=== PATIENT | female | born 1955 | race Caucasian/White ===

== ENCOUNTER 2017-07-29 08:45 | Outpatient (CLI) | payer MEDICAID ==
[~2017-07-29] VITALS: Ht 162.6 cm; Wt 124.4 kg
[2017-07-29] VITALS (18 sets, daily range): BP systolic 128–171; BP diastolic 53–73
[~2017-07-29 08:45] MED LIST: FENOFIBRATE MIC67 MG PO; GLYBURIDE 5MG TA5 MG PO; JANUVIA100 MG PO; LEVOTHYROXIN0.088 MG PO; LISINOPRIL 20MG20 MG PO; METFORMIN 500M500 MG PO; SIMVASTATIN20 MG PO
[2017-07-29 09:28] LABS: HEMOGLOBIN 6.8 g/dL (12.2-16.2)
[2017-07-29 10:13] LABS: ABO BLOOD TYPE A; RH BLOOD TYPE NEGATIVE
[2017-07-29 10:35] LABS: ANTIHUMAN GLOB CROSSMATCH COMPAT
[2017-07-29] MEDS ORDERED: ACTONEL30 MG PO (15:29)
[2017-07-29] MEDS ORDERED: ACTOS30 MG PO (15:30)
[2017-07-29] MEDS ORDERED: ASPIRIN 81MG TA81 MG PO (15:31)
[2017-07-29] MEDS ORDERED: LIPITOR40 MG PO (15:32)
[2017-07-29] MEDS ORDERED: HYDROCHLOROTHIA25 M1 PO (15:33)
[2017-07-29] MEDS ORDERED: METFORMIN500 MG PO (15:49)
[2017-07-29] MEDS ORDERED: DAILY MULTIPLE1 TA8 PO (15:51)
[2017-07-29] MEDS ORDERED: NORVASC 10MG. T10 MG PO (15:52)
[2017-07-29] MEDS ORDERED: WARFARIN SODIUM4 MG PO (15:53)
[2017-07-29 15:54] LABS: HEMOGLOBIN 9.2 g/dL (12.2-16.2)
[2017-07-29] MEDS ORDERED: DOCUSATE SODIU100 MG PO (15:54)
[2017-07-29] MEDS ORDERED: FLORANEX PO (15:59)
[2017-07-29] MEDS ORDERED: NOVAPLUS SC (16:00)
[2017-07-29] MEDS ORDERED: GABAPENTIN300 MG PO (16:01)
[2017-07-29] MEDS ORDERED: TYLENOL ES500 MG PO (16:05)
== END 2017-07-29 16:45 | disposition home or self-care (01) ==
LOC: COP 08:45
PROVIDERS: Internal Medicine Adolescent Medicine
DX: D64.9 Anemia, unspecified (principal)
CPT/HCPCS: P9016

== ENCOUNTER 2017-08-21 14:36 | Emergency (ER) | payer MEDICAID ==
[~2017-08-21] VITALS: Ht 162.6 cm; Wt 116.1 kg
[~2017-08-21 14:36] MED LIST changes: +ACTONEL30 MG PO; +ACTOS30 MG PO; +ASPIRIN 81MG TA81 MG PO; +DAILY MULTIPLE1 TA8 PO; +DOCUSATE SODIU100 MG PO; +FLORANEX PO; +GABAPENTIN300 MG PO; +HYDROCHLOROTHIA25 M1 PO; +LIPITOR40 MG PO; +METFORMIN500 MG PO; +NORVASC 10MG. T10 MG PO; +NOVAPLUS SC; +TYLENOL ES500 MG PO; +WARFARIN SODIUM4 MG PO
--- OUTSIDE RECORDS SUMMARY | 2017-08-21 14:42 | External Medical Summary Rpt | Continuity of Care Document ---
Author Author Organization Address Unknown Phone Unavailable Care Team Providers Care Nursing Assoc Name Role Phone , Unavailable Unavailable EMS Current Medications Section EMS Allergies and Adverse Reactions EMS Past Medical History Medications Administered Section EMS Procedures Performed EMS Vital Signs EMS Patient Care Report Narrative [CHIEF COMPLAINT / RESPONSE] EC-1 was dispatched to [address] [place] [address] for a patient that is unresponsive. Unit responded emergently, with lights and sirens to the scene. Upon arrival at scene EC-2 found a 62 year old female laying supine on bed at residence. The general impression of the patient was unresponsive. The Chief Complaint for the patient is unresponsive. Family on scene stated that patient was complaining of dizziness before passing out on bed. Patient was placed on EMS stretcher and secured with seat belts and stretcher was secured into ambulance. Patient was positioned on stretcher in supine position. [HISTORY OF PRESENT ILLNESS] History was unable to be obtained from patient. Symptoms started about 10 minutes ago. This is rare problem for the patient. The last time this occurred was unknown. This is a rare problem that is severe now. Family on scene requests transport to Emergency Department for evaluation. [TREATMENTS ATTEMPTED PRIOR TO EMS ARRIVAL] No treatments were preformed prior to EMS arrival. [ASSESSMENT - PRIMARY] The Swatch Maker has performed a complete head to toe ALS assessment on the patient. MENTAL STATUS: Patient is unconscious and not alert. Patient is not oriented to person, place, event and time. GCS of 15. This is not normal for the patient. SKIN: [place], warm and dry HEENT/NEURO: Neuro assessment unable to preform; No JVD; positive loss of consciousness; Pupils constricted, round and unreactive to light; Trachea mid- line; All else within normal limits. CHEST/RESPIRATORY: Airway patent; Equal chest rise; Lung sounds clear bilaterally; ABDOMEN/GI: Unable to assess BACK: No abnormalities seen visually PELVIC/: Pelvis stable; Unremarkable EXTREMITIES: Good pulse in all extremities. [VITALS] : 189/120, 81 bpm, 14 rr, 95% ra, 118 bgl; 115/87, 65 bpm, 14 rr, 100% O2; 178/94, 66 bpm, 14 rr, 100% O2; 177/94, 68 bpm, 14 rr, 100% O2; 180/91, 66 bpm, 14 rr, 100% O2; 159/78, 60 bpm, 14 rr, 100% O2; 12 lead was preformed which showed the patient to be in a normal sinus rhythm with atrial fib. [RX / TREATMENT] : IO was established for possible medication and/or fluid administration; 500ml bolus of normal saline was given which had no change in patient condition; Second IV was established for medication administration; 2mg of Narcan was administered which had no change in patient condition. During transport patients O2 saturation dropped to 84%. O2 was administered via NC which improved patient O2 vital sign. [ASSESSMENT - SECONDARY] An ongoing assessment was performed every 5 minutes. No change in patient condition. [TRANSPORT] Patient was transported without incident and without delay to [facility] ED. Patient moved from stretcher to emergency department bed via draw sheet. IO and IV line still patent, no swelling or discoloration at insertion site. Patient care and report given to emergency department nurse Ella Vaughn RN. Ella Vaughn RN taking over patient care did not have any questions and received a patient report that included the patient's medications, treatments, medical history and billing information. [DOCUMENTATION/HANDOFF]: Nurse signed consent and HIPAA on paper form. Nurse signed for patient transfer of care on paper. Notice of Privacy Practices pamphlet was left with patient. [NECESSITY STATEMENT] : Patient was transported by EMS in an emergency situation due to unresponsive. [OTHER] : All times in this report are approximate. End report. Promise NR [id number]
--- OUTSIDE RECORDS SUMMARY | 2017-08-21 14:42 | External Medical Summary Rpt | Continuity of Care Document ---
Author Author Organization Address Unknown Phone Unavailable Care Team Providers Care State Fire Marshal Name Role Phone , Unavailable Unavailable EMS Current Medications Section EMS Allergies and Adverse Reactions EMS Past Medical History Medications Administered Section EMS Procedures Performed EMS Vital Signs EMS Patient Care Report Narrative [CHIEF COMPLAINT / RESPONSE] EC-1 was dispatched to [address] [place] [address] for a patient that is unresponsive. Unit [...] to EMS arrival. [ASSESSMENT - PRIMARY] The C[employer]pillar Mechanic has performed a complete head to toe ALS assessment on the patient. MENTAL STATUS: Patient is unconscious and not alert. Patient is not oriented to person, place, event and time. GCS of 15. This is not normal for the patient. SKIN: [place], warm and dry HEENT/NEURO: Neuro assessment unable [...] transported without incident and without delay to [facility] ED. Patient moved from stretcher to [...] report are approximate. End report. Promise NR [id number]
--- OUTSIDE RECORDS SUMMARY | 2017-08-21 14:42 | External Medical Summary Rpt | Continuity of Care Document ---
Author Author Organization Address Unknown Phone Unavailable Care Team Providers Care Supervisor Kennel Name Role Phone , Unavailable Unavailable EMS Current Medications Section EMS Allergies and Adverse Reactions EMS Past Medical History Medications Administered Section EMS Procedures Performed EMS Vital Signs EMS Patient Care Report Narrative [CHIEF COMPLAINT / RESPONSE] EC-1 was dispatched to [address] [place] [address] for a patient that is unresponsive. Unit [...] to EMS arrival. [ASSESSMENT - PRIMARY] The Stencil Maker has performed a complete head to toe ALS assessment on the patient. MENTAL STATUS: Patient is unconscious and not alert. Patient is not oriented to person, place, event and time. GCS of 15. This is not normal for the patient. SKIN: [place], warm and dry HEENT/NEURO: Neuro assessment unable [...] transported without incident and without delay to [facility] ED. Patient moved from stretcher to emergency [...] report are approximate. End report. Promise NR [id number]
--- OUTSIDE RECORDS SUMMARY | 2017-08-21 14:42 | External Medical Summary Rpt | Continuity of Care Document ---
Author Author Organization Address Unknown Phone Unavailable Care Team Providers Care Transition Manager Name Role Phone , Unavailable Unavailable EMS Current Medications Section EMS Allergies and Adverse Reactions EMS Past Medical History Medications Administered Section EMS Procedures Performed EMS Vital Signs EMS Patient Care Report Narrative [CHIEF COMPLAINT / RESPONSE] EC-1 was dispatched to [address] [place] [address] for a patient that is unresponsive. Unit [...] to EMS arrival. [ASSESSMENT - PRIMARY] The Supervisor Force Adjustment has performed a complete head to toe ALS assessment on the patient. MENTAL STATUS: Patient is unconscious and not alert. Patient is not oriented to person, place, event and time. GCS of 15. This is not normal for the patient. SKIN: [place], warm and dry HEENT/NEURO: Neuro assessment unable [...] transported without incident and without delay to [facility] ED. Patient moved from stretcher to emergency [...] report are approximate. End report. Promise NR [id number]
--- OUTSIDE RECORDS SUMMARY | 2017-08-21 14:43 | External Medical Summary Rpt | Continuity of Care Document ---
Author Author Organization Address Unknown Phone Unavailable Care Team Providers Care Mechanical Equipment Test Engineer Name Role Phone , Unavailable Unavailable EMS Current Medications Section EMS Allergies and Adverse Reactions EMS Past Medical History Medications Administered Section EMS Procedures Performed EMS Vital Signs EMS Patient Care Report Narrative Dispatched to for patient transport to [facility] in [facility]. Patient was admitted to hospital following CVA. Patient is being transported by ambulance to facility due to weakness in lower extremities from CVA. Patient was found in bed semi diaz's and transferred to and from [facility] via drawsheet X4. Patient is A/O X2 and her GCS remained 13 throughout transport. Patients vitals were taken and remained stable. Patient transport was completed with no complications. When arriving at destination patient care and report were transferred to facility staff.
--- OUTSIDE RECORDS SUMMARY | 2017-08-21 14:43 | External Medical Summary Rpt | Continuity of Care Document ---
Author Author Organization Address Unknown Phone Unavailable Care Team Providers Care Visiting Housekeeper Name Role Phone , Unavailable Unavailable EMS Current Medications Section EMS Allergies and Adverse Reactions EMS Past Medical History Medications Administered Section EMS Procedures Performed EMS Vital Signs EMS Patient Care Report Narrative Dispatched to for patient transport to [facility] in [facility]. Patient was admitted to hospital following CVA. Patient is being transported by ambulance to facility due to weakness in lower extremities from CVA. Patient was found in bed semi diaz's and transferred to and from [facility] via drawsheet X4. Patient is A/O X2 and her GCS remained 13 throughout transport. Patients vitals were taken and remained stable. Patient transport was completed with no complications. When arriving at destination patient care and report were transferred to facility staff.
--- OUTSIDE RECORDS SUMMARY | 2017-08-21 14:49 | External Medical Summary Rpt | CCD ---
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 coli] as the cause of diseases classified elsewhere D64.9 Anemia, 08-02-2017 unspecified D69.6 Thrombocyto 08-02-2017 penia, unspecified D72.829 Elevated 08-02-2017 white blood cell count, unspecified E03.9 Hypothyroid 08-02-2017 ism, unspecified E11.40 Type 2 08-02-2017 diabetes mellitus with diabetic neuropathy, unspecified E11.9 Type 2 08-02-2017 diabetes mellitus without complicatio ns E66.01 Morbid 08-02-2017 (severe) obesity due to excess calories E78.5 Hyperlipide 08-02-2017 mei, unspecified E83.39 Other 08-02-2017 disorders of phosphorus metabolism E83.42 Hypomagnese 08-02-2017 mei E83.51 Hypocalcemi 08-02-2017 a E87.0 Hyperosmola 08-02-2017 lity and hypernatrem ia E87.1 Hypo-osmola 08-02-2017 lity and hyponatremi a E87.6 Hypokalemia 08-02-2017 E87.70 Fluid 08-02-2017 overload, unspecified E87.8 Other 08-02-2017 disorders of electrolyte and fluid balance, not elsewhere classified G93.40 Encephalopa 08-02-2017 thy, unspecified G93.6 Cerebral 08-02-2017 edema I10 Essential 08-02-2017 (primary) hypertensio n I48.91 Unspecified 08-02-2017 atrial fibrillatio n I63.9 Cerebral 08-02-2017 infarction, unspecified I65.01 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 I77.1 Stricture 08-02-2017 of artery I82.443 Acute 08-02-2017 embolism and thrombosis of tibial vein, bilateral I82.493 Acute 08-02-2017 embolism and thrombosis of other specified deep vein of lower extremity, bilateral I82.4Z1 Acute 08-02-2017 embolism and thrombosis of unspecified deep veins of right distal lower extremity J96.00 Acute 08-02-2017 respiratory failure, unspecified whether with hypoxia or hypercapnia N39.0 Urinary 08-02-2017 tract infection, site not specified R13.10 Dysphagia, 08-02-2017 unspecified R19.7 Diarrhea, 08-02-2017 unspecified R40.2112 Coma scale, 08-02-2017 eyes open, never, at arrival to emergency department R40.2212 Coma scale, 08-02-2017 best verbal response, none, at arrival to emergency department R40.2312 Coma scale, 08-02-2017 best motor response, none, at arrival to emergency department R45.1 Restlessnes 08-02-2017 s and agitation R47.01 Aphasia 08-02-2017 R47.1 Dysarthria 08-02-2017 and anarthria R63.3 Feeding 08-02-2017 difficultie s Z68.42 Body mass 08-02-2017 index (BMI) 45.0-49.9, adult Z78.1 Physical 08-02-2017 restraint status 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 I69.391 Dysphagia 07-27-2017 following cerebral infarction I82.409 Acute 07-27-2017 embolism and thrombosis of unspecified deep veins of unspecified lower extremity R94.31 Abnormal 07-27-2017 electrocard iogram [ECG] [EKG] Medications Na ND Rx Da Fi Fi Am Da Di Ph RX Ph St me C No te ll ll ou ys ag ar # ys at rm s nt no ma ic us Or Da si cy ia de te s n re d SI 68 08 10 2 [address] Ac MV 38 -1 -2 .0 PE 17 ON ti 20 9- 5- 00 RS 52 E ve TA 06 20 20 DI TI 71 11 11 FA XI N 0 WV E [address] UG TA BL ET ME 50 08 10 2 60 30 SO 38 TA Ac TO 74 -1 -2 .0 PE 17 MA ti MD 20 RS 80 RE ve OL 10 20 20 N OL 91 11 11 FA JA 0 WV NE TA LY T RT RA DR TE UG 10 0 MG TA B LE 00 08 10 2 30 30 SO 38 TA Ac VO 37 -1 -2 .0 PE 17 MA ti TH 81 RS 82 RE ve YR 80 20 20 N OX 70 11 11 FA JA IN 1 WV NE E LY T 88 DR MC UG G TA BL ET LO 60 08 10 2 [address] Ac SA 50 -1 -0 .0 PE 17 ON ti RT 52 RS 51 E ve AN 91 20 20 DI -H 70 [address] 9 WV E Z LY D 10 0- DR 25 UG MG TA B TR 00 08 10 2 30 30 SO 38 TA Ac IC 07 -1 -0 .0 PE 17 MA ti OR 46 RS 81 RE ve 12 20 20 N 48 29 11 11 FA JA 0 WV NE MG LY T TA DR BL UG ET 64 08 10 2 60 30 SO 38 TA Ac 72 -1 -0 .0 PE 17 MA ti 00 RS 83 RE ve 12 20 20 N 51 11 11 FA JA 0 WV NE LY T DR UG AC 64 08 10 2 30 30 SO 38 TA Ac TO 76 -1 -0 .0 PE 17 MA ti S 40 RS 84 RE ve 30 30 20 20 N 11 11 11 FA JA MG 4 WV NE LY T TA BL DR ET UG 00 08 10 2 30 30 SO 38 TA Ac 17 -1 -0 .0 PE 17 MA ti 24 RS 85 RE ve 28 20 20 N 66 11 11 FA JA 0 WV NE LY T DR UG ME 68 08 10 2 30 30 SO 38 TA Ac TF 38 -1 -0 .0 PE 17 MA ti OR 20 RS 86 RE ve WV 02 20 20 N N 81 11 11 FA JA HC 0 WV NE L LY T [address] MG UG TA BL ET LE 00 08 09 2 30 30 SO 38 TA Ac VO 37 -1 -2 .0 PE 17 MA ti TH 81 RS 82 RE ve YR 80 20 20 N OX 70 11 11 FA JA IN 1 WV NE E LY T 88 DR MC UG G TA BL ET SI 68 08 09 2 [address] Ac MV 38 -1 -2 .0 PE 17 ON ti 20 9- 3- 00 RS 52 E ve TA 06 20 20 DI TI 71 11 11 FA XI N 0 WV E [address] UG TA BL ET ME 50 08 09 2 60 30 SO 38 TA Ac TO 74 -1 -2 .0 PE 17 MA ti MD 20 9- 3 00 RS 80 RE ve OL 10 20 20 N OL 91 11 11 FA JA 0 WV NE TA LY T RT RA DR TE UG 10 0 MG TA B PE 00 09 09 0 30 7 SO 38 AL Ac NI 78 -1 -1 .0 PE 40 LE ti CI 11 4- 4- 00 RS 89 N ve LL 65 20 20 BR IN 51 11 11 FA AN 0 WV DO VK LY N I 50 DR 0 UG MG TA BL ET 00 08 09 2 30 30 SO 38 TA Ac 17 -1 -0 .0 PE 17 MA ti 24 9 RS 85 RE ve 28 20 20 N 66 11 11 FA JA 0 WV NE LY T DR UG 64 07 09 2 [address] Ac 72 -0 -0 .0 PE 81 ON ti 00 8 6 RS 77 E ve 12 20 20 DI 51 11 11 FA XI 1 W[place] E LY D DR UG AC 64 08 09 1 [address] Ac TO 76 -0 -0 .0 PE 04 ON ti S 40 5- 6- 00 RS 72 E ve 30 30 20 20 DI 11 11 11 FA XI MG 4 WV E LY D TA BL DR ET UG TR 00 08 09 1 [address] Ac IC 07 -0 -0 .0 PE 04 ON ti OR 46 5- 6- 00 RS 73 E ve 12 20 20 DI 48 29 11 11 FA XI 0 WV E MG LY D TA DR BL UG ET LO 13 08 09 2 [address] Ac SA 66 -1 -0 .0 PE 17 ON ti RT 80 9- 6- 00 RS 51 E ve AN 11 20 20 DI -H 89 [address] 0 WV E Z LY D 10 0- DR 25 UG MG TA B ME 68 08 09 2 30 30 SO 38 TA Ac TF 38 -1 -0 .0 PE 17 MA ti OR 20 9- 6- 00 RS 86 RE ve WV 02 20 20 N N 81 11 11 FA JA HC 0 WV NE L LY T [address] MG UG TA BL ET LE 00 07 08 1 [address] Ac VO 37 -2 -2 .0 PE 96 ON ti TH 81 6- 4- 00 RS 11 E ve YR 80 20 20 DI OX 70 11 11 FA XI IN 1 WV E E LY D 88 DR MC UG G TA BL ET ME 50 07 08 1 [address] Ac TO 74 -2 -2 .0 PE 96 ON ti MD 20 6- 4 00 RS 12 E ve OL 10 20 20 DI OL 91 11 11 FA XI 0 WV E TA LY D RT RA DR TE UG 10 0 MG TA B SI 68 08 08 2 [address] Ac MV 38 -1 -1 .0 PE 17 ON ti 20 9 9 RS 52 E ve TA 06 20 20 DI TI 71 11 11 FA XI N 0 WV E [address] UG TA BL ET 00 07 08 1 [address] Ac 17 -0 -1 .0 PE 81 ON ti 24 8- 1 00 RS 76 E ve 28 20 20 DI 66 11 11 FA XI 0 W[place] E LY D DR UG LO 13 07 08 1 [address] Ac SA 66 -0 -0 .0 PE 81 ON ti RT 80 8- 5- 00 RS 74 E ve AN 11 20 20 DI -H 89 [address] 0 WV E Z LY D 10 0- DR 25 UG MG TA B 64 07 08 2 [address] Ac 72 -0 -0 .0 PE 81 ON ti 00 8- RS 77 E ve 12 20 20 DI 51 11 11 FA XI 1 W[place] E LY D DR UG AC 64 08 08 1 [address] Ac TO 76 -0 -0 .0 PE 04 ON ti S 40 5- 5- 00 RS 72 E ve 30 30 20 20 DI 11 11 11 FA XI MG 4 WV E LY D TA BL DR ET UG TR 00 08 08 1 [address] Ac IC 07 -0 -0 .0 PE 04 ON ti OR 46 5- 5- 00 RS 73 E ve 12 20 20 DI 48 29 11 11 FA XI 0 WV E MG LY D TA DR BL UG ET LE 00 07 07 1 [address] Ac VO 37 -2 -2 .0 PE 96 ON ti TH 81 6 00 RS 11 E ve YR 80 20 20 DI OX 70 11 11 FA XI IN 1 WV E E LY D 88 DR MC UG G TA BL ET ME 63 07 07 1 [address] Ac TO 30 -2 -2 .0 PE 96 ON ti MD 40 6- 6 00 RS 12 E ve OL 58 20 20 DI OL 11 11 11 FA XI 0 WV E TA LY D RT RA DR TE UG 10 0 MG TA B SI 68 07 07 0 [address] Ac MV 38 -1 -2 .0 PE 85 ON ti 20 3- 0- 00 RS 08 E ve TA 06 20 20 DI TI 71 11 11 FA XI N 0 WV E [address] UG TA BL ET TR 00 07 07 0 [address] Ac IC 07 -0 -0 .0 PE 81 ON ti OR 46 RS 72 E ve 12 20 20 DI 48 29 11 11 FA XI 0 WV E MG LY D TA DR BL UG ET ME 68 07 07 0 [address] Ac TF 38 -0 -0 .0 PE 81 ON ti OR 20 RS 73 E ve WV 02 20 20 DI N 81 11 11 FA XI HC 0 WV E L LY D [address] MG UG TA BL ET LO 60 07 07 1 [address] Ac SA 50 -0 -0 .0 PE 81 ON ti RT 52 8 RS 74 E ve AN 91 20 20 DI -H 70 [address] 3 WV E Z LY D 10 0- DR 25 UG MG TA B 64 07 07 2 [address] Ac 72 -0 -0 .0 PE 81 ON ti 00 RS 77 E ve 12 20 20 DI 51 11 11 FA XI 1 [place] E LY D DR UG AC 64 07 07 0 [address] Ac TO 76 -0 -0 .0 PE 81 ON ti S 40 RS 78 E ve 30 30 20 20 DI 11 11 11 FA XI MG 4 WV E LY D TA BL DR ET UG 00 07 07 1 [address] Ac 17 -0 -0 .0 PE 81 ON ti 24 RS 76 E ve 28 20 20 DI 66 11 11 FA XI 0 [place] E LY D DR UG 00 02 06 2 [address] Ac 78 -0 -2 .0 PK 16 ON ti 15 3- 2- 00 IN 35 E ve 18 20 20 S 5 DI 30 11 11 XI 1 UG E D CO MP AN Y IN C 00 05 06 2 [address] Ac 78 -1 -2 .0 PK 16 ON ti 11 9- 2- 00 IN 88 E ve 22 20 20 S 9 DI 81 11 11 XI 0 UG E D CO MP AN Y IN C SI 65 05 06 2 [address] Ac MV 86 -1 -2 .0 PK 16 ON ti 20 9- 2- 00 IN 89 E ve TA 05 20 20 S 0 DI TI [address] REGALADO N 9 UG E 20 D CO MG MP AN TA Y BL IN ET C 63 05 05 2 [address] Ac 30 -1 -2 .0 PK 16 ON ti 40 8- 7- 00 IN 97 E ve 48 20 20 S 7 DI [address] REGALADO 1 UG E D CO MP AN Y IN C ME 68 05 05 2 [address] Ac TF 38 -1 -2 .0 PK 16 ON ti OR 20 8- 7- 00 IN 97 E ve WV 02 20 20 S 8 DI N [address] REGALADO HC 0 UG E L D 50 CO 0 MP MG AN Y TA IN BL C ET GL 00 02 05 2 60 30 HO 10 TA Ac YB 09 -0 -2 .0 PK 15 MA ti UR 38 3- 3- 00 IN 98 RE ve ID 34 20 20 S 0 N E [address] [facility] 5 5 UG NE MG T CO TA MP BL AN ET Y IN C TR 00 02 05 2 [address] Ac IC 07 -0 -1 .0 PK 15 ON ti OR 46 3- 9- 00 IN 98 E ve 12 20 20 S 1 DI 48 29 11 11 XI 0 UG E MG D CO TA MP BL AN ET Y IN C 00 02 05 2 [address] Ac 78 -0 -1 .0 PK 16 ON ti 15 3- 9- 00 IN 35 E ve 18 20 20 S 5 DI 30 11 11 XI 1 UG E D CO MP AN Y IN C LO 00 05 05 2 [address] Ac SA 09 -1 -1 .0 PK 16 ON ti RT 37 8- 9- 00 IN 88 E ve AN 36 20 20 S 8 DI -H [address] 8 UG E Z D 10 CO 0- MP 25 AN Y MG IN C TA B 00 05 05 2 [address] Ac 78 -1 -1 .0 PK 16 ON ti 11 9- 9- 00 IN 88 E ve 22 20 20 S 9 DI 81 11 11 XI 0 UG E D CO MP AN Y IN C SI 65 05 05 2 [address] Ac MV 86 -1 -1 .0 PK 16 ON ti 20 9- 9- 00 IN 89 E ve TA 05 20 20 S 0 DI TI [address] FABRICIO N 9 UG E 20 D CO MG MP AN TA Y BL IN ET C 63 02 04 2 30 30 HO 10 TA Ac 30 -0 -2 .0 PK 15 MA ti 40 3- 8- 00 IN 18 RE ve 48 20 20 S 5 N [address] [facility] 1 UG NE T CO MP AN Y IN C 00 02 04 2 60 30 HO 10 TA Ac 78 -0 -1 .0 PK 14 MA ti 11 3- 9- 00 IN 79 RE ve 22 20 20 S 3 N [address] [place] 0 UG NE T CO MP AN Y IN C ME 68 02 04 2 30 30 HO 10 TA Ac TF 38 -0 -1 .0 PK 15 MA ti OR 20 3- 9- 00 IN 18 RE ve WV 02 20 20 S 4 N N [address] [facility] HC 0 UG NE L T 50 CO 0 MP MG AN Y TA IN BL C ET GL 00 02 04 2 60 30 HO 10 TA Ac YB 09 -0 -1 .0 PK 15 MA ti UR 38 3- 9- 00 IN 98 RE ve ID 34 20 20 S 0 N E [address] [facility] 5 5 UG NE MG T CO TA MP BL AN ET Y IN C 00 02 04 2 [address] Ac 78 -0 -1 .0 PK 16 ON ti 15 3- 2- 00 IN 35 E ve 18 20 20 S 5 DI [address] REG[facility] 1 UG E D CO MP AN Y IN C LO 00 02 04 2 30 30 HO 10 TA Ac SA 09 -0 -1 .0 PK 14 MA ti RT 37 3- 2- 00 IN 79 RE ve AN 36 20 20 S 4 N -H [address] 8 UG NE Z T 10 CO 0- MP 25 AN Y MG IN C TA B SI 65 02 04 2 30 30 HO 10 TA Ac MV 86 -0 -1 .0 PK 14 MA ti 20 3- 2- 00 IN 92 RE ve TA 05 20 20 S 7 N TI [address] [place] N 9 UG NE 20 T CO MG MP AN TA Y BL IN ET C TR 00 02 03 2 [address] Ac IC 07 -0 -2 .0 PK 15 ON ti OR 46 3- 2- 00 IN 98 E ve 12 20 20 S 1 DI [address] REG[facility]ADO 0 UG E MG D CO TA MP BL AN ET Y IN C GL 00 02 03 2 60 30 HO 10 TA Ac YB 09 -0 -2 .0 PK 15 MA ti UR 38 3- 2- 00 IN 98 RE ve ID 34 20 20 S 0 N E [address] [facility] 5 5 UG NE MG T CO TA MP BL AN ET Y IN C ME 68 02 03 2 30 30 HO 10 TA Ac TF 38 -0 -2 .0 PK 15 MA ti OR 20 3- 1- 00 IN 18 RE ve WV 02 20 20 S 4 N N [address] [facility] HC 0 UG NE L T 50 CO 0 MP MG AN Y TA IN BL C ET 63 02 03 2 30 30 HO 10 TA Ac 30 -0 -2 .0 PK 15 MA ti 40 3- 1- 00 IN 18 RE ve 48 20 20 S 5 N [address] [facility] 1 UG NE T CO MP AN Y IN C LO 00 02 03 2 30 30 HO 10 TA Ac SA 09 -0 -1 .0 PK 14 MA ti RT 37 3- 0- 00 IN 79 RE ve AN 36 20 20 S 4 N -H [address] 8 UG NE Z T 10 CO 0- MP 25 AN Y MG IN C TA B SI 65 02 03 2 30 30 HO 10 TA Ac MV 86 -0 -1 .0 PK 14 MA ti 20 3- 0- 00 IN 92 RE ve TA 05 20 20 S 7 N TI [address] [place] N 9 UG NE 20 T CO MG MP AN TA Y BL IN ET C 00 10 03 2 30 30 HO 10 TA Ac 78 -2 -0 .0 PK 13 MA ti 15 2- 8- 00 IN 91 RE ve 18 20 20 S 6 N [address] [place] 1 UG NE T CO MP AN Y IN C 00 02 03 2 60 30 HO 10 TA Ac 78 -0 -0 .0 PK 14 MA ti 11 3- 8- 00 IN 79 RE ve 22 20 20 S 3 N [address] [place] 0 UG NE T CO MP AN Y IN C AC 64 02 03 2 60 30 HO 10 TA Ac TO 76 -0 -0 .0 PK 14 MA ti S 40 3- 8- 00 IN 79 RE ve 15 15 20 20 S 5 N [address] [facility] MG 4 UG NE T TA CO BL MP ET AN Y IN C TR 00 10 02 3 [address] Ac IC 07 -2 -1 .0 PK 12 ON ti OR 46 2- 8- 00 IN 22 E ve 12 20 20 S 2 DI [address] REG[facility] 0 UG E MG D CO TA MP BL AN ET Y IN C GL 00 10 02 2 60 30 HO 10 TA Ac YB 09 -2 -1 .0 PK 13 MA ti UR 38 2- 8- 00 IN 69 RE ve ID 34 20 20 S 1 N E [address] [facility] 5 5 UG NE MG T CO TA MP BL AN ET Y IN C ME 68 02 02 2 30 30 HO 10 TA Ac TF 38 -0 -1 .0 PK 15 MA ti OR 20 3- 8- 00 IN 18 RE ve WV 02 20 20 S 4 N N [address] [facility] HC 0 UG NE L T 50 CO 0 MP MG AN Y TA IN BL C ET 63 02 02 2 30 30 HO 10 TA Ac 30 -0 -1 .0 PK 15 MA ti 40 3- 8- 00 IN 18 RE ve 48 20 20 S 5 N [address] [facility] 1 UG NE T CO MP AN Y IN C SI 65 02 02 2 30 30 HO 10 TA Ac MV 86 -0 -0 .0 PK 14 MA ti 20 3- 9- 00 IN 92 RE ve TA 05 20 20 S 7 N TI [address] [place] N 9 UG NE 20 T CO MG MP AN TA Y BL IN ET C 00 02 02 2 60 30 HO 10 TA Ac 78 -0 -0 .0 PK 14 MA ti 11 3- 3- 00 IN 79 RE ve 22 20 20 S 3 N [address] [place] 0 UG NE T CO MP AN Y IN C LO 00 02 02 2 30 30 HO 10 TA Ac SA 09 -0 -0 .0 PK 14 MA ti RT 37 3- 3- 00 IN 79 RE ve AN 36 20 20 S 4 N -H [address] 8 UG NE Z T 10 CO 0- MP 25 AN Y MG IN C TA B AC 64 02 02 2 60 30 HO 10 TA Ac TO 76 -0 -0 .0 PK 14 MA ti S 40 3- 3- 00 IN 79 RE ve 15 15 20 20 S 5 N [address] [facility] MG 4 UG NE T TA CO BL MP ET AN Y IN C 00 10 01 2 30 30 HO 10 TA Ac 78 -2 -2 .0 PK 13 MA ti 15 2- 8- 00 IN 91 RE ve 18 20 20 S 6 N [address] [place] 1 UG NE T CO MP AN Y IN C 63 11 01 2 30 30 HO 10 TA Ac 30 -1 -1 .0 PK 12 MA ti 40 9- 9- 00 IN 85 RE ve 48 20 20 S 4 N [address] [facility] 1 UG NE T CO MP AN Y IN C GL 00 10 01 2 60 30 HO 10 TA Ac YB 09 -2 -1 .0 PK 13 MA ti UR 38 2- 9- 00 IN 69 RE ve ID 34 20 20 S 1 N E [address] [facility] 5 5 UG NE MG T CO TA MP BL AN ET Y IN C ME 68 01 01 30 30 HO 10 TA Ac TF 38 -1 -1 .0 PK 14 MA ti OR 20 9- 9- 00 IN 46 RE ve WV 02 20 20 S 3 N N [address] [facility] HC 0 UG NE L T 50 CO 0 MP MG AN Y TA IN BL C ET TR 00 10 01 3 [address] Ac IC 07 -2 -1 .0 PK 12 ON ti OR 46 2- 0- 00 IN 22 E ve 12 20 20 S 2 DI 48 29 10 11 XI 0 UG E MG D CO TA MP BL AN ET Y IN C SI 65 10 01 2 30 30 HO 10 TA Ac MV 86 -2 -1 .0 PK 12 MA ti 20 2- 0- 00 IN 22 RE ve TA 05 20 20 S 1 N TI [address] [place] N 9 UG NE 20 T CO MG MP AN TA Y BL IN ET C LO 00 10 12 2 30 30 HO 10 TA Ac SA 09 -2 -2 .0 PK 11 MA ti RT 37 7- 9- 00 IN 94 RE ve AN 36 20 20 S 6 N -H [address] 8 UG NE Z T 10 CO 0- MP 25 AN Y MG IN C TA B 00 10 12 2 60 30 HO 10 TA Ac 78 -2 -2 .0 PK 11 MA ti 11 2- 9- 00 IN 94 RE ve 22 20 20 S 8 N [address] [facility] 0 UG NE T CO MP AN Y IN C AC 64 11 12 2 60 30 HO 10 TA Ac TO 76 -0 -2 .0 PK 12 MA ti S 40 1- 9- 00 IN 07 RE ve 15 15 20 20 S 8 N [address] [facility] MG 4 UG NE T TA CO BL MP ET AN Y IN C 00 10 12 2 30 30 HO 10 TA Ac 78 -2 -2 .0 PK 13 MA ti 15 2- 9- 00 IN 91 RE ve 18 20 20 S 6 N [address] [place] 1 UG NE T CO MP AN Y IN C ME 68 10 12 2 30 30 HO 10 TA Ac TF 38 -2 -2 .0 PK 11 MA ti OR 20 2- 0- 00 IN 82 RE ve WV 02 20 20 S 8 N N [address] [facility] HC 0 UG NE L T 50 CO 0 MP MG AN Y TA IN BL C ET 63 11 12 2 30 30 HO 10 TA Ac 30 -1 -2 .0 PK 12 MA ti 40 9- 0- 00 IN 85 RE ve 48 20 20 S 4 N [address] [place] 1 UG NE T CO MP AN Y IN C GL 00 10 12 2 60 30 HO 10 TA Ac YB 09 -2 -2 .0 PK 13 MA ti UR 38 2- 0- 00 IN 69 RE ve ID 34 20 20 S 1 N E [address] [facility] 5 5 UG NE MG T CO TA MP BL AN ET Y IN C TR 00 10 12 3 [address] Ac IC 07 -2 -0 .0 PK 12 ON ti OR 46 2- 6- 00 IN 22 E ve 12 20 20 S 2 DI [address] XI 0 UG E MG D CO TA MP BL AN ET Y IN C SI 65 10 12 2 30 30 HO 10 TA Ac MV 86 -2 -0 .0 PK 12 MA ti 20 2- 6- 00 IN 22 RE ve TA 05 20 20 S 1 N TI [address] [place] N 9 UG NE 20 T CO MG MP AN TA Y BL IN ET C AC 64 11 11 2 60 30 HO 10 TA Ac TO 76 -0 -2 .0 PK 12 MA ti S 40 1- 9- 00 IN 07 RE ve 15 15 20 20 S 8 N [address] [facility] MG 4 UG NE T TA CO BL MP ET AN Y IN C 00 07 11 2 30 30 HO 10 TA Ac 78 -2 -2 .0 PK 10 MA ti 15 3- 6- 00 IN 95 RE ve 18 20 20 S 8 N [address] [place] 1 UG NE T CO MP AN Y IN C LO 00 10 11 2 30 30 HO 10 TA Ac SA 09 -2 -2 .0 PK 11 MA ti RT 37 7- 6- 00 IN 94 RE ve AN 36 20 20 S 6 N -H [address] 8 UG NE Z T 10 CO 0- MP 25 AN Y MG IN C TA B 00 10 11 2 60 30 HO 10 TA Ac 78 -2 -2 .0 PK 11 MA ti 11 2- 6- 00 IN 94 RE ve 22 20 20 S 8 N [address] [facility] 0 UG NE T CO MP AN Y IN C ME 68 10 11 2 30 30 HO 10 TA Ac TF 38 -2 -1 .0 PK 11 MA ti OR 20 2- 9- 00 IN 82 RE ve WV 02 20 20 S 8 N N [address] [facility] HC 0 UG NE L T 50 CO 0 MP MG AN Y TA IN BL C ET 63 11 11 2 30 30 HO 10 TA Ac 30 -1 -1 .0 PK 12 MA ti 40 9- 9- 00 IN 85 RE ve 48 20 20 S 4 N [address] [place] 1 UG NE T CO MP AN Y IN C 00 07 11 2 [address] Ac 78 -2 -0 .0 PK 09 ON ti 11 3- 4- 00 IN 52 E ve 19 20 20 S 1 DI 11 10 10 XI 0 UG E D CO MP AN Y IN C TR 00 10 11 3 [address] Ac IC 07 -2 -0 .0 PK 12 ON ti OR 46 2- 4- 00 IN 22 E ve 12 20 20 S 2 DI 48 29 10 10 XI 0 UG E MG D CO TA MP BL AN ET Y IN C SI 65 10 11 2 30 30 HO 10 TA Ac MV 86 -2 -0 .0 PK 12 MA ti 20 2- 4- 00 IN 22 RE ve TA 05 20 20 S 1 N TI [address] [place] N 9 UG NE 20 T CO MG MP AN TA Y BL IN ET C AC 64 11 11 2 60 30 HO 10 TA Ac TO 76 -0 -0 .0 PK 12 MA ti S 40 1- 1- 00 IN 07 RE ve 15 15 20 20 S 8 N [address] [facility] MG 4 UG NE T TA CO BL MP ET AN Y IN C 00 07 10 2 30 30 HO 10 TA Ac 78 -2 -2 .0 PK 10 MA ti 15 3- 7- 00 IN 95 RE ve 18 20 20 S 8 N 30 10 10 JA 1 UG NE T CO MP AN Y IN C HY 00 10 10 2 30 30 HO 10 TA Ac ZA 00 -2 -2 .0 PK 11 MA ti AR 60 7- 7- 00 IN 94 RE ve 74 20 20 S 6 N [address] JA 0- 1 UG NE 25 T CO TA MP BL AN ET Y IN C 00 10 10 2 60 30 HO 10 TA Ac 78 -2 -2 .0 PK 11 MA ti 11 2- 7- 00 IN 94 RE ve 22 20 20 S 8 N 81 10 10 JA 0 UG NE T CO MP AN Y IN C ME 68 10 10 2 30 30 HO 10 TA Ac TF 38 -2 -2 .0 PK 11 MA ti OR 20 2- 2- 00 IN 82 RE ve WV 02 20 20 S 8 N N [address] [facility] HC 0 UG NE L T 50 CO 0 MP MG AN Y TA IN BL C ET 00 07 10 2 [address] Ac 17 -2 -1 .0 PK 09 ON ti 24 3- 8- 00 IN 85 E ve 28 20 20 S 5 DI 06 10 10 XI 0 UG E D CO MP AN Y IN C TR 00 07 10 2 [address] Ac IC 07 -2 -0 .0 PK 09 ON ti OR 46 3- 4- 00 IN 52 E ve 12 20 20 S 2 DI [address] XI 0 UG E MG D CO TA MP BL AN ET Y IN C SI 65 07 10 2 30 30 HO 10 TA Ac MV 86 -2 -0 .0 PK 09 MA ti 20 3- 4- 00 IN 34 RE ve TA 05 20 20 S 0 N TI [address] [facility] N 9 UG NE 20 T CO MG MP AN TA Y BL IN ET C 00 07 09 2 60 30 HO 10 TA Ac 78 -2 -2 .0 PK 09 MA ti 11 3- 9- 00 IN 33 RE ve 22 20 20 S 7 N 81 10 10 JA 0 UG NE T CO MP AN Y IN C AC 64 07 09 2 30 30 HO 10 TA Ac TO 76 -2 -2 .0 PK 09 MA ti S 40 3- 7- 00 IN 33 RE ve 30 30 20 20 S 8 N [address] ALEX MG 4 UG NE T TA CO BL MP ET AN Y IN C HY 00 07 09 2 30 30 HO 10 TA Ac ZA 00 -2 -2 .0 PK 09 MA ti AR 60 3- 7- 00 IN 33 RE ve 74 20 20 S 9 N [address] ALEX 0- 1 UG NE 25 T CO TA MP BL AN ET Y IN C 00 07 09 2 30 30 HO 10 TA Ac 78 -2 -2 .0 PK 10 MA ti 15 3- 7- 00 IN 95 RE ve 18 20 20 S 8 N [address] [place] 1 UG NE T CO MP AN Y IN C ME 68 07 09 [address] Ac TF 38 -2 -2 .0 PK 09 ON ti OR 20 3- 2- 00 IN 18 E ve WV 02 20 20 S 2 DI N [address] FABRICIO HC 0 UG E L D 50 CO 0 MP MG AN Y TA IN BL C ET 00 07 09 2 [address] Ac 78 -2 -1 .0 PK 09 ON ti 11 3- 7- 00 IN 52 E ve 19 20 20 S 1 DI [address] XI 0 UG E D CO MP AN Y IN C 00 07 09 2 [address] Ac 17 -2 -1 .0 PK 09 ON ti 24 3- 7- 00 IN 85 E ve 28 20 20 S 5 DI [address] XI 0 UG E D CO MP AN Y IN C TR 00 07 09 2 [address] Ac IC 07 -2 -0 .0 PK 09 ON ti OR 46 3- 3- 00 IN 52 E ve 12 20 20 S 2 DI [address] XI 0 UG E MG D CO TA MP BL AN ET Y IN C SI 65 07 09 2 30 30 HO 10 TA Ac MV 86 -2 -0 .0 PK 09 MA ti 20 3- 3- 00 IN 34 RE ve TA 05 20 20 S 0 N TI [address] [place] N 9 UG NE 20 T CO MG MP AN TA Y BL IN ET C 00 07 08 2 60 30 HO 10 TA Ac 78 -2 -3 .0 PK 09 MA ti 11 3- 0- 00 IN 33 RE ve 22 20 20 S 7 N [address] JA 0 UG NE T CO MP AN Y IN C 00 01 08 2 30 30 HO 10 TA Ac 78 -2 -2 .0 PK 08 MA ti 15 5- 7- 00 IN 53 RE ve 18 20 20 S 3 N [address] [facility] 1 UG NE T CO MP AN Y IN C AC 64 07 08 2 30 30 HO 10 TA Ac TO 76 -2 -2 .0 PK 09 MA ti S 40 3- 7- 00 IN 33 RE ve 30 30 20 20 S 8 N [address] [facility] MG 4 UG NE T TA CO BL MP ET AN Y IN C HY 00 07 08 2 30 30 HO 10 TA Ac ZA 00 -2 -2 .0 PK 09 MA ti AR 60 3- 7- 00 IN 33 RE ve 74 20 20 S 9 N [address] [facility] 0- 1 UG NE 25 T CO TA MP BL AN ET Y IN C ME 68 07 08 2 [address] Ac TF 38 -2 -2 .0 PK 09 ON ti OR 20 3- 3- 00 IN 18 E ve WV 02 20 20 S 2 DI N [address] REGALADO HC 0 UG E L D 50 CO 0 MP MG AN Y TA IN BL C ET 00 07 08 2 [address] Ac 17 -2 -1 .0 PK 09 ON ti 24 3- 8- 00 IN 85 E ve 28 20 20 S 5 DI 06 10 10 XI 0 UG E D CO MP AN Y IN C 00 07 08 2 [address] Ac 78 -2 -0 .0 PK 09 ON ti 11 3- 4- 00 IN 52 E ve 19 20 20 S 1 DI 11 10 10 XI 0 UG E D CO MP AN Y IN C TR 00 07 08 2 [address] Ac IC 07 -2 -0 .0 PK 09 ON ti OR 46 3- 4- 00 IN 52 E ve 12 20 20 S 2 DI 48 29 10 10 XI 0 UG E MG D CO TA MP BL AN ET Y IN C 00 01 07 2 30 30 HO 10 TA Ac 78 -2 -2 .0 PK 08 MA ti 15 5- 9- 00 IN 53 RE ve 18 20 20 S 3 N [address] [place] 1 UG NE T CO MP AN Y IN C 00 07 07 2 60 30 HO 10 TA Ac 78 -2 -2 .0 PK 09 MA ti 11 3- 9- 00 IN 33 RE ve 22 20 20 S 7 N [address] JA 0 UG NE T CO MP AN Y IN C AC 64 07 07 2 30 30 HO 10 TA Ac TO 76 -2 -2 .0 PK 09 MA ti S 40 3- 9- 00 IN 33 RE ve 30 30 20 20 S 8 N [address] ALEX MG 4 UG NE T TA CO BL MP ET AN Y IN C HY 00 07 07 2 30 30 HO 10 TA Ac ZA 00 -2 -2 .0 PK 09 MA ti AR 60 3- 9- 00 IN 33 RE ve 74 20 20 S 9 N [address] ALEX 0- 1 UG NE 25 T CO TA MP BL AN ET Y IN C SI 65 07 07 2 30 30 HO 10 TA Ac MV 86 -2 -2 .0 PK 09 MA ti 20 3- 9- 00 IN 34 RE ve TA 05 20 20 S 0 N TI [address] [place] N 9 UG NE 20 T CO MG MP AN TA Y BL IN ET C ME 68 07 07 2 [address] Ac TF 38 -2 -2 .0 PK 09 ON ti OR 20 3- 3- 00 IN 18 E ve WV 02 20 20 S 2 DI N [address] REGALADO HC 0 UG E L D 50 CO 0 MP MG AN Y TA IN BL C ET 00 01 07 2 15 30 HO 10 TA Ac 17 -2 -1 .0 PK 07 MA ti 24 5- 9- 00 IN 36 RE ve 28 20 20 S 5 N [address] [place] 0 UG NE T CO MP AN Y IN C SI 65 04 07 2 30 30 HO 10 TA Ac MV 86 -2 -0 .0 PK 06 MA ti 20 3- 2- 00 IN 87 RE ve TA 05 20 20 S 5 N TI [address] [place] N 9 UG NE 20 T CO MG MP AN TA Y BL IN ET C TR 00 05 07 1 30 30 HO 10 TA Ac IC 07 -2 -0 .0 PK 07 MA ti OR 46 8- 2- 00 IN 77 RE ve 12 20 20 S 3 N [address] [place] 0 UG NE MG T CO TA MP BL AN ET Y IN C HY 00 04 06 2 30 30 HO 10 TA Ac ZA 00 -2 -2 .0 PK 06 MA ti AR 60 3- 9- 00 IN 87 RE ve 74 20 20 S 3 N [address] [facility] 0- 1 UG NE 25 T CO TA MP BL AN ET Y IN C 00 04 06 2 60 30 HO 10 TA Ac 78 -2 -2 .0 PK 06 MA ti 11 3- 9- 00 IN 87 RE ve 22 20 20 S 4 N [address] [place] 0 UG NE T CO MP AN Y IN C AC 64 05 06 1 30 30 HO 10 TA Ac TO 76 -2 -2 .0 PK 07 MA ti S 40 8- 9- 00 IN 77 RE ve 30 30 20 20 S 2 N [address] [facility]OH[place]ON MG 4 UG NE T TA CO BL MP ET AN Y IN C 00 01 06 2 30 30 HO 10 TA Ac 78 -2 -2 .0 PK 08 MA ti 15 5- 9- 00 IN 53 RE ve 18 20 20 S 3 N [address] [place] 1 UG NE T CO MP AN Y IN C 00 01 06 2 90 30 HO 10 TA Ac 78 -2 -1 .0 PK 05 MA ti 11 5- 8- 00 IN 67 RE ve 19 20 20 S 1 N [address] [place] 0 UG NE T CO MP AN Y IN C 00 01 06 2 15 30 HO 10 TA Ac 17 -2 -1 .0 PK 07 MA ti 24 5- 8- 00 IN 36 RE ve 28 20 20 S 5 N [address] [place] 0 UG NE T CO MP AN Y IN C ME 68 05 06 1 30 30 HO 10 TA Ac TF 38 -1 -1 .0 PK 07 MA ti OR 20 4- 8- 00 IN 39 RE ve WV 02 20 20 S 0 N N [address] [facility] HC 0 UG NE L T 50 CO 0 MP MG AN Y TA IN BL C ET SI 65 04 06 2 30 30 HO 10 TA Ac MV 86 -2 -0 .0 PK 06 MA ti 20 3- 3- 00 IN 87 RE ve TA 05 20 20 S 5 N TI [address] ALEX N 9 UG NE 20 T CO MG MP AN TA Y BL IN ET C 00 03 05 2 30 30 HO 10 TA Ac 78 -2 -2 .0 PK 05 MA ti 15 9- 8- 00 IN 93 RE ve 18 20 20 S 6 N [address] JOHNSON 1 UG NE T CO MP AN Y IN C LO 00 04 05 2 30 30 HO 10 TA Ac SA 09 -2 -2 .0 PK 06 MA ti RT 37 3- 8- 00 IN 87 RE ve AN 36 20 20 S 3 N -H [address] 6 UG NE Z T 10 CO 0- MP 25 AN Y MG IN C TA B 00 04 05 2 60 30 HO 10 TA Ac 78 -2 -2 .0 PK 06 MA ti 11 3- 8- 00 IN 87 RE ve 22 20 20 S 4 N [address] JA 0 UG NE T CO MP AN Y IN C AC 64 05 05 1 30 30 HO 10 TA Ac TO 76 -2 -2 .0 PK 07 MA ti S 40 8- 8- 00 IN 77 RE ve 30 30 20 20 S 2 N [address] JA MG 4 UG NE T TA CO BL MP ET AN Y IN C TR 00 05 05 1 30 30 HO 10 TA Ac IC 07 -2 -2 .0 PK 07 MA ti OR 46 8- 8- 00 IN 77 RE ve 12 20 20 S 3 N [address] JA 0 UG NE MG T CO TA MP BL AN ET Y IN C 00 01 05 2 15 30 HO 10 TA Ac 17 -2 -1 .0 PK 07 MA ti 24 5- 4- 00 IN 36 RE ve 28 20 20 S 5 N [address] JA 0 UG NE T CO MP AN Y IN C ME 68 05 05 1 30 30 HO 10 TA Ac TF 38 -1 -1 .0 PK 07 MA ti OR 20 4- 4- 00 IN 39 RE ve WV 02 20 20 S 0 N N [address] ALEX HC 0 UG NE L T 50 CO 0 MP MG AN Y TA IN BL C ET 00 01 05 2 90 30 HO 10 TA Ac 78 -2 -0 .0 PK 05 MA ti 11 5- 4- 00 IN 67 RE ve 19 20 20 S 1 N [address] JA 0 UG NE T CO MP AN Y IN C AC 64 02 04 2 30 30 HO 10 TA Ac TO 76 -2 -3 .0 PK 04 MA ti S 40 6- 0- 00 IN 90 RE ve 30 30 20 20 S 5 N [address] JA MG 4 UG NE T TA CO BL MP ET AN Y IN C TR 00 02 04 2 30 30 HO 10 TA Ac IC 07 -2 -2 .0 PK 04 MA ti OR 46 6- 9- 00 IN 90 RE ve 12 20 20 S 4 N [address] JA 0 UG NE MG T CO TA MP BL AN ET Y IN C 00 03 04 2 30 30 HO 10 TA Ac 78 -2 -2 .0 PK 05 MA ti 15 9- 9- 00 IN 93 RE ve 18 20 20 S 6 N [address] JOHNSON 1 UG NE T CO MP AN Y IN C LO 00 04 04 2 30 30 HO 10 TA Ac SA 09 -2 -2 .0 PK 06 MA ti RT 37 3- 9- 00 IN 87 RE ve AN 36 20 20 S 3 N -H [address] 6 UG NE Z T 10 CO 0- MP 25 AN Y MG IN C TA B 00 04 04 2 60 30 HO 10 TA Ac 78 -2 -2 .0 PK 06 MA ti 11 3- 9- 00 IN 87 RE ve 22 20 20 S 4 N [address] JOHNSON 0 UG NE T CO MP AN Y IN C SI 65 04 04 2 30 30 HO 10 TA Ac MV 86 -2 -2 .0 PK 06 MA ti 20 3- 9- 00 IN 87 RE ve TA 05 20 20 S 5 N TI [address] JOHNSON N 9 UG NE 20 T CO MG MP AN TA Y BL IN ET C 00 10 04 4 15 30 HO 10 TA Ac 17 -2 -1 .0 PK 02 MA ti 24 0- 4- 00 IN 63 RE ve 28 20 20 S 5 N [address] JOHNSON 0 UG NE T CO MP AN Y IN C ME 68 02 04 2 30 30 HO 10 TA Ac TF 38 -1 -1 .0 PK 04 MA ti OR 20 2- 4- 00 IN 49 RE ve WV 02 20 20 S 6 N N [address] JOHNSON HC 0 UG NE L T 50 CO 0 MP MG AN Y TA IN BL C ET SI 65 01 04 2 30 30 HO 10 TA Ac MV 86 -2 -0 .0 PK 04 MA ti 20 9- 2- 00 IN 02 RE ve TA 05 20 20 S 0 N TI [address] JOHNSON N 9 UG NE 20 T CO MG MP AN TA Y BL IN ET C 00 01 03 2 60 30 HO 10 TA Ac 78 -2 -3 .0 PK 03 MA ti 11 5- 1- 00 IN 86 RE ve 22 20 20 S 0 N [address] JOHNSON 0 UG NE T CO MP AN Y IN C HY 00 01 03 [address] Ac ZA 00 -2 -2 .0 PK 03 ON ti AR 60 5- 9- 00 IN 86 E ve 74 20 20 S 1 DI [address] REGALADO 0- 1 UG E 25 D CO TA MP BL AN ET Y IN C 00 03 03 [address] Ac 78 -2 -2 .0 PK 05 ON ti 15 9- 9- 00 IN 93 E ve 18 20 20 S 6 DI [address] XI 1 UG E D CO MP AN Y IN C TR 00 02 03 2 30 30 HO 10 TA Ac IC 07 -2 -2 .0 PK 04 MA ti OR 46 6- 9- 00 IN 90 RE ve 12 20 20 S 4 N [address] JOHNSON 0 UG NE MG T CO TA MP BL AN ET Y IN C AC 64 02 03 2 30 30 HO 10 TA Ac TO 76 -2 -2 .0 PK 04 MA ti S 40 6- 9- 00 IN 90 RE ve 30 30 20 20 S 5 N [address] JOHNSON MG 4 UG NE T TA CO BL MP ET AN Y IN C 00 01 03 2 90 30 HO 10 TA Ac 78 -2 -1 .0 PK 05 MA ti 11 5- 9- 00 IN 67 RE ve 19 20 20 S 1 N [address] JOHNSON 0 UG NE T CO MP AN Y IN C 00 10 03 4 [address] Ac 17 -2 -1 .0 PK 02 ON ti 24 0- 5- 00 IN 63 E ve 28 20 20 S 5 DI [address] REGALADO 0 UG E D CO MP AN Y IN C ME 68 02 03 2 30 30 HO 10 TA Ac TF 38 -1 -1 .0 PK 04 MA ti OR 20 2- 5- 00 IN 49 RE ve WV 02 20 20 S 6 N N [address] JOHNSON HC 0 UG NE L T 50 CO 0 MP MG AN Y TA IN BL C ET 00 01 03 2 60 30 HO 10 TA Ac 78 -2 -0 .0 PK 03 MA ti 11 5- 1- 00 IN 86 RE ve 22 20 20 S 0 N [address] JOHNSON 0 UG NE T CO MP AN Y IN C SI 65 01 03 2 30 30 HO 10 TA Ac MV 86 -2 -0 .0 PK 04 MA ti 20 9- 1- 00 IN 02 RE ve TA 05 20 20 S 0 N TI [address] JOHNSON N 9 UG NE 20 T CO MG MP AN TA Y BL IN ET C Results Labs Lab Lab Date Result Refere Interp Status Commen Order Detail nces retati t Range on Whole blood hemoglobin and hematocrit pa (07-29-2017 15:40) Blood = 9.2 12.2-16 complet hemoglo 017 g/dL .2 ed bin 15:40 measure ment (mass/v olum Blood = 29.6 37.0-47 complet hematoc 017 % .0 ed rit 15:40 (volume fractio n) Leukocyte reduction of packed red blood (07-29-2017 12:45) Leukocy BLOOD complet te 017 UNIT ed reducti 12:45 RELEASE on of BLOOD packed UNIT red RELEASE blood L Blood product special preparation [Type] (07-29-2017 12:45) Blood BLOOD complet product 017 UNIT ed 12:45 RELEASE special prepara tion [Type] Leukocyte reduction of packed red blood (07-29-2017 10:50) Leukocy BLOOD complet te 017 UNIT ed reducti 10:50 RELEASE on of BLOOD packed UNIT red RELEASE blood L Blood product special preparation [Type] (07-29-2017 10:50) Blood BLOOD complet product 017 UNIT ed 10:50 RELEASE special prepara tion [Type] Whole blood hemoglobin and hematocrit pa (07-29-2017 09:15) Blood = 6.8 12.2-16 complet hemoglo 017 g/dL .2 ed bin 09:15 measure ment (mass/v olum Blood = 22.1 37.0-47 complet hematoc 017 % .0 ed rit 09:15 (volume fractio n) Crossmatch (07-29-2017 09:15) Immedia COMPAT complet te spin 017 COMPAT ed 09:15 L crossma tch Interpr COMPAT complet etation 017 COMPAT ed of 09:15 L major crossma tch resul Blood type and screen (07-29-2017 09:15) Blood A A L complet ABO 017 ed group 09:15 typing Rh NEGATIV complet blood 017 E ed group 09:15 NEGATIV typing E L Materna NEGATIV NEGATIV complet l 017 E E ed antibod 09:15 NEGATIV y E L screen Blood type & Crossmatch panel in Blood (07-29-2017 09:15) Major COMPAT complet crossma 017 ed tch 09:15 [interp retatio n] Major COMPAT complet crossma 017 ed tch 09:15 [interp retatio n] by Immedia te spin Blood type & Indirect antibody screen panel in Blood (07-29-2017 09:15) Blood NEGATIV NEGATIV complet group 017 E E ed antibod 09:15 y screen [Presen ce] in Serum or Plasma Rh NEGATIV complet [Type] 017 E ed in 09:15 Blood ABO A complet group 017 ed [Type] 09:15 in Blood Magnesium SerPl-mCnc (07-25-2017 04:19) Magnesi 1.6 1.9-2.4 complet um 017 mg/dL ed SerPl-m 04:19 Cnc Magnesium SerPl-mCnc (07-23-2017 06:33) Magnesi 1.7 1.9-2.4 complet um 017 mg/dL ed SerPl-m 06:33 Cnc Magnesium SerPl-mCnc (07-22-2017 06:31) Magnesi 1.5 1.9-2.4 complet um 017 mg/dL ed SerPl-m 06:31 [facility] PPP Process Laboratory Specialist-aCnc (07-21-2017 10:16) UF PPP 0.14 complet 017 IU/mL ed Process Laboratory Specialist-aC 10:16 nc Magnesium SerPl-mCnc (07-21-2017 03:32) Magnesi 1.6 1.9-2.4 complet um 017 mg/dL ed SerPl-m 03:32 [facility] UF PPP Process Laboratory Specialist-aCnc (07-21-2017 03:32) UF PPP 0.24 complet 017 IU/mL ed Process Laboratory Specialist-aC 03:32 nc Bacteria Ur Cult (07-20-2017 15:18) Bacteri [id number] complet a XXX 017 06 No ed Anaerob 15:18 growth e+Aerob (qualif e Cult ier value) SCT NG1 NO GROWTH DAY 1. L CC XXX NOTAP complet VC-aCnc 017 NOT ed 15:18 APPLICA BLE L SPECIME URNG complet N 017 SUERO ed CONTAIN 15:18 TOP ER COLLECT INFO: ION TUBE FOR URINE L UFH PPP Process Laboratory Specialist-aCnc (07-20-2017 03:53) UFH PPP 0.25 complet 017 IU/mL ed Process Laboratory Specialist-aC 03:53 nc UFH PPP Process Laboratory Specialist-aCnc (07-19-2017 06:13) UFH PPP 0.26 complet 017 IU/mL ed Process Laboratory Specialist-aC 06:13 nc UFH PPP Process Laboratory Specialist-aCnc (07-18-2017 02:01) UFH PPP 0.33 complet 017 IU/mL ed Process Laboratory Specialist-aC 02:01 nc UFH PPP Process Laboratory Specialist-aCnc (07-18-2017 02:01) UFH PPP DUP complet 017 DUPLICA ed Process Laboratory Specialist-aC 02:01 TE nc ORDER,C REDITED L IU/mL UFH PPP Process Laboratory Specialist-aCnc (07-17-2017 08:43) UFH PPP 0.38 complet 017 IU/mL ed Process Laboratory Specialist-aC 08:43 nc UFH PPP Process Laboratory Specialist-aCnc (07-17-2017 00:59) UFH PPP 0.32 complet 017 IU/mL ed Process Laboratory Specialist-aC 00:59 nc UFH PPP Process Laboratory Specialist-aCnc (07-16-2017 18:04) UFH PPP 0.19 complet 017 IU/mL ed Process Laboratory Specialist-aC 18:04 nc UFH PPP Process Laboratory Specialist-aCnc (07-16-2017 12:21) UFH PPP 0.30 complet 017 IU/mL ed Process Laboratory Specialist-aC 12:21 nc UFH PPP Process Laboratory Specialist-aCnc (07-16-2017 05:22) UFH PPP 0.21 complet 017 IU/mL ed Process Laboratory Specialist-aC 05:22 nc Magnesium SerPl-mCnc (07-15-2017 04:36) Magnesi 2.0 1.9-2.4 complet um 017 mg/dL ed SerPl-m 04:36 Cnc UFH PPP Process Laboratory Specialist-aCnc (07-15-2017 04:36) UFH PPP 10-26-2 0.34 complet 017 IU/mL ed Process Laboratory Specialist-aC 04:36 nc UFH PPP Process Laboratory Specialist-aCnc (07-14-2017 22:33) UFH PPP 0.29 complet 017 IU/mL ed Process Laboratory Specialist-aC 22:33 nc UFH PPP Process Laboratory Specialist-aCnc (07-14-2017 16:07) UFH PPP LE11 complet 017 <0.11 L ed Process Laboratory Specialist-aC 16:07 IU/mL nc NT-proBNP SerPl-mCnc (07-14-2017 09:39) NT-proB 8548 0-899 complet HORSE EXERCISER 017 pg/mL ed SerPl-m 09:39 Cnc Magnesium SerPl-mCnc (07-14-2017 09:39) Magnesi 2.1 1.9-2.4 complet um 017 mg/dL ed SerPl-m 09:39 Cnc Sodium SerPl-sCnc (07-14-2017 05:03) Sodium 147 136-145 complet SerPl-s 017 mmol/L ed Cnc 05:03 Sodium SerPl-sCnc (07-13-2017 17:01) Sodium 150 136-145 complet SerPl-s 017 mmol/L ed Cnc 17:01 Sodium SerPl-sCnc (07-13-2017 07:20) Sodium 149 136-145 complet SerPl-s 017 mmol/L ed Cnc 07:20 Sodium SerPl-sCnc (07-12-2017 15:26) Sodium 150 136-145 complet SerPl-s 017 mmol/L ed Cnc 15:26 Bacteria XXX Resp Cult (07-12-2017 15:22) Bacteri INSP complet a XXX 017 SMEAR ed Anaerob 15:22 CONTAIN e+Aerob S >=10 e Cult SQUAMOU S EPITHEL IAL CELLS PER LOW POWER FIELD, SUGGEST BRITT OF POOR QUALITY . CULTURE NOT PERFORM ED. PLEASE RECOLLE CT IF CLINICA LLY INDICAT ED. A CREDIT HAS BEEN ISSUED. L CC XXX NOTAP complet VC-aCnc 017 NOT ed 15:22 APPLICA BLE L SPECIME RCVD complet N 017 ORDER ed CONTAIN 15:22 PROCESS ER ED. L INFO: Bacteria Ur Cult (07-12-2017 15:08) Bacteri [id number] complet a XXX 017 07 ed Anaerob 15:08 Escheri e+Aerob millie e Cult coli (organi sm) SCT ECOL ESCHERI MILLIE COLI L CC XXX NOTAP complet VC-aCnc 017 NOT ed 15:08 APPLICA BLE L SPECIME URNG complet N 017 SUERO ed CONTAIN 15:08 TOP ER COLLECT INFO: ION TUBE FOR URINE L Bacteria XXX Anaerobe+Aerobe Cult (07-12-2017 15:08) Bacteri [id number] complet a XXX 017 06 No ed Anaerob 15:08 growth e+Aerob (qualif e Cult ier value) SCT NGB6 NO GROWTH DAY 5. L SPECIME [id number] complet N 017 03 ed CONTAIN 15:08 blood ER volume INFO: estimat ion (proced ure) SCT BVA BLOOD CULTURE VOLUME ACCEPTA BLE L SPECIME BCSET complet N 017 AEROBIC ed CONTAIN 15:08 AND ER ANAEROB INFO: IC BLOOD CULTURE BOTTLES L Bacteria Ur Cult (07-12-2017 15:08) Bacteri [id number] complet a XXX 017 8 Gram ed Anaerob 15:08 negativ e+Aerob e e Cult bacillu s (organi sm) SCT GNROD GRAM NEGATIV E EVY L CC XXX NOTAP complet VC-aCnc 017 NOT ed 15:08 APPLICA BLE L SPECIME URNG complet N 017 SUERO ed CONTAIN 15:08 TOP ER COLLECT INFO: ION TUBE FOR URINE L Bacteria XXX Anaerobe+Aerobe Cult (07-12-2017 15:08) Bacteri [id number] complet a XXX 017 06 No ed Anaerob 15:08 growth e+Aerob (qualif e Cult ier value) SCT NGB07 NO GROWTH IN <7 HOURS. L SPECIME [id number] complet N 017 03 ed CONTAIN 15:08 blood ER volume INFO: estimat ion (proced ure) SCT BVA BLOOD CULTURE VOLUME ACCEPTA BLE L SPECIME BCSET complet N 017 AEROBIC ed CONTAIN 15:08 AND ER ANAEROB INFO: IC BLOOD CULTURE BOTTLES L Phosphate SerPl-mCnc (07-12-2017 04:32) Phospha 3.2 2.5-4.5 complet te 017 mg/dL ed SerPl-m 04:32 Cnc Magnesium SerPl-mCnc (07-12-2017 04:32) Magnesi 2.2 1.9-2.4 complet um 017 mg/dL ed SerPl-m 04:32 Cnc Ca-I SerPl ISE-sCnc (07-12-2017 04:32) Ca-I 5.0 4.6-5.1 complet SerPl 017 mg/dL ed ISE-sCn 04:32 c Sodium SerPl-sCnc (07-11-2017 11:04) Sodium 151 136-145 complet SerPl-s 017 mmol/L ed Cnc 11:04 Sodium SerPl-sCnc (07-11-2017 04:51) Sodium 150 136-145 complet SerPl-s 017 mmol/L ed Cnc 04:51 Phosphate SerPl-mCnc (07-11-2017 02:50) Phospha 1.5 2.5-4.5 complet te 017 mg/dL ed SerPl-m 02:50 Cnc Magnesium SerPl-mCnc (07-11-2017 02:50) Magnesi 2.2 1.9-2.4 complet um 017 mg/dL ed SerPl-m 02:50 Cnc Ca-I SerPl ISE-sCnc (07-11-2017 02:50) Ca-I 5.0 4.6-5.1 complet SerPl 017 mg/dL ed ISE-sCn 02:50 c Sodium SerPl-sCnc (07-10-2017 22:48) Sodium 153 136-145 complet SerPl-s 017 mmol/L ed Cnc 22:48 Sodium SerPl-sCnc (07-10-2017 17:17) Sodium 155 136-145 complet SerPl-s 017 mmol/L ed Cnc 17:17 Sodium SerPl-sCnc (07-10-2017 11:15) Sodium 155 136-145 complet SerPl-s 017 mmol/L ed Cnc 11:15 Sodium SerPl-sCnc (07-10-2017 02:48) Sodium 155 136-145 complet SerPl-s 017 mmol/L ed Cnc 02:48 Ca-I SerPl ISE-sCnc (07-10-2017 02:48) Ca-I 4.8 4.6-5.1 complet SerPl 017 mg/dL ed ISE-sCn 02:48 c Phosphate SerPl-mCnc (07-10-2017 02:48) Phospha 2.0 2.5-4.5 complet te 017 mg/dL ed SerPl-m 02:48 Cnc Magnesium SerPl-mCnc (07-10-2017 02:48) Magnesi 2.3 1.9-2.4 complet um 017 mg/dL ed SerPl-m 02:48 Cnc Sodium SerPl-sCnc (07-09-2017 21:00) Sodium 152 136-145 complet SerPl-s 017 mmol/L ed Cnc 21:00 Phosphate SerPl-mCnc (07-09-2017 15:37) Phospha 1.3 2.5-4.5 complet te 017 mg/dL ed SerPl-m 15:37 Cnc Magnesium SerPl-mCnc (07-09-2017 15:37) Magnesi 1.9 1.9-2.4 complet um 017 mg/dL ed SerPl-m 15:37 Cnc Potassium SerPl-sCnc (07-09-2017 15:37) Potassi 4.0 3.7-4.8 complet um 017 mmol/L ed SerPl-s 15:37 Cnc Sodium SerPl-sCnc (07-09-2017 14:44) Sodium 151 136-145 complet SerPl-s 017 mmol/L ed Cnc 14:44 Sodium SerPl-sCnc (07-09-2017 03:30) Sodium 145 136-145 complet SerPl-s 017 mmol/L ed Cnc 03:30 Ca-I SerPl ISE-sCnc (07-09-2017 02:10) Ca-I 4.8 4.6-5.1 complet SerPl 017 mg/dL ed ISE-sCn 02:10 c Phosphate SerPl-mCnc (07-09-2017 02:10) Phospha 1.1 2.5-4.5 complet te 017 mg/dL ed SerPl-m 02:10 Cnc Magnesium SerPl-mCnc (07-09-2017 02:10) Magnesi 1.9 1.9-2.4 complet um 017 mg/dL ed SerPl-m 02:10 Cnc Sodium SerPl-sCnc (07-08-2017 20:59) Sodium 144 136-145 complet SerPl-s 017 mmol/L ed Cnc 20:59 Sodium SerPl-sCnc (07-08-2017 16:06) Sodium 142 136-145 complet SerPl-s 017 mmol/L ed Cnc 16:06 Sodium SerPl-sCnc (07-08-2017 08:51) Sodium 143 136-145 complet SerPl-s 017 mmol/L ed Cnc 08:51 Hgb A1c MFr Bld (07-08-2017 04:00) Hgb A1c 5.7 % 4.7-6.0 complet MFr 017 ed Bld 04:00 TSH SerPl DL<=0.005 mIU/L-aCnc (07-08-2017 04:00) TSH 0.51 0.4-4.2 complet SerPl 017 uIU/mL ed DL<=0.0 04:00 05 mIU/L-a Cnc Phosphate SerPl-mCnc (07-08-2017 02:00) Phospha 2.3 2.5-4.5 complet te 017 mg/dL ed SerPl-m 02:00 Cnc Magnesium SerPl-mCnc (07-08-2017 02:00) Magnesi 2.2 1.9-2.4 complet um 017 mg/dL ed SerPl-m 02:00 Cnc MRSA DNA XXX Ql PCR (07-07-2017 22:44) MRSA [id number] NEGATIV complet PCR 017 05 E for ed RESULT 22:44 analyte MRSA not DNA by detecte PCR, d SCT MRSA NOMRSA coloniz NEGATIV ation E for unlikel MRSA y. DNA by PCR, MRSA coloniz ation unlikel y. L MOLECUL Nares complet AR SPEC 017 (NARES) ed 22:44 DESCRIP TION MRSA BY [id number] complet PCR 017 05 ed 22:44 analyte not detecte d SCT NOMRSA NEGATIV E for MRSA DNA by PCR, MRSA coloniz ation unlikel y. L MDRO Wnd (07-07-2017 22:44) Bacteri [id number] complet a XXX 017 00 not ed Anaerob 22:44 isolate e+Aerob d e Cult (qualif ier value) SCT NMDR NO MULTI DRUG RESISTA NT ORGANIS MS ISOLATE D L CC XXX NOTAP complet VC-aCnc 017 NOT ed 22:44 APPLICA BLE L SPECIME RCVD complet N 017 ORDER ed CONTAIN 22:44 PROCESS ER ED. L INFO: Phosphate SerPl-mCnc (07-07-2017 05:59) Phospha 3.0 2.5-4.5 complet te 017 mg/dL ed SerPl-m 05:59 Cnc Magnesium SerPl-mCnc (07-07-2017 05:59) Magnesi 1.8 1.9-2.4 complet um 017 mg/dL ed SerPl-m 05:59 Cnc Ca-I SerPl ISE-sCnc (07-07-2017 05:59) Ca-I 4.4 4.6-5.1 complet SerPl 017 mg/dL ed ISE-sCn 05:59 c Salicylates SerPl-sCnc (07-06-2017 23:53) Salicyl < 0.3 0-25.0 complet ates 017 mg/dL ed SerPl-s 23:53 Cnc Acetamin SerPl-mCnc (07-06-2017 23:53) Acetami < 15.0 10-30 complet n 017 ug/mL ed SerPl-m 23:53 Cnc Lactate Bld-sCnc (07-06-2017 23:53) Lactate 1.3 complet 017 mmol/L ed Bld-sCn 23:53 c TSH SerPl DL<=0.005 mIU/L-aCnc (07-06-2017 23:53) TSH 2.14 0.4-4.2 complet SerPl 017 uIU/mL ed DL<=0.0 23:53 05 mIU/L-a Cnc NT-proBNP SerPl-[facility] (07-06-2017 23:53) NT-proB 1925 0-899 complet HORSE EXERCISER 017 pg/mL ed SerPl-m 23:53 Cnc
--- OUTSIDE RECORDS SUMMARY | 2017-08-21 14:49 | External Medical Summary Rpt | CCD ---
Author Author , BHAVANI BECKHAM Address Unknown Phone [email or web address] Care Team Providers Care Transmission Repairer Name Role Phone [facility] Unavailable Unavailable INC, [facility] [employer] [facility] [facility], Unavailable Unavailable [facility] Purpose Continuity of Care Document [...] 71 11 11 FA XI N 0 OR E [address] UG TA BL ET ME 50 08 10 2 60 30 SO 38 TA Ac TO 74 -1 -2 .0 PE 17 MA ti NM 20 RS 80 RE ve OL 10 20 20 N OL 91 11 11 FA JA 0 OR NE TA LY T RT RA DR TE UG 10 0 MG TA B LE 00 08 10 2 30 30 SO 38 TA Ac VO 37 -1 -2 .0 PE 17 MA ti TH 81 RS 82 RE ve YR 80 20 20 N OX 70 11 11 FA JA IN 1 OR NE E LY T 88 DR MC UG G TA BL ET LO 60 08 10 2 [address] Ac SA 50 -1 -0 .0 PE 17 ON ti RT 52 RS 51 E ve AN 91 20 20 DI -H 70 [address] 9 OR E Z LY D 10 0- DR 25 UG MG TA B TR 00 08 10 2 30 30 SO 38 TA Ac IC 07 -1 -0 .0 PE 17 MA ti OR 46 RS 81 RE ve 12 20 20 N 48 29 11 11 FA JA 0 OR NE MG LY T TA DR BL UG ET 64 08 10 2 60 30 SO 38 TA Ac 72 -1 -0 .0 PE 17 MA ti 00 RS 83 RE ve 12 20 20 N 51 11 11 FA JA 0 OR NE LY T DR UG AC 64 08 10 2 30 30 SO 38 TA Ac TO 76 -1 -0 .0 PE 17 MA ti S 40 RS 84 RE ve 30 30 20 20 N 11 11 11 FA JA MG 4 OR NE LY T TA BL DR ET UG 00 08 10 2 30 30 SO 38 TA Ac 17 -1 -0 .0 PE 17 MA ti 24 RS 85 RE ve 28 20 20 N 66 11 11 FA JA 0 OR NE LY T DR UG ME 68 08 10 2 30 30 SO 38 TA Ac TF 38 -1 -0 .0 PE 17 MA ti OR 20 RS 86 RE ve OR 02 20 20 N N 81 11 11 FA JA HC 0 OR NE L LY T [address] MG UG TA BL ET LE 00 08 09 2 30 30 SO 38 TA Ac VO 37 -1 -2 .0 PE 17 MA ti TH 81 RS 82 RE ve YR 80 20 20 N OX 70 11 11 FA JA IN 1 OR NE E LY T 88 DR MC UG G TA BL ET SI 68 08 09 2 [address] Ac MV 38 -1 -2 .0 PE 17 ON ti 20 9- 3- 00 RS 52 E ve TA 06 20 20 DI TI 71 11 11 FA XI N 0 OR E [address] UG TA BL ET ME 50 08 09 2 60 30 SO 38 TA Ac TO 74 -1 -2 .0 PE 17 MA ti NM 20 9- 3 00 RS 80 RE ve OL 10 20 20 N OL 91 11 11 FA JA 0 OR NE TA LY T RT RA DR TE UG 10 0 MG TA B PE 00 09 09 0 30 7 SO 38 AL Ac NI 78 -1 -1 .0 PE 40 LE ti CI 11 4- 4- 00 RS 89 N ve LL 65 20 20 BR IN 51 11 11 FA AN 0 OR DO VK LY N I 50 DR 0 UG MG TA BL ET 00 08 09 2 30 30 SO 38 TA Ac 17 -1 -0 .0 PE 17 MA ti 24 9 RS 85 RE ve 28 20 20 N 66 11 11 FA JA 0 OR NE LY T DR UG 64 07 09 2 [address] Ac 72 -0 -0 .0 PE 81 ON ti 00 8 6 RS 77 E ve 12 20 20 DI 51 11 11 FA XI 1 OR E LY D DR UG AC 64 08 09 1 [address] Ac TO 76 -0 -0 .0 PE 04 ON ti S 40 5- 6- 00 RS 72 E ve 30 30 20 20 DI 11 11 11 FA XI MG 4 OR E LY D TA BL DR ET UG TR 00 08 09 1 [address] Ac IC 07 -0 -0 .0 PE 04 ON ti OR 46 5- 6- 00 RS 73 E ve 12 20 20 DI 48 29 11 11 FA XI 0 OR E MG LY D TA DR BL UG ET LO 13 08 09 2 [address] Ac SA 66 -1 -0 .0 PE 17 ON ti RT 80 9- 6- 00 RS 51 E ve AN 11 20 20 DI -H 89 [address] 0 OR E Z LY D 10 0- DR 25 UG MG TA B ME 68 08 09 2 30 30 SO 38 TA Ac TF 38 -1 -0 .0 PE 17 MA ti OR 20 9- 6- 00 RS 86 RE ve OR 02 20 20 N N 81 11 11 FA JA HC 0 OR NE L LY T [address] MG UG TA BL ET LE 00 07 08 1 [address] Ac VO 37 -2 -2 .0 PE 96 ON ti TH 81 6- 4- 00 RS 11 E ve YR 80 20 20 DI OX 70 11 11 FA XI IN 1 OR E E LY D 88 DR MC UG G TA BL ET ME 50 07 08 1 [address] Ac TO 74 -2 -2 .0 PE 96 ON ti NM 20 6- 4 00 RS 12 E ve OL 10 20 20 DI OL 91 11 11 FA XI 0 OR E TA LY D RT RA DR TE UG 10 0 MG TA B SI 68 08 08 2 [address] Ac MV 38 -1 -1 .0 PE 17 ON ti 20 9 9 RS 52 E ve TA 06 20 20 DI TI 71 11 11 FA XI N 0 OR E [address] UG TA BL ET 00 07 08 1 [address] Ac 17 -0 -1 .0 PE 81 ON ti 24 8- 1 00 RS 76 E ve 28 20 20 DI 66 11 11 FA XI 0 OR E LY D DR UG LO 13 07 08 1 [address] Ac SA 66 -0 -0 .0 PE 81 ON ti RT 80 8- 5- 00 RS 74 E ve AN 11 20 20 DI -H 89 [address] 0 OR E Z LY D 10 0- DR 25 UG MG TA B 64 07 08 2 [address] Ac 72 -0 -0 .0 PE 81 ON ti 00 8- RS 77 E ve 12 20 20 DI 51 11 11 FA XI 1 OR E LY D DR UG AC 64 08 08 1 [address] Ac TO 76 -0 -0 .0 PE 04 ON ti S 40 5- 5- 00 RS 72 E ve 30 30 20 20 DI 11 11 11 FA XI MG 4 OR E LY D TA BL DR ET UG TR 00 08 08 1 [address] Ac IC 07 -0 -0 .0 PE 04 ON ti OR 46 5- 5- 00 RS 73 E ve 12 20 20 DI 48 29 11 11 FA XI 0 OR E MG LY D TA DR BL UG ET LE 00 07 07 1 [address] Ac VO 37 -2 -2 .0 PE 96 ON ti TH 81 6 00 RS 11 E ve YR 80 20 20 DI OX 70 11 11 FA XI IN 1 OR E E LY D 88 DR MC UG G TA BL ET ME 63 07 07 1 [address] Ac TO 30 -2 -2 .0 PE 96 ON ti NM 40 6- 6 00 RS 12 E ve OL 58 20 20 DI OL 11 11 11 FA XI 0 OR E TA LY D RT RA DR TE UG 10 0 MG TA B SI 68 07 07 0 [address] Ac MV 38 -1 -2 .0 PE 85 ON ti 20 3- 0- 00 RS 08 E ve TA 06 20 20 DI TI 71 11 11 FA XI N 0 OR E [address] UG TA BL ET TR 00 07 07 0 [address] Ac IC 07 -0 -0 .0 PE 81 ON ti OR 46 RS 72 E ve 12 20 20 DI 48 29 11 11 FA XI 0 OR E MG LY D TA DR BL UG ET ME 68 07 07 0 [address] Ac TF 38 -0 -0 .0 PE 81 ON ti OR 20 RS 73 E ve OR 02 20 20 DI N 81 11 11 FA XI HC 0 OR E L LY D [address] MG UG TA BL ET LO 60 07 07 1 [address] Ac SA 50 -0 -0 .0 PE 81 ON ti RT 52 8 RS 74 E ve AN 91 20 20 DI -H 70 [address] 3 OR E Z LY D 10 0- DR 25 UG MG TA B 64 07 07 2 [address] Ac 72 -0 -0 .0 PE 81 ON ti 00 RS 77 E ve 12 20 20 DI 51 11 11 FA XI 1 OR E LY D DR UG AC 64 07 07 0 [address] Ac TO 76 -0 -0 .0 PE 81 ON ti S 40 RS 78 E ve 30 30 20 20 DI 11 11 11 FA XI MG 4 OR E LY D TA BL DR ET UG 00 07 07 1 [address] Ac 17 -0 -0 .0 PE 81 ON ti 24 RS 76 E ve 28 20 20 DI 66 11 11 FA XI 0 OR E LY D DR UG 00 02 [...] 8- 7- 00 IN 97 E ve OR 02 20 20 S 8 DI N [...] 3- 9- 00 IN 18 RE ve OR 02 20 20 S 4 N N [...] 3- 1- 00 IN 18 RE ve OR 02 20 20 S 4 N N [...] 3- 8- 00 IN 18 RE ve OR 02 20 20 S 4 N N [...] 9- 9- 00 IN 46 RE ve OR 02 20 20 S 3 N N [...] 2- 0- 00 IN 82 RE ve OR 02 20 20 S 8 N N [...] 2- 9- 00 IN 82 RE ve OR 02 20 20 S 8 N N [...] 2- 2- 00 IN 82 RE ve OR 02 20 20 S 8 N N [...] 3- 2- 00 IN 18 E ve OR 02 20 20 S 2 DI N [...] 3- 3- 00 IN 18 E ve OR 02 20 20 S 2 DI N [...] 3- 3- 00 IN 18 E ve OR 02 20 20 S 2 DI N [...] 4- 8- 00 IN 39 RE ve OR 02 20 20 S 0 N N [...] 4- 4- 00 IN 39 RE ve OR 02 20 20 S 0 N N [...] 2- 4- 00 IN 49 RE ve OR 02 20 20 S 6 N N [...] 2- 5- 00 IN 49 RE ve OR 02 20 20 S 6 N N [...] complet um 017 mg/dL ed SerPl-m 06:31 [facility] PPP National Sales-aCnc (07-21-2017 10:16) UF PPP 0.14 complet 017 IU/mL ed National Sales-aC 10:16 nc Magnesium SerPl-mCnc (07-21-2017 03:32) Magnesi 1.6 1.9-2.4 complet um 017 mg/dL ed SerPl-m 03:32 [facility] UF PPP National Sales-aCnc (07-21-2017 03:32) UF PPP 0.24 complet 017 IU/mL ed National Sales-aC 03:32 nc Bacteria Ur Cult (07-20-2017 15:18) Bacteri [id number] complet a XXX 017 06 No ed Anaerob 15:18 growth e+Aerob (qualif e Cult ier value) SCT NG1 NO GROWTH DAY 1. L CC XXX NOTAP complet VC-aCnc 017 NOT ed 15:18 APPLICA BLE L SPECIME URNG complet N 017 SUERO ed CONTAIN 15:18 TOP ER COLLECT INFO: ION TUBE FOR URINE L UFH PPP National Sales-aCnc (07-20-2017 03:53) UFH PPP 0.25 complet 017 IU/mL ed National Sales-aC 03:53 nc UFH PPP National Sales-aCnc (07-19-2017 06:13) UFH PPP 0.26 complet 017 IU/mL ed National Sales-aC 06:13 nc UFH PPP National Sales-aCnc (07-18-2017 02:01) UFH PPP 0.33 complet 017 IU/mL ed National Sales-aC 02:01 nc UFH PPP National Sales-aCnc (07-18-2017 02:01) UFH PPP DUP complet 017 DUPLICA ed National Sales-aC 02:01 TE nc ORDER,C REDITED L IU/mL UFH PPP National Sales-aCnc (07-17-2017 08:43) UFH PPP 0.38 complet 017 IU/mL ed National Sales-aC 08:43 nc UFH PPP National Sales-aCnc (07-17-2017 00:59) UFH PPP 0.32 complet 017 IU/mL ed National Sales-aC 00:59 nc UFH PPP National Sales-aCnc (07-16-2017 18:04) UFH PPP 0.19 complet 017 IU/mL ed National Sales-aC 18:04 nc UFH PPP National Sales-aCnc (07-16-2017 12:21) UFH PPP 0.30 complet 017 IU/mL ed National Sales-aC 12:21 nc UFH PPP National Sales-aCnc (07-16-2017 05:22) UFH PPP 0.21 complet 017 IU/mL ed National Sales-aC 05:22 nc Magnesium SerPl-mCnc (07-15-2017 04:36) Magnesi 2.0 1.9-2.4 complet um 017 mg/dL ed SerPl-m 04:36 Cnc UFH PPP National Sales-aCnc (07-15-2017 04:36) UFH PPP 10-26-2 0.34 complet 017 IU/mL ed National Sales-aC 04:36 nc UFH PPP National Sales-aCnc (07-14-2017 22:33) UFH PPP 0.29 complet 017 IU/mL ed National Sales-aC 22:33 nc UFH PPP National Sales-aCnc (07-14-2017 16:07) UFH PPP LE11 complet 017 <0.11 L ed National Sales-aC 16:07 IU/mL nc NT-proBNP SerPl-mCnc (07-14-2017 09:39) NT-proB 8548 0-899 complet DRUG PURCHASER 017 pg/mL ed SerPl-m 09:39 Cnc Magnesium [...] INFO: Bacteria Ur Cult (07-12-2017 15:08) Bacteri [id number] complet a XXX 017 07 ed Anaerob 15:08 Escheri e+Aerob millie e Cult coli (organi sm) SCT ECOL ESCHERI MILLIE COLI L CC XXX NOTAP complet VC-aCnc 017 NOT ed 15:08 APPLICA BLE L SPECIME URNG complet N 017 SUERO ed CONTAIN 15:08 TOP ER COLLECT INFO: ION TUBE FOR URINE L Bacteria XXX Anaerobe+Aerobe Cult (07-12-2017 15:08) Bacteri [id number] complet a XXX 017 06 No ed Anaerob 15:08 growth e+Aerob (qualif e Cult ier value) SCT NGB6 NO GROWTH DAY 5. L SPECIME [id number] complet N 017 03 ed CONTAIN 15:08 blood ER volume INFO: estimat ion (proced ure) SCT BVA BLOOD CULTURE VOLUME ACCEPTA BLE L SPECIME BCSET complet N 017 AEROBIC ed CONTAIN 15:08 AND ER ANAEROB INFO: IC BLOOD CULTURE BOTTLES L Bacteria Ur Cult (07-12-2017 15:08) Bacteri [id number] complet a XXX 017 8 Gram ed Anaerob 15:08 negativ e+Aerob e e Cult bacillu s (organi sm) SCT GNROD GRAM NEGATIV E EVY L CC XXX NOTAP complet VC-aCnc 017 NOT ed 15:08 APPLICA BLE L SPECIME URNG complet N 017 SUERO ed CONTAIN 15:08 TOP ER COLLECT INFO: ION TUBE FOR URINE L Bacteria XXX Anaerobe+Aerobe Cult (07-12-2017 15:08) Bacteri [id number] complet a XXX 017 06 No ed Anaerob 15:08 growth e+Aerob (qualif e Cult ier value) SCT NGB07 NO GROWTH IN <7 HOURS. L SPECIME [id number] complet N 017 03 ed CONTAIN 15:08 [...] DNA XXX Ql PCR (07-07-2017 22:44) MRSA [id number] NEGATIV complet PCR 017 05 E for ed RESULT 22:44 analyte MRSA not DNA by detecte PCR, d SCT MRSA NOMRSA coloniz NEGATIV ation E for unlikel MRSA y. DNA by PCR, MRSA coloniz ation unlikel y. L MOLECUL Nares complet AR SPEC 017 (NARES) ed 22:44 DESCRIP TION MRSA BY [id number] complet PCR 017 05 ed 22:44 analyte not detecte d SCT NOMRSA NEGATIV E for MRSA DNA by PCR, MRSA coloniz ation unlikel y. L MDRO Wnd (07-07-2017 22:44) Bacteri [id number] complet a XXX 017 00 not ed [...] ed DL<=0.0 23:53 05 mIU/L-a Cnc NT-proBNP SerPl-[facility] (07-06-2017 23:53) NT-proB 1925 0-899 complet DRUG PURCHASER 017 pg/mL ed SerPl-m 23:53 Cnc
--- NOTE | 2017-08-21 15:00 | Emergency Room Report ---
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 PT STATES ONLY PAIN SHE HAS IS IN LEFT FOOT. 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 N Clinical Suspician of Infection? N Mental Status: 1 - Regular (Normal Baseline) Sepsis Risk:Low Sepsis Risk Have you (or family members/close friends) recently traveled outside the [place]? N If Yes, where/when: Have you had exposure to infectious disease within the past month? TB? Other? Specify: Comment The patient arrives by ambulance from a long term. She reportedly fell out of bed. prison notes state "rule out LEFT hip fracture". The patient tells me she does not hurt anywhere. She apparently told nursing staff here that she has pain in her LEFT foot. The patient denies any head or neck injury. No abdominal pain. ALLERGIES Coded Allergies: No Known Allergies (08/21/17) Home Medications Reported Medications METFORMIN HCL (Metformin 500MG) 1,000 MG PO QAM PIOGLITAZONE HCL (Actos 30MG) 30 MG PO DAILY ASPIRIN (Aspirin) 81 MG PO DAILY Atorvastatin Calcium (Atorvastatin) 40 MG PO QHS HYDROCHLOROTHIAZIDE (Hydrochlorothiazide) 25 MG PO DAILY Metformin HCL (Metformin) 500 MG PO QPM MULTIVITAMIN (Daily Multiple Vitamin) 1 TAB PO DAILY AMLODIPINE BESYLATE (Norvasc) 10 MG PO DAILY Warfarin Sodium (Warfarin 4MG) 4 MG PO DAILY Docusate Sodium 100 MG PO BID L. ACIDOPHILUS/L.BULGARICUS (Floranex Tablet) 1 TAB PO BID Enoxaparin Sodium (Lovenox) 0.87 ML SC BID Gabapentin (Gabapentin 300MG) 300 MG PO TID Acetaminophen (Tylenol XS 500MG) 1,000 MG PO Q6HP PRN PAIN/FEVER Levothyroxine Sodium (Levothyroxine 0.088MG) 0.088 MG PO DAILY History Medical History General Hypertension? Yes Hyperlipidemia? Yes Anemia? Yes CVA? Yes Diabetes? Yes Insulin Dependent: Yes Insulin Pump: No Home FSBS? Yes Immunization Hx Ped.Immunizations UTD Yes DT/Tetanus 5-10 Years Ago Surgical Hx Previous Surgery?N Social History Smoking Hx Smoker: Never Smoker Tobacco: No Type N/A Are you/the child exposed to second-hand smoke: No Review of Systems All Other Systems Reviewed and Negative Respiratory denies shortness of breath Cardiovascular denies chest pain Gastrointestinal denies abdominal pain, denies vomiting Musculoskeletal denies back pain, denies joint pain, denies neck pain Psychiatric/Neurological denies headache Physical Exam Vital Signs Vital Signs Date Time Temp Pulse Resp B/P Pulse O2 O2 Flow FiO2 Ox Delivery Rate 08/21 1618 97.0 88 18 132/55 95 08/21 1439 97.0 88 18 132/55 95 General Appearance no apparent distress Eye Exam - bilateral eye normal exam, bilateral eye PERRL, bilateral eye EOMI Ear, Nose, Throat hearing grossly normal, normal ENT inspection Neck normal inspection, non-tender, supple, full range of motion Respiratory Status Yes: trachea midline, chest symmetrical, non tender chest. No: respiratory distress. Lung Sounds bilateral: normal breath sounds, lungs clear. Cardiovascular normal exam, regular rate/rhythm, no peripheral edema, no gallop, no JVD, no murmur, no rub, normal peripheral pulses Peripheral Pulses Pulses normal Yes Gastrointestinal normal bowel sounds, non tender, soft, no organomegaly, ecchymosis of the abdominal wall, old appearing, appears to be from subcutaneous injections. Extremities non-tender, normal range of motion, normal inspection, hips nontender. Full range of motion without any apparent pain. No shortening or malrotation. I palpated all 4 extremities, no tenderness elicited Neurologic alert Mental status normal mood/affect Skin intact, normal color, warm/dry Medical Decision Making LABS/Meds/Orders Pt receiving controlled substance in ED? No Results/Orders Orders Procedure Date/time Status HIP LT 2-3V W/PELVIS IF PERFOR 08/21 1438 Active FOOT-LT-3 VIEWS 08/21 1438 Active CHEST-PORTABLE 08/21 1438 Active XRAY/CT/US XRAY/CT/US XRAY foot, hip Comment Hip X-ray interpreted by Duke Liu M.D.: old appearing ossicle at LEFT greater trochanter, no fracture or dislocation seen Chest x-ray interpreted by Duke Liu M.D. No infiltrate, pneumothorax, pleural effusion, or wide mediastinum. Cardiomegaly. Departure Departure Disposition DC Home or Self Care(routine) Clinical Impression Primary Impression: Fall from bed Qualifiers: Encounter type: initial encounter Qualified Code: W06.XXXA - Fall from bed, initial encounter Condition STABLE Additional Instructions Return to the emergency department if any concerns of pain or any change in condition. ED Critical Care [place] [id number]
--- OUTSIDE RECORDS SUMMARY | 2017-08-21 15:00 | External Medical Summary Rpt | CCD ---
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 Role Phone [facility], Unavailable Unavailable [facility], Unavailable Unavailable [facility] Un[facility] Unavailable INC, [facility] Un[facility], [facility], Unavailable Unavailable [facility], Unavailable Unavailable [facility] Unavailable Unavailable INC, [facility] Unavailable Unavailable [facility] Un[facility], [facility] Unavailable Unavailable [facility]INGS, [facility], Unavailable Unavailable JA[facility] [place] [facility], 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 [facility] 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 Unavailable [facility], 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 [facility], Unavailable Unavailable [facility], Unavailable Unavailable [facility] LINDA MAN[facility], Unavailable Unavailable LINDA MANE Purpose Continuity of Care Document - 12-12-2007 through 2016 Problems Code Diagnosis DOS Provider Status R918 OTHER 07-07-2017 [facility] AB[facility]AL [facility] FINDING OF LUNG FIELD E039 HYPOTHYROID 05-28-2017 [facility] UNSPECIFIED 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 THY E119 TYPE 2 05-28-2017 [facility] MELLITUS WITHOUT COMPLICATIO NS E785 HYPERLIPIDE 05-28-2017 [facility] UNSPECIFIED I10 ESSENTIAL 05-28-2017 [facility] HYPERTENSIO N M170 BILATERAL 03-18-2017 [facility]IMARY [facility]YS[facility]ANS OSTEOARTHRI GROUP TIS OF KNEE N87509 OTH SPEC 03-18-2017 [facility] ENTHESOPATH PHYSICIANS IES UNS LOW GROUP LIMB EXCLUD FOOT M1711 UNILATERAL 02-25-2017 [facility] TIS RIGHT KNEE M1712 UNILATERAL 02-25-2017 [facility] TIS LEFT KNEE [id number] PAIN IN 02-25-2017 [facility] [id number] PAIN IN 02-25-2017 [facility] LEFT [facility]NEE [facility] N390 URINARY 02-25-2017 [facility] INFECTION SITE NOT SPECIFIED [id number] PAIN IN 12-29-2016 [facility] E118 TYPE 2 12-28-2016 [facility] MELLITUS W/UNS COMPLICATIO NS [id number] UNSPECIFIED 12-28-2016 [facility] INITIAL ENCOUNTER E1165 TYPE 2 11-24-2016 [facility] DI[facility] MELLITUS HOLDINGS WITH HYPERGLYCEM IA U03248 PRIMARY 11-24-2016 [facility] OSTEOARTHRI MEDICAL TIS LEFT IMAGING ASS ANKLE AND FOOT E26259 PAIN IN 11-24-2016 [facility] LEFT ANKLE [facility] M722 PLANTAR 11-24-2016 [facility] FIBROMATOSI S M7731 CALCANEAL 11-24-2016 [facility] RIGHT MEDICAL FOOT IMAGING ASS M7732 CALCANEAL 11-24-2016 [facility] LEFT MEDICAL FOOT IMAGING ASS S57184 PAIN IN 11-24-2016 [facility] RIGHT FOOT [facility]ICAL [facility] [id number] PAIN IN 11-24-2016 [facility] LEFT FOOT [facility]ICAL [facility] Z760 ENCOUNTER 11-24-2016 [facility] FOR ISSUE CLINIC OF REPEAT PRESCRIPTIO N B888 OTHER 09-01-2016 [facility] SPECIFIED [facility] INFESTATION S E538 DEFICIENCY 02-28-2016 [facility] OF OTHER [facility] SPECIFIED B HOLDINGS GROUP VITAMINS I739 PERIPHERAL 02-28-2016 [facility] DISEASE UNSPECIFIED A499 BACTERIAL 06-27-2015 [facility] UNSPECIFIED [facility]ATION I129 HYPERTENSIV 06-27-2015 [facility] E CKD SERV W/STAGE 1-4 FOUNDATION CKD OR UNS CKD N183 CHRONIC 06-27-2015 [facility] DISEASE [facility] STAGE 3 MODERATE N3021 OTHER 06-27-2015 [facility] WITH HEMATURIA R809 PROTEINURIA 06-27-2015 [facility] UNSPECIFIED [facility]ATION 2689 UNSPECIFIED 06-18-2015 [facility] 7910 PROTEINURIA 06-18-2015 [facility] 39629 OTHER 06-17-2015 [place] SPECIFIED MEDICAL DISORDER OF IMAGING ASS KIDNEY AND URETER 18806 MICROSCOPIC 06-17-2015 [facility] HEMAT[facility]IA [facility] 41187 URINARY 06-17-2015 [facility] FREQUENCY [facility] 62123 HEMATURIA 06-06-2015 [facility] 2449 UNSPECIFIED 05-22-2015 [facility] HYPOTHYROID HOLDINGS ISM 41497 DIAB W/O 05-22-2015 [facility] COMP TYPE [facility] II/UNS NOT HOLDINGS STATED UNCNTRL 85558 DIAB 05-22-2015 [facility] W/NEURO [facility] MANIFESTS HOLDINGS TYPE II/UNS NOT UNCNTRL 2724 OTHER AND 05-22-2015 [facility] UNSPECIFIED [facility] HOLDINGS HYPERLIPIDE SH[place] 4019 UNSPECIFIED 05-22-2015 [facility] ESSENTIAL [facility] HYPERTENSIO HOLDINGS N 17073 DIAB 02-19-2015 [facility] W/UNSPEC [facility] COMP TYPE HOLDINGS II/UNSPEC TYPE UNCNTRL 75204 OSTEOARTHRO 02-19-2015 [facility] S UNSPEC [facility] WHETHER HOLDINGS GEN/LOC UNSPEC SITE V1581 PERS HX 02-19-2015 [facility] NONCOMPLIAN [facility] CE W/MED TX HOLDINGS PRS HAZARDS HLTH 11126 OBESITY, 08-10-2014 [facility] UNSPECIFIED [facility] HOLDINGS 40538 OSTEOARTHRO 02-09-2013 [facility] SIS UNSPEC PHYSICIANS WHETHER GROUP GEN/LOC LOWER LEG 7177 CHONDROMALA 02-09-2013 [facility] ADALID OF PHYSICIANS [place] GROUP 93866 PAIN IN 01-20-2013 [facility] [place] [facility], JOINT, 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 [facility] 2722 MIXED 08-08-2012 [facility] HYPERLIPIDE [facility] SHAWNA 4011 ESSENTIAL 08-08-2012 [facility] HYPERTENSIO [facility] N, BENIGN 01235 OTHER 06-21-2012 [place] [facility] DISTORTIONS AND ENTOPTIC PHENOMENA 4160 PRIMARY 07-11-2010 [facility] HYPERTENSIO N 81592 THYROTOX 10-14-2009 [facility] W/O CLINIC [facility] GOITER/OTH CAUSE W/O CRISIS V5869 LONG-TERM 01-03-2008 [facility] USE OF OTHER MEDICATIONS Medications Na ND Rx Da Fi Fi Am Da Di Ph RX Ph St me C No te ll ll ou ys ag ar # ys at rm s nt no ma ic us Or Da si cy ia de te s n re d PI 16 10 11 30 30 00 SO Ac OG 72 -1 -1 .0 00 PE ti LI 90 2- 7- 00 00 RS ve TA 02 20 20 57 ZO 11 17 17 21 FA NE 0 41 MO LY HC L DR 30 UG MG TA BL ET SI 16 10 11 30 30 00 SO Ac MV 72 -1 -1 .0 00 PE ti 90 2- 7- 00 00 RS ve TA 00 20 20 57 TI 51 17 17 21 FA N 7 36 MO [address] UG TA BL ET FE 69 10 11 30 30 00 SO Ac NO 09 -1 -1 .0 00 PE ti FI 70 2- 7- 00 00 RS ve BR 89 20 20 57 AT 40 17 17 21 FA E 7 43 MO [address] UG CA PS UL E VE 68 10 11 30 30 00 SO Ac RA 46 -0 -1 .0 00 PE ti PA 20 6- 0- 00 00 RS ve MO 29 20 20 57 L 30 17 17 21 FA ER 1 35 MO LY [address] MG UG TA BL ET LE 00 10 11 30 30 00 SO Ac VO 37 -0 -1 .0 00 PE ti TH 81 6- 0- 00 00 RS ve YR 80 20 20 57 OX 77 17 17 21 FA IN 7 40 MO E LY 88 DR MC UG G TA BL ET GA 67 10 11 90 30 00 SO Ac BA 87 -0 -1 .0 00 PE ti PE 70 6- 0- 00 00 RS ve NT 22 20 20 56 IN 30 17 17 56 FA 5 16 MO [address] UG CA PS UL E ON 53 10 11 50 30 00 SO Ac ET 88 -0 -1 .0 00 PE ti OU 50 5- 0- 00 00 RS ve CH 24 20 20 56 45 17 17 93 FA UL 0 51 MO TR LY A TE DR ST UG ST RI PS HY 16 10 11 30 [address] 72 -0 -0 .0 00 PE ti OC 90 3- 3- 00 00 RS ve HL 18 20 20 57 OR 31 17 17 21 FA OT 7 38 MO HI LY AZ ID DR E UG 25 MG TA B ME 00 09 10 60 30 00 SO Ac TO 37 -2 -2 .0 00 PE ti GA 80 5- 7- 00 00 RS ve OL 03 20 20 57 OL 21 17 17 21 FA 0 37 MO TA LY RT RA DR TE UG 50 MG TA B VE 68 09 10 30 30 00 SO Ac RA 46 -0 -1 .0 00 PE ti PA 20 8- 3- 00 00 RS ve MO 29 20 20 57 L 30 17 17 21 FA ER 1 35 MO LY [address] MG UG TA BL ET SI 16 09 10 30 30 00 SO Ac MV 72 -0 -1 .0 00 PE ti 90 8- 3- 00 00 RS ve TA 00 20 20 57 TI 51 17 17 21 FA N 7 36 MO [address] UG TA BL ET ME 23 09 10 12 30 00 SO Ac TF 15 -0 -1 0. 00 PE ti OR 50 8- 3- 00 00 RS ve MO 10 20 20 0 57 N 21 17 17 21 FA HC 0 39 MO L LY [address] MG UG TA BL ET LE 00 09 10 30 30 00 SO Ac VO 37 -0 -1 .0 00 PE ti TH 81 8- 3- 00 00 RS ve YR 80 20 20 57 OX 77 17 17 21 FA IN 7 40 MO E LY 88 DR MC UG G TA BL ET PI 16 09 10 30 30 00 SO Ac OG 72 -0 -1 .0 00 PE ti LI 90 8- 3- 00 00 RS ve TA 02 20 20 57 ZO 11 17 17 21 FA NE 0 41 MO LY HC L DR 30 UG MG TA BL ET FE 00 09 10 30 30 00 SO Ac NO 11 -0 -1 .0 00 PE ti FI 50 8- 3- 00 00 RS ve BR 51 20 20 57 AT 10 17 17 21 FA E 1 43 MO [address] UG CA PS UL E HY 16 09 10 30 [address] 72 -0 -0 .0 00 PE ti OC 90 1- 6- 00 00 RS ve HL 18 20 20 56 OR 31 17 17 56 FA OT 7 14 MO HI LY AZ ID DR E UG 25 MG TA B ME 00 08 09 60 30 00 SO Ac TO 37 -2 -2 .0 00 PE ti GA 80 4- 9- 00 00 RS ve OL 03 20 20 56 OL 21 17 17 56 FA 0 13 MO TA LY RT RA DR TE UG 50 MG TA B GA 67 08 09 90 30 00 SO Ac BA 87 -2 -2 .0 00 PE ti PE 70 1- 2- 00 00 RS ve NT 22 20 20 56 IN 30 17 17 56 FA 5 16 MO [address] UG CA PS UL E LE 00 08 09 30 30 00 SO Ac VO 37 -1 -1 .0 00 PE ti TH 81 0- 5- 00 00 RS ve YR 80 20 20 56 OX 77 17 17 56 FA IN 7 17 MO E LY 88 DR MC UG G TA BL ET FE 00 08 09 30 30 00 SO Ac NO 11 -1 -1 .0 00 PE ti FI 50 0- 5- 00 00 RS ve BR 51 20 20 56 AT 10 17 17 56 FA E 1 38 MO [address] UG CA PS UL E PI 16 08 30 30 00 SO Ac OG 72 -1 -1 .0 00 PE ti LI 90 0- 5- 00 00 RS ve TA 02 20 20 56 ZO 11 17 17 56 FA NE 0 18 MO LY HC L DR 30 UG MG TA BL ET ME 23 08 09 12 30 00 SO Ac TF 15 -0 -0 0. 00 PE ti OR 50 7- 8- 00 00 RS ve MO 10 20 20 0 55 N 21 17 17 80 FA HC 0 87 MO L LY [address] MG UG TA BL ET VE 68 08 09 30 30 00 SO Ac RA 46 -0 -0 .0 00 PE ti PA 20 7- 8- 00 00 RS ve MO 29 20 20 56 L 30 17 17 56 FA ER 1 11 MO LY [address] MG UG TA BL ET SI 16 08 30 30 00 SO Ac MV 72 -0 -0 .0 00 PE ti 90 7- 8- 00 00 RS ve TA 00 20 20 56 TI 51 17 17 56 FA N 7 12 MO [address] UG TA BL ET ON 53 08 09 50 30 00 SO Ac ET 88 -0 -0 .0 00 PE ti OU 50 1- 1- 00 00 RS ve CH 24 20 20 56 45 17 17 93 FA UL 0 51 MO TR LY A TE DR ST UG ST RI PS HY 16 08 [address] 72 -2 -2 .0 00 PE ti OC 90 4- 5- 00 00 RS ve HL 18 20 20 56 OR 31 17 17 56 FA OT 7 14 MO HI LY AZ ID DR E UG 25 MG TA B ME 08 60 30 00 SO Ac TO 37 -2 -2 .0 00 PE ti GA 80 4- 5- 00 00 RS ve OL 03 20 20 56 OL 21 17 17 56 FA 0 13 MO TA LY RT RA DR TE UG 50 MG TA B FE 08 30 30 00 SO Ac NO 11 -1 -1 .0 00 PE ti FI 50 4- 8- 00 00 RS ve BR 51 20 20 56 AT 10 17 17 56 FA E 1 38 MO [address] UG CA PS UL E GA 67 07 08 90 30 00 SO Ac BA 87 -0 -1 .0 00 PE ti PE 70 6- 1- 00 00 RS ve NT 22 20 20 55 IN 30 17 17 80 FA 5 89 MO [address] UG CA PS UL E VE 68 07 08 30 30 00 SO Ac RA 46 -0 -1 .0 00 PE ti PA 20 6- 1- 00 00 RS ve MO 29 20 20 56 L 30 17 17 56 FA ER 1 11 MO LY [address] MG UG TA BL ET SI 16 03 27 30 30 00 SO Ac MV 72 -0 -1 .0 00 PE ti 90 6- 1- 00 00 RS ve TA 00 20 20 56 TI 51 17 17 56 FA N 7 12 MO [address] UG TA BL ET LE 00 08 30 30 00 SO Ac VO 78 -0 -1 .0 00 PE ti TH 15 6- 1- 00 00 RS ve YR 18 20 20 56 OX 39 17 17 56 FA IN 2 17 MO E LY 88 DR MC UG G TA BL ET PI 16 08 30 30 00 SO Ac OG 72 -1 -1 .0 00 PE ti LI 90 0- 1- 00 00 RS ve TA 02 20 20 56 ZO 11 17 17 56 FA NE 0 18 MO LY HC L DR 30 UG MG TA BL ET HY 16 02 24 30 [address] 72 -2 -2 .0 00 PE ti OC 90 7- 8- 00 00 RS ve HL 18 20 20 56 OR 31 17 17 56 FA OT 7 14 MO HI LY AZ ID DR E UG 25 MG TA B ME 00 06 07 60 30 00 SO Ac TO 37 -1 -2 .0 00 PE ti GA 80 9- 1- 00 00 RS ve OL 03 20 20 56 OL 21 17 17 56 FA 0 13 MO TA LY RT RA DR TE UG 50 MG TA B VE 68 07 30 30 00 SO Ac RA 46 -0 -1 .0 00 PE ti PA 20 8- 4- 00 00 RS ve MO 29 20 20 56 L 30 17 17 56 FA ER 1 11 MO LY [address] MG UG TA BL ET SI 16 02 24 30 30 00 SO Ac MV 72 -0 -1 .0 00 PE ti 90 8- 4- 00 00 RS ve TA 00 20 20 56 TI 51 17 17 56 FA N 7 12 MO [address] UG TA BL ET LE 00 02 24 30 30 00 SO Ac VO 78 -0 -1 .0 00 PE ti TH 15 8- 4- 00 00 RS ve YR 18 20 20 56 OX 39 17 17 56 FA IN 2 17 MO E LY 88 DR MC UG G TA BL ET PI 16 02 24 30 30 00 SO Ac OG 72 -0 -1 .0 00 PE ti LI 90 8- 4- 00 00 RS ve TA 02 20 20 56 ZO 11 17 17 56 FA NE 0 18 MO LY HC L DR 30 UG MG TA BL ET CE 65 06 07 20 10 00 SO Ac FD 86 -0 -1 .0 00 PE ti IN 20 8- 4- 00 00 RS ve IR 17 20 20 56 76 17 17 56 FA 30 0 19 MO [address] CA UG PS UL E FE 00 02 24 30 30 00 SO Ac NO 11 -0 -1 .0 00 PE ti FI 50 8- 4- 00 00 RS ve BR 51 20 20 56 AT 10 17 17 56 FA E 1 38 MO [address] UG CA PS UL E ME 23 01 23 12 30 00 SO Ac TF 15 -3 -3 0. 00 PE ti OR 50 1- 0- 00 00 RS ve MO 10 20 20 0 55 N 21 17 17 80 FA HC 0 87 MO L LY [address] MG UG TA BL ET HY 16 01 23 [address] 72 -2 -2 .0 00 PE ti OC 90 4- 3- 00 00 RS ve HL 18 20 20 55 OR 31 17 17 80 FA OT 7 86 MO HI LY AZ ID DR E UG 25 MG TA B ME 00 01 23 60 30 00 SO Ac TO 37 -1 -1 .0 00 PE ti GA 80 6- 6- 00 00 RS ve OL 03 20 20 55 OL 21 17 17 80 FA 0 85 MO TA LY RT RA DR TE UG 50 MG TA B GA 67 05 30 00 SO Ac BA 87 -1 -1 .0 00 PE ti PE 70 6- 6- 00 00 RS ve NT 22 20 20 55 IN 30 17 17 80 FA 5 89 MO [address] UG CA PS UL E PI 16 01 23 30 30 00 SO Ac OG 72 -0 -0 .0 00 PE ti LI 90 8- 9- 00 00 RS ve TA 02 20 20 55 ZO 11 17 17 82 FA NE 0 13 MO LY HC L DR 30 UG MG TA BL ET SI 16 01 23 30 30 00 SO Ac MV 72 -0 -0 .0 00 PE ti 90 8 00 RS ve TA 00 20 20 55 TI 51 17 17 80 FA N 7 84 MO [address] UG TA BL ET VE 68 05 03 19 30 00 SO Ac RA 46 -0 -0 .0 00 PE ti PA 20 8- 9- 00 RS ve MO 29 20 20 55 L 30 17 17 80 FA ER 1 83 MO LY [address] MG UG TA BL ET FE 00 00 SO Ac NO 11 -0 -0 .0 00 PE ti FI 50 8- 00 RS ve BR 51 20 20 55 AT 10 17 17 80 FA E 1 92 MO [address] UG CA PS UL E LE 00 00 SO Ac VO 78 -0 -0 .0 00 PE ti TH 15 00 RS ve YR 18 20 20 55 OX 39 17 17 80 FA IN 2 90 MO E LY 88 DR MC UG G TA BL ET HY 16 04 02 [address] 72 -2 -2 .0 00 PE ti OC 90 00 RS ve HL 18 20 20 55 OR 31 17 17 80 FA OT 7 86 MO HI LY AZ ID DR E UG 25 MG TA B GA 67 02 05 30 00 SO Ac BA 87 -1 -1 .0 00 PE ti PE 70 9 00 RS ve NT 22 20 20 53 IN 30 17 17 69 FA 5 49 MO [address] UG CA PS UL E VE 68 04 02 16 30 00 SO Ac RA 46 -0 -1 .0 00 PE ti PA 20 00 RS ve MO 29 20 20 55 L 30 17 17 80 FA ER 1 83 MO LY [address] MG UG TA BL ET FE 00 00 SO Ac NO 11 -0 -1 .0 00 PE ti FI 50 6- 2- 00 RS ve BR 51 20 20 55 AT 10 17 17 80 FA E 1 92 MO [address] UG CA PS UL E SI 16 04 02 16 30 00 SO Ac MV 72 -0 -1 .0 00 PE ti 90 6- 2- 00 RS ve TA 00 20 20 55 TI 51 17 17 80 FA N 7 84 MO [address] UG TA BL ET PI 16 04 02 16 30 00 SO Ac OG 72 -0 -1 .0 00 PE ti LI 90 6- 2- 00 00 RS ve TA 02 20 20 55 ZO 11 17 17 82 FA NE 0 13 MO LY HC L DR 30 UG MG TA BL ET LE 00 04 05 30 30 00 SO Ac VO 78 -0 -1 .0 00 PE ti TH 15 6- 2- 00 00 RS ve YR 18 20 20 55 OX 39 17 17 80 FA IN 2 90 MO E LY 88 DR MC UG G TA BL ET ME 00 04 05 60 30 00 SO Ac TO 37 -1 -1 .0 00 PE ti GA 80 2- 2- 00 00 RS ve OL 03 20 20 55 OL 21 17 17 80 FA 0 85 MO TA LY RT RA TE UG 50 MG TA B ON 53 04 05 1. 30 00 SO Ac ET 88 -1 -1 00 00 PE ti OU 50 0- 2- 0 00 RS ve CH 91 20 20 56 10 17 17 10 FA UL 1 70 MO TR LY AM IN DR I UG ME TE R ON 53 04 05 10 30 00 SO Ac ET 88 -1 -1 0. 00 PE ti OU 50 0- 2- 00 00 RS ve CH 24 20 20 0 56 51 17 17 10 FA UL 0 71 MO TR LY A TE ST UG ST RI PS ON 53 04 05 10 30 00 SO Ac ET 88 -1 -1 0. 00 PE ti OU 50 0- 2- 00 00 RS ve CH 14 20 20 0 56 30 17 17 10 FA DE 1 72 MO LI LY CA DR 33 UG G LA NC ET S GA 67 03 05 90 30 00 SO Ac BA 87 -3 -0 .0 00 PE ti PE 70 0- 5- 00 00 RS ve NT 22 20 20 55 IN 30 17 17 80 FA 5 89 MO [address] UG CA PS UL E HY 16 03 04 30 [address] 72 -2 -2 .0 00 PE ti OC 90 2- 1- 00 00 RS ve HL 18 20 20 55 OR 31 17 17 80 FA OT 7 86 MO HI LY AZ ID DR E UG 25 MG TA B VE 68 03 04 30 30 00 SO Ac RA 46 -0 -0 .0 00 PE ti PA 20 7- 7- 00 00 RS ve MO 29 20 20 55 L 30 17 17 80 FA ER 1 83 MO LY [address] MG UG TA BL ET SI 16 03 04 30 30 00 SO Ac MV 72 -0 -0 .0 00 PE ti 90 7- 7- 00 00 RS ve TA 00 20 20 55 TI 51 17 17 80 FA N 7 84 MO [address] UG TA BL ET ME 00 11 21 60 30 00 SO Ac TO 37 -0 -0 .0 00 PE ti GA 80 7- 7- 00 00 RS ve OL 03 20 20 55 OL 21 17 17 80 FA 0 85 MO TA LY RT RA DR TE UG 50 MG TA B ME 23 04 12 30 00 SO Ac TF 15 -0 -0 0. 00 PE ti OR 50 7- 7- 00 00 RS ve MO 10 20 20 0 55 N 21 17 17 80 FA HC 0 87 MO L LY [address] MG UG TA BL ET LE 00 04 30 30 00 SO Ac VO 78 -0 -0 .0 00 PE ti TH 15 7- 7- 00 00 RS ve YR 18 20 20 55 OX 39 17 17 80 FA IN 2 90 MO E LY 88 DR [place] G TA BL ET FE 04 30 30 00 SO Ac NO 11 -0 -0 .0 00 PE ti FI 50 7- 7- 00 00 RS ve BR 51 20 20 55 AT 10 17 17 80 FA E 1 92 MO [address] SHARRI CA PS UL E PI 16 03 04 30 30 00 SO Ac OG 72 -0 -0 .0 00 PE ti LI 90 8- 7- 00 00 RS ve TA 02 20 20 55 ZO 11 17 17 82 FA NE 0 13 MO LY HC L DR 30 UG MG TA BL ET GL 12 11 03 12 30 00 SO Ac YB 15 -2 -3 0. 00 PE ti UR 50 4- 1- 00 00 RS ve ID 05 20 20 0 53 E 81 17 17 69 FA 5 0 44 MO MG LY TA DR BL UG ET HY 16 10 23 [address] 72 -2 -2 .0 00 PE ti OC 90 2- 4- 00 00 RS ve HL 18 20 20 55 OR 31 17 17 36 FA OT 7 26 MO HI LY AZ ID DR E UG 25 MG TA B LE 03 30 30 00 SO Ac VO 78 -0 -1 .0 00 PE ti TH 15 2- 0- 00 00 RS ve YR 18 20 20 53 OX 39 17 17 69 FA IN 2 41 MO E LY 88 DR [place] G TA BL ET ME 12 11 03 12 30 00 SO Ac TF 15 -0 -1 0. 00 PE ti OR 50 2- 0- 00 00 RS ve MO 10 20 20 0 53 N 21 17 17 69 FA HC 0 43 MO L LY [address] MG UG TA BL ET SI 16 10 23 30 30 00 SO Ac MV 72 -0 -1 .0 00 PE ti 90 2- 0- 00 00 RS ve TA 00 20 20 55 TI 51 17 17 23 FA N 7 86 MO [address] UG TA BL ET VE 00 10 23 30 30 00 SO Ac RA 09 -0 -1 .0 00 PE ti PA 33 2- 0- 00 00 RS ve MO 04 20 20 55 L 40 17 17 23 FA ER 1 85 MO LY [address] MG UG TA BL ET FE 00 10 23 30 30 00 SO Ac NO 11 -0 -1 .0 00 PE ti FI 50 2- 0- 00 00 RS ve BR 51 20 20 55 AT 10 17 17 23 FA E 1 87 MO [address] UG CA PS UL E ME 00 10 23 60 30 00 SO Ac TO 37 -0 -1 .0 00 PE ti GA 80 6- 0- 00 00 RS ve OL 03 20 20 55 OL 21 17 17 27 FA 0 84 MO TA LY RT RA DR TE UG 50 MG TA B HY 16 09 21 30 [address] 72 -1 -1 .0 00 PE ti OC 90 6- 7- 00 00 RS ve HL 18 20 20 55 OR 31 17 17 36 FA OT 7 26 MO HI LY AZ ID DR E UG 25 MG TA B LE 00 08 21 30 30 00 SO Ac VO 78 -3 -0 .0 00 PE ti TH 15 0- 3- 00 00 RS ve YR 18 20 20 53 OX 39 16 17 69 FA IN 2 41 MO E LY 88 DR MC UG G TA BL ET VE 00 12 30 30 00 SO Ac RA 09 -3 -0 .0 00 PE ti PA 33 0- 3- 00 00 RS ve MO 04 20 20 55 L 40 16 17 23 FA ER 1 85 MO LY [address] MG UG TA BL ET SI 16 08 21 30 30 00 SO Ac MV 72 -3 -0 .0 00 PE ti 90 0- 3- 00 00 RS ve TA 00 20 20 55 TI 51 16 17 23 FA N 7 86 MO [address] UG TA BL ET FE 00 08 21 30 30 00 SO Ac NO 11 -3 -0 .0 00 PE ti FI 50 0- 3- 00 00 RS ve BR 51 20 20 55 AT 10 16 17 23 FA E 1 87 MO [address] UG CA PS UL E ME 00 09 21 60 30 00 SO Ac TO 37 -0 -0 .0 00 PE ti GA 80 4- 3- 00 00 RS ve OL 03 20 20 55 OL 21 17 17 27 FA 0 84 MO TA LY RT RA DR TE UG 50 MG TA B GL 23 12 12 30 00 SO Ac YB 15 -2 -2 0. 00 PE ti UR 50 7- 7- 00 RS ve ID 05 20 20 0 53 E 81 16 17 69 FA 5 0 44 MO MG LY TA DR BL UG ET GA 67 12 90 30 00 SO Ac BA 87 -2 -2 .0 00 PE ti PE 70 7- 7- 00 RS ve NT 22 20 20 53 IN 30 16 17 69 FA 5 49 MO [address] UG CA PS UL E LI 68 08 20 30 30 00 SO Ac SI 18 -2 -2 .0 00 PE ti NO 00 - 7 00 RS ve GA 51 20 20 53 IL 50 16 17 69 FA 3 42 MO [address] UG TA BL ET LE 00 08 20 30 30 00 SO Ac VO 78 -0 -0 .0 00 PE ti TH 15 9 00 RS ve YR 18 20 20 53 OX 39 16 17 69 FA IN 2 41 MO E LY 88 DR MC UG G TA BL ET SI 16 12 30 30 00 SO Ac MV 72 -0 -0 .0 00 PE ti 90 9 00 RS ve TA 00 20 20 53 TI 51 16 17 69 FA N 7 47 MO [address] UG TA BL ET FE 00 12 30 30 00 SO Ac NO 11 -0 -0 .0 00 PE ti FI 50 - 9 00 RS ve BR 51 20 20 53 AT 10 16 17 69 FA E 1 55 MO [address] UG CA PS UL E ME 23 12 12 30 00 SO Ac TF 15 -0 -0 0. 00 PE ti OR 50 1- 9- 00 00 RS ve MO 10 20 20 0 53 N 21 16 17 69 FA HC 0 43 MO L LY [address] MG UG TA BL ET ME 00 12 60 30 00 SO Ac TO 37 -0 -0 .0 00 PE ti GA 80 5- 9- 00 00 RS ve OL 03 20 20 53 OL 21 16 17 69 FA 0 46 MO TA LY RT RA DR TE UG 50 MG TA B SI 68 08 10 2 [address] Ac MV 38 -1 -2 .0 PE 17 ON ti 20 9 RS 52 E ve TA 06 20 20 DI TI 71 11 11 FA XI N 0 MO E [address] UG TA BL ET ME 50 08 10 2 60 30 SO 38 TA Ac TO 74 -1 -2 .0 PE 17 MA ti GA 20 RS 80 RE ve OL 10 20 20 N OL 91 11 11 FA JA 0 MO NE TA LY T RT RA DR TE UG 10 0 MG TA B LE 00 08 10 2 30 30 SO 38 TA Ac VO 37 -1 -2 .0 PE 17 MA ti TH 81 RS 82 RE ve YR 80 20 20 N OX 70 11 11 FA JA IN 1 MO NE E LY T 88 DR MC UG G TA BL ET LO 60 08 10 2 [address] Ac SA 50 -1 -0 .0 PE 17 ON ti RT 52 RS 51 E ve AN 91 20 20 DI -H 70 [address] 9 MO E Z LY D 10 0- DR 25 UG MG TA B TR 00 08 10 2 30 30 SO 38 TA Ac IC 07 -1 -0 .0 PE 17 MA ti OR 46 RS 81 RE ve 12 20 20 N 48 29 11 11 FA JA 0 MO NE MG LY T TA DR BL UG ET 64 08 10 2 60 30 SO 38 TA Ac 72 -1 -0 .0 PE 17 MA ti 00 RS 83 RE ve 12 20 20 N 51 11 11 FA JA 0 MO NE LY T DR UG AC 64 08 10 2 30 30 SO 38 TA Ac TO 76 -1 -0 .0 PE 17 MA ti S 40 RS 84 RE ve 30 30 20 20 N 11 11 11 FA JA MG 4 MO NE LY T TA BL DR ET UG 00 08 10 2 30 30 SO 38 TA Ac 17 -1 -0 .0 PE 17 MA ti 24 RS 85 RE ve 28 20 20 N 66 11 11 FA JA 0 MO NE LY T DR UG ME 68 08 10 2 30 30 SO 38 TA Ac TF 38 -1 -0 .0 PE 17 MA ti OR 20 RS 86 RE ve MO 02 20 20 N N 81 11 11 FA JA HC 0 MO NE L LY T [address] MG UG TA BL ET LE 00 08 09 2 30 30 SO 38 TA Ac VO 37 -1 -2 .0 PE 17 MA ti TH 81 9- 7- 00 RS 82 RE ve YR 80 20 20 N OX 70 11 11 FA JA IN 1 MO NE E LY T 88 DR MC UG G TA BL ET SI 68 08 09 2 [address] Ac MV 38 -1 -2 .0 PE 17 ON ti 20 9- 3- 00 RS 52 E ve TA 06 20 20 DI TI 71 11 11 FA XI N 0 MO E [address] UG TA BL ET ME 50 08 09 2 60 30 SO 38 TA Ac TO 74 -1 -2 .0 PE 17 MA ti GA 20 9- 3- 00 RS 80 RE ve OL 10 20 20 N OL 91 11 11 FA JA 0 MO NE TA LY T RT RA DR TE UG 10 0 MG TA B PE 00 09 09 0 30 7 SO 38 AL Ac NI 78 -1 -1 .0 PE 40 LE ti CI 11 4- 4- 00 RS 89 N ve LL 65 20 20 BR IN 51 11 11 FA AN 0 MO DO VK LY N I 50 DR 0 UG MG TA BL ET 00 08 09 2 30 30 SO 38 TA Ac 17 -1 -0 .0 PE 17 MA ti 24 9- 9- 00 RS 85 RE ve 28 20 20 N 66 11 11 FA JA 0 MO NE LY T DR UG 64 07 09 2 [address] Ac 72 -0 -0 .0 PE 81 ON ti 00 8- 6- 00 RS 77 E ve 12 20 20 DI 51 11 11 FA XI 1 MO E LY D DR UG AC 64 08 09 1 [address] Ac TO 76 -0 -0 .0 PE 04 ON ti S 40 5- 6- 00 RS 72 E ve 30 30 20 20 DI 11 11 11 FA XI MG 4 MO E LY D TA BL DR ET UG TR 00 08 09 1 [address] Ac IC 07 -0 -0 .0 PE 04 ON ti OR 46 5- 6- 00 RS 73 E ve 12 20 20 DI 48 29 11 11 FA XI 0 MO E MG LY D TA DR BL UG ET LO 13 08 09 2 [address] Ac SA 66 -1 -0 .0 PE 17 ON ti RT 80 9- 6- 00 RS 51 E ve AN 11 20 20 DI -H 89 [address] 0 MO E Z LY D 10 0- DR 25 UG MG TA B ME 68 08 09 2 30 30 SO 38 TA Ac TF 38 -1 -0 .0 PE 17 MA ti OR 20 9- 6- 00 RS 86 RE ve MO 02 20 20 N N 81 11 11 FA JA HC 0 MO NE L LY T [address] MG UG TA BL ET LE 00 07 08 1 [address] Ac VO 37 -2 -2 .0 PE 96 ON ti TH 81 6- 4- 00 RS 11 E ve YR 80 20 20 DI OX 70 11 11 FA XI IN 1 MO E E LY D 88 DR MC UG G TA BL ET ME 50 07 08 1 [address] Ac TO 74 -2 -2 .0 PE 96 ON ti GA 20 6- 4- 00 RS 12 E ve OL 10 20 20 DI OL 91 11 11 FA XI 0 MO E TA LY D RT RA TE UG 10 0 MG TA B SI 68 08 08 2 [address] Ac MV 38 -1 -1 .0 PE 17 ON ti 20 9- 9 00 RS 52 E ve TA 06 20 20 DI TI 71 11 11 FA XI N 0 MO E [address] UG TA BL ET 00 07 08 1 [address] Ac 17 -0 -1 .0 PE 81 ON ti 24 8- 1- 00 RS 76 E ve 28 20 20 DI 66 11 11 FA XI 0 MO E LY D DR SHARRI LO 13 07 08 1 [address] Ac SA 66 -0 -0 .0 PE 81 ON ti RT 80 8- 5- 00 RS 74 E ve AN 11 20 20 DI -H 89 [address] 0 MO E Z LY D 10 0- DR 25 UG MG TA B 64 07 08 2 [address] Ac 72 -0 -0 .0 PE 81 ON ti 00 8- 5- 00 RS 77 E ve 12 20 20 DI 51 11 11 FA XI 1 MO E LY D DR UG AC 64 08 08 1 [address] Ac TO 76 -0 -0 .0 PE 04 ON ti S 40 5- 5- 00 RS 72 E ve 30 30 20 20 DI 11 11 11 FA XI MG 4 MO E LY D TA BL DR ET UG TR 00 08 08 1 [address] Ac IC 07 -0 -0 .0 PE 04 ON ti OR 46 5- 5- 00 RS 73 E ve 12 20 20 DI 48 29 11 11 FA XI 0 MO E MG LY D TA DR BL UG ET LE 00 07 07 1 [address] Ac VO 37 -2 -2 .0 PE 96 ON ti TH 81 6- 6 00 RS 11 E ve YR 80 20 20 DI OX 70 11 11 FA XI IN 1 MO E E LY D 88 DR MC UG G TA BL ET ME 63 07 07 1 [address] Ac TO 30 -2 -2 .0 PE 96 ON ti GA 40 6- 6 00 RS 12 E ve OL 58 20 20 DI OL 11 11 11 FA XI 0 MO E TA LY D RT RA DR TE UG 10 0 MG TA B SI 68 07 07 0 [address] Ac MV 38 -1 -2 .0 PE 85 ON ti 20 3- 0- 00 RS 08 E ve TA 06 20 20 DI TI 71 11 11 FA XI N 0 MO E [address] UG TA BL ET TR 00 07 07 0 [address] Ac IC 07 -0 -0 .0 PE 81 ON ti OR 46 8 RS 72 E ve 12 20 20 DI 48 29 11 11 FA XI 0 MO E MG LY D TA DR BL UG ET ME 68 07 07 0 [address] Ac TF 38 -0 -0 .0 PE 81 ON ti OR 20 8- 8- RS 73 E ve MO 02 20 20 DI N 81 11 11 FA XI HC 0 MO E L LY D [address] MG UG TA BL ET LO 60 07 07 1 [address] Ac SA 50 -0 -0 .0 PE 81 ON ti RT 52 8- 8 RS 74 E ve AN 91 20 20 DI -H 70 [address] 3 MO E Z LY D 10 0- DR 25 UG MG TA B 64 07 07 2 [address] Ac 72 -0 -0 .0 PE 81 ON ti 00 8 8 RS 77 E ve 12 20 20 DI 51 11 11 FA XI 1 MO E LY D DR UG AC 64 07 07 0 [address] Ac TO 76 -0 -0 .0 PE 81 ON ti S 40 8- 8 RS 78 E ve 30 30 20 20 DI 11 11 11 FA XI MG 4 MO E LY D TA BL DR ET UG 00 07 07 1 [address] Ac 17 -0 -0 .0 PE 81 ON ti 24 8 RS 76 E ve 28 20 20 DI 66 11 11 FA XI 0 MO E LY D DR UG 00 02 [...] 20 S 9 DI [address] REGALADO 0 UG E D CO [...] 8- 7- 00 IN 97 E ve MO 02 20 20 S 8 DI N [...] 20 S 9 DI [address] REGALADO 0 UG E D CO [...] 3- 9- 00 IN 18 RE ve MO 02 20 20 S 4 N N [...] 3- 1- 00 IN 18 RE ve MO 02 20 20 S 4 N N [...] 3- 8- 00 IN 18 RE ve MO 02 20 20 S 4 N N [...] 9- 9- 00 IN 46 RE ve MO 02 20 20 S 3 N N [...] S 8 N [address] JA 0 UG NE T CO MP AN Y IN C AC 64 11 12 2 60 30 HO 10 TA Ac TO 76 -0 -2 .0 PK 12 MA ti S 40 1- 9- 00 IN 07 RE ve 15 15 20 20 S 8 N [address] ALEX MG 4 UG [...] 2- 0- 00 IN 82 RE ve MO 02 20 20 S 8 N N [address] ALEX [...] 1 N TI [address] ALEX [...] 2- 9- 00 IN 82 RE ve MO 02 20 20 S 8 N N [...] S 8 N [address] ALEX MG 4 UG NE T TA CO BL MP ET AN Y IN C 00 07 10 2 30 30 HO 10 TA Ac 78 -2 -2 .0 PK 10 MA ti 15 3- 7- 00 IN 95 RE ve 18 20 20 S 8 N [address] JA 1 UG NE T CO MP AN Y IN C HY 00 10 10 2 30 30 HO 10 TA Ac ZA 00 -2 -2 .0 PK 11 MA ti AR 60 7- 7- 00 IN 94 RE ve 74 20 20 S 6 N [address] ALEX [...] 2- 2- 00 IN 82 RE ve MO 02 20 20 S 8 N N [...] 0 N TI [address] ALEX [...] 3- 2- 00 IN 18 E ve MO 02 20 20 S 2 DI N [...] 3- 3- 00 IN 18 E ve MO 02 20 20 S 2 DI N [...] S 8 N [address] JA MG [...] 0 N TI [address] ALEX N 9 UG NE 20 T CO MG MP AN TA Y BL IN ET C ME 68 07 07 2 [address] Ac TF 38 -2 -2 .0 PK 09 ON ti OR 20 3- 3- 00 IN 18 E ve MO 02 20 20 S 2 DI N [address] XI HC 0 UG E L D 50 [...] 5 N TI [address] JA N 9 UG NE 20 T CO [...] 3 N [address] JA [...] 4- 8- 00 IN 39 RE ve MO 02 20 20 S 0 N N [...] 3 N -H [address] 6 UG NE Z T 10 [...] 4- 4- 00 IN 39 RE ve MO 02 20 20 S 0 N N [...] 2- 4- 00 IN 49 RE ve MO 02 20 20 S 6 N N [...] 1 DI [address] XI 0- 1 UG E 25 D CO [...] S 4 N 48 29 10 10 JA 0 UG NE MG T CO [...] 2- 5- 00 IN 49 RE ve MO 02 20 20 S 6 N N [...] Y BL IN ET C ME 68 02 02 00 30 30 HO 10 TA Ac TF 38 -1 -2 .0 PK 04 MA ti OR 20 2- 6- 00 IN 49 RE ve MO 02 20 20 S 6 N N [address] [facility] HC 0 UG NE L T 50 CO 0 MG IN C TA BL ET 00 10 02 02 [address] Ac 17 -2 -2 .0 PK 02 ON ti 24 0- 6- 00 IN 63 E ve 28 20 20 S 5 DI 06 09 10 XI 0 UG E D CO IN C TR 00 10 02 02 30 30 HO 10 TA Ac IC 07 -2 -1 .0 PK 01 MA ti OR 46 0- 1- 00 IN 92 RE ve 12 20 20 S 9 N [address] ALEX 0 UG NE MG T CO TA BL IN ET C 00 10 02 02 90 30 HO 10 TA Ac 78 -2 -1 .0 PK 00 MA ti 11 0- 1- 00 IN 54 RE ve 19 20 20 S 2 N [address] [place] 0 UG NE T CO IN C SI 65 01 02 00 30 30 HO 10 TA Ac MV 86 -2 -1 .0 PK 04 MA ti 20 9- 1- 00 IN 02 RE ve TA 05 20 20 S 0 N TI [address] [place] N 9 UG NE 20 T CO MG IN TA C BL ET HY 00 01 02 00 [address] Ac ZA 00 -2 -1 .0 PK 03 ON ti AR 60 5- 1- 00 IN 86 E ve 74 20 20 S 1 DI 10 73 10 10 XI 0- 1 UG E 25 D CO TA BL IN ET C 00 01 02 00 60 30 HO 10 TA Ac 78 -2 -1 .0 PK 03 MA ti 11 5- 1- 00 IN 86 RE ve 22 20 20 S 0 N [address] JA 0 UG NE T CO IN C AC 64 10 02 02 30 30 HO 10 TA Ac TO 76 -2 -1 .0 PK 01 MA ti S 40 0- 1- 00 IN 93 RE ve 30 30 20 20 S 0 N [address] [facility] MG 4 UG NE T TA CO BL ET IN C 00 10 01 01 [address] Ac 78 -2 -2 .0 PK 02 ON ti 15 0- 8- 00 IN 63 E ve 18 20 20 S 4 DI [address] XI 1 UG E D CO IN C ME 68 10 01 02 30 30 HO 10 TA Ac TF 38 -2 -2 .0 PK 00 MA ti OR 20 0- 8- 00 IN 54 RE ve MO 02 20 20 S 4 N N [address] [facility] HC 0 UG NE L T 50 CO 0 MG IN C TA BL ET 00 10 01 01 [address] Ac 17 -2 -2 .0 PK 02 ON ti 24 0- 8- 00 IN 63 E ve 28 20 20 S 5 DI [address] REGALADO 0 UG E D CO IN C 00 10 01 02 [address] Ac 78 -2 -1 .0 PK 00 ON ti 11 0- 4- 00 IN 79 E ve 22 20 20 S 0 DI [address] REGALADO 0 UG E D CO IN C TR 00 10 01 01 30 30 HO 10 TA Ac IC 07 -2 -1 .0 PK 01 MA ti OR 46 0- 4- 00 IN 92 RE ve 12 20 20 S 9 N [address] [place] 0 UG NE MG T CO TA BL IN ET C AC 64 10 01 01 30 30 HO 10 TA Ac TO 76 -2 -1 .0 PK 01 MA ti S 40 0- 4- 00 IN 93 RE ve 30 30 20 20 S 0 N [address] [place] MG 4 UG NE T TA CO BL ET IN C HY 00 10 01 02 [address] Ac ZA 00 -2 -1 .0 PK 00 ON ti AR 60 0- 4- 00 IN 78 E ve 74 20 20 S 9 DI [address] REGALADO 0- 1 UG E 25 D CO TA BL IN ET C SI 65 10 01 02 30 30 HO 10 TA Ac MV 86 -2 -1 .0 PK 01 MA ti 20 0- 4- 00 IN 01 RE ve TA 05 20 20 S 5 N TI [address] [place] N 9 UG NE 20 T CO MG IN TA C BL ET 00 10 12 00 [address] Ac 78 -2 -3 .0 PK 02 ON ti 15 0- 1- 00 IN 63 E ve 18 20 20 S 4 DI 30 09 09 XI 1 UG E D CO IN C 00 10 12 00 [address] Ac 17 -2 -3 .0 PK 02 ON ti 24 0- 1- 00 IN 63 E ve 28 20 20 S 5 DI 06 09 09 XI 0 UG E D CO IN C 00 10 12 01 90 30 HO 10 TA Ac 78 -2 -1 .0 PK 00 MA ti 11 0- 7- 00 IN 54 RE ve 19 20 20 S 2 N [address] [place] 0 UG NE T CO IN C ME 68 10 12 01 30 30 HO 10 TA Ac TF 38 -2 -1 .0 PK 00 MA ti OR 20 0- 7- 00 IN 54 RE ve MO 02 20 20 S 4 N N [address] [place] HC 0 UG NE L T 50 CO 0 MG IN C TA BL ET SI 65 10 12 01 30 30 HO 10 TA Ac MV 86 -2 -1 .0 PK 01 MA ti 20 0- 7- 00 IN 01 RE ve TA 05 20 20 S 5 N TI [address] ALEX Cortez 9 UG NE 20 T CO MG IN TA C BL ET 00 10 12 01 [address] Ac 78 -2 -0 .0 PK 00 ON ti 11 0- 3- 00 IN 79 E ve 22 20 20 S 0 DI [address] REGALADO 0 UG E D CO IN C HY 00 10 12 01 [address] Ac ZA 00 -2 -0 .0 PK 00 ON ti AR 60 0- 3- 00 IN 78 E ve 74 20 20 S 9 DI [address] REGALADO 0- 1 UG E 25 D CO TA BL IN ET C TR 00 10 12 00 30 30 HO 10 TA Ac IC 07 -2 -0 .0 PK 01 MA ti OR 46 0- 3- 00 IN 92 RE ve 12 20 20 S 9 N [address] [place] 0 UG NE MG T CO TA BL IN ET C AC 64 10 12 00 30 30 HO 10 TA Ac TO 76 -2 -0 .0 PK 01 MA ti S 40 0- 3- 00 IN 93 RE ve 30 30 20 20 S 0 N [address] [place] MG 4 UG NE T TA CO BL ET IN C 00 07 11 02 [address] Ac 17 -2 -1 .0 PK 90 ON ti 24 1- 9- 00 IN 60 E ve 28 20 20 S DI [address] REGALADO 0 UG E D CO IN C 00 07 11 02 [address] Ac 78 -2 -1 .0 PK 89 ON ti 15 1- 9- 00 IN 71 E ve 18 20 20 S DI [address] REGALDAO 1 UG E D CO IN C SI 65 10 11 00 30 30 HO 10 TA Ac MV 86 -2 -1 .0 PK 01 MA ti 20 0- 9- 00 IN 01 RE ve TA 05 20 20 S 5 N TI [address] [place] N 9 UG NE 20 T CO MG IN TA C BL ET TR 00 07 11 02 [address] Ac IC 07 -2 -0 .0 PK 84 ON ti OR 46 1- 5- 00 IN 91 E ve 12 20 20 S DI [address] REGALADO 0 UG E MG D CO TA BL IN ET C HY 00 10 11 00 [address] Ac ZA 00 -2 -0 .0 PK 00 ON ti AR 60 0- 5- 00 IN 78 E ve 74 20 20 S 9 DI [address] REGALADO 0- 1 UG E 25 D CO TA BL IN ET C BAUMAN 00 10 11 00 10 5 HO 10 TA Ac LF 60 -2 -0 .0 PK 00 MA ti AM 35 0- 5- 00 IN 54 RE ve ET 78 20 20 S 1 N HO [address] [facility]ON XA 8 UG NE ZO T LE CO -T MP IN C DS TA BL ET ME 68 10 11 00 30 30 HO 10 TA Ac TF 38 -2 -0 .0 PK 00 MA ti OR 20 0- 5- 00 IN 54 RE ve MO 02 20 20 S 4 N N [address] ALEX WALL 0 UG NE L T 50 CO 0 MG IN C TA BL ET 00 10 11 00 [address] Ac 78 -2 -0 .0 PK 00 ON ti 11 0- 5- 00 IN 79 E ve 22 20 20 S 0 DI [address] REGALADO 0 UG E D CO IN C 00 10 11 00 90 30 HO 10 TA Ac 78 -2 -0 .0 PK 00 MA ti 11 0- 5- 00 IN 54 RE ve 19 20 20 S 2 N [address] [place] 0 UG NE T CO IN C AC 64 07 11 02 [address] Ac TO 76 -2 -0 .0 PK 84 ON ti S 40 1- 5- 00 IN 14 E ve 30 30 20 20 S DI [address] REGALADO MG 4 UG E D TA CO BL ET IN C 00 07 10 01 [address] Ac 78 -2 -2 .0 PK 89 ON ti 15 1- 2- 00 IN 71 E ve 18 20 20 S DI [address] REGALADO 1 UG E D CO IN C 00 07 10 01 [address] Ac 17 -2 -2 .0 PK 90 ON ti 24 1- 2- 00 IN 60 E ve 28 20 20 S DI [address] REGALADO 0 UG E D CO IN C 00 07 10 02 [address] Ac 78 -2 -0 .0 PK 75 ON ti 11 2- 8- 00 IN 59 E ve 22 20 20 S DI 81 09 09 XI 0 UG E D CO IN C SI 65 07 10 02 [address] Ac MV 86 -2 -0 .0 PK 78 ON ti 20 1- 8- 00 IN 53 E ve TA 05 20 20 S DI TI [address] REGALADO N 9 UG E 20 D CO MG IN TA C BL ET ME 68 08 10 01 60 30 HO 99 TA Ac TF 38 -2 -0 .0 PK 85 MA ti OR 20 4- 8- 00 IN 00 RE ve MO 02 20 20 S N N [address] [facility] HC 0 UG NE L T 50 CO 0 MG IN C TA BL ET HY 00 07 10 02 [address] Ac ZA 00 -2 -0 .0 PK 76 ON ti AR 60 1- 8- 00 IN 78 E ve 74 20 20 S DI [address] REGALADO 0- 1 UG E 25 D CO TA BL IN ET C TR 00 07 10 01 [address] Ac IC 07 -2 -0 .0 PK 84 ON ti OR 46 1- 8- 00 IN 91 E ve 12 20 20 S DI [address] REGALADO 0 UG E MG D CO TA BL IN ET C 00 07 10 02 [address] Ac 78 -2 -0 .0 PK 75 ON ti 11 2- 8- 00 IN 60 E ve 19 20 20 S DI [address] REGALADO 0 UG E D CO IN C AC 64 07 10 01 [address] Ac TO 76 -2 -0 .0 PK 84 ON ti S 40 1- 8- 00 IN 14 E ve 30 30 20 20 S DI [address] REGALADO MG 4 UG E D TA CO BL ET IN C 00 07 09 00 [address] Ac 17 -2 -2 .0 PK 90 ON ti 24 1- 4- 00 IN 60 E ve 28 20 20 S DI 06 09 09 XI 0 UG E D CO IN C HY 00 07 09 01 [address] Ac ZA 00 -2 -1 .0 PK 76 ON ti AR 60 1- 0- 00 IN 78 E ve 74 20 20 S DI [address] REGALADO 0- 1 UG E 25 D CO TA BL IN ET C ME 68 08 09 00 60 30 HO 99 TA Ac TF 38 -2 -1 .0 PK 85 MA ti OR 20 4- 0- 00 IN 00 RE ve MO 02 20 20 S N N [address] [place] HC 0 UG NE L T 50 CO 0 MG IN C TA BL ET 00 07 09 00 [address] Ac 78 -2 -1 .0 PK 89 ON ti 15 1- 0- 00 IN 71 E ve 18 20 20 S DI 30 09 09 XI 1 UG E D CO IN C 00 07 09 01 [address] Ac 78 -2 -1 .0 PK 75 ON ti 11 2- 0- 00 IN 59 E ve 22 20 20 S DI 81 09 09 XI 0 UG E D CO IN C TR 00 07 09 00 [address] Ac IC 07 -2 -1 .0 PK 84 ON ti OR 46 1- 0- 00 IN 91 E ve 12 20 20 S DI [address] REGALADO 0 UG E MG D CO TA BL IN ET C SI 65 07 09 01 [address] Ac MV 86 -2 -1 .0 PK 78 ON ti 20 1- 0- 00 IN 53 E ve TA 05 20 20 S DI TI [address] REGALADO N 9 UG E 20 D CO MG IN TA C BL ET AC 64 08 08 00 [address] Ac TO 76 -2 -2 .0 PK 84 ON ti S 40 1- 7- 00 IN 14 E ve 30 30 20 20 S DI [address] REGALADO MG 4 UG E D TA CO BL ET IN C 00 07 08 01 [address] Ac 78 -2 -2 .0 PK 75 ON ti 11 2- 7- 00 IN 60 E ve 19 20 20 S DI 11 09 09 XI 0 UG E D CO IN C 00 04 08 02 [address] Ac 78 -2 -1 .0 PK 63 ON ti 15 1- 3- 00 IN 05 E ve 18 20 20 S DI [address] REGALADO 1 UG E D CO IN C TR 00 04 08 02 [address] Ac IC 07 -2 -1 .0 PK 60 ON ti OR 46 1- 3- 00 IN 01 E ve 12 20 20 S DI [address] REGALADO 0 UG E MG D CO TA BL IN ET C 00 04 08 02 [address] Ac 17 -2 -1 .0 PK 63 ON ti 24 1- 3- 00 IN 06 E ve 28 20 20 S DI [address] REGALADO 0 UG E D CO IN C HY 00 07 08 00 [address] Ac ZA 00 -2 -1 .0 PK 76 ON ti AR 60 1- 3- 00 IN 78 E ve 74 20 20 S DI [address] REGALADO 0- 1 UG E 25 D CO TA BL IN ET C SI 65 07 08 00 [address] Ac MV 86 -2 -1 .0 PK 78 ON ti 20 1- 3- 00 IN 53 E ve TA 05 20 20 S DI TI [address] REGALADO N 9 UG E 20 D CO MG IN TA C BL ET 00 07 07 00 [address] Ac 78 -2 -3 .0 PK 75 ON ti 11 2- 0- 00 IN 59 E ve 22 20 20 S DI [address] REGALADO 0 UG E D CO IN C AC 64 04 07 02 [address] Ac TO 76 -2 -3 .0 PK 59 ON ti S 40 1- 0- 00 IN 11 E ve 30 30 20 20 S DI [address] REGALADO MG 4 UG E D TA CO BL ET IN C 00 07 07 00 [address] Ac 78 -2 -3 .0 PK 75 ON ti 11 2- 0- 00 IN 60 E ve 19 20 20 S DI [address] REGALADO 0 UG E D CO IN C ME 68 07 07 00 [address] Ac TF 38 -2 -3 .0 PK 76 ON ti OR 20 4- 0- 00 IN 23 E ve MO 02 20 20 S DI N [address] REGALADO HC 0 UG E L D 50 CO 0 MG IN C TA BL ET 00 04 07 01 [address] Ac 78 -2 -1 .0 PK 63 ON ti 15 1- 6- 00 IN 05 E ve 18 20 20 S DI [address] REGALADO 1 UG E D CO IN C 00 04 07 01 [address] Ac 17 -2 -1 .0 PK 63 ON ti 24 1- 6- 00 IN 06 E ve 28 20 20 S DI [address] REGALADO 0 UG E D CO IN C SI 65 04 07 02 [address] Ac MV 86 -2 -1 .0 PK 53 ON ti 20 1- 6- 00 IN 20 E ve TA 05 20 20 S DI TI [address] REGALADO N 9 UG E 20 D CO MG IN TA C BL ET ME 68 04 07 02 [address] Ac TF 38 -2 -0 .0 PK 51 ON ti OR 20 1- 2- 00 IN 34 E ve MO 02 20 20 S DI N [address] REGALADO HC 0 UG E L D 50 CO 0 MG IN C TA BL ET HY 00 04 07 02 [address] Ac ZA 00 -2 -0 .0 PK 50 ON ti AR 60 4- 2- 00 IN 84 E ve 74 20 20 S DI [address] REGALADO 0- 1 UG E 25 D CO TA BL IN ET C TR 00 04 07 01 [address] Ac IC 07 -2 -0 .0 PK 60 ON ti OR 46 1- 2- 00 IN 01 E ve 12 20 20 S DI [address] REGALADO 0 UG E MG D CO TA BL IN ET C 00 04 07 02 [address] Ac 78 -2 -0 .0 PK 50 ON ti 11 1- 2- 00 IN 01 E ve 22 20 20 S DI [address] REGALADO 0 UG E D CO IN C AC 64 04 07 01 [address] Ac TO 76 -2 -0 .0 PK 59 ON ti S 40 1- 2- 00 IN 11 E ve 30 30 20 20 S DI [address] REGALADO MG 4 UG E D TA CO BL ET IN C 00 04 07 02 [address] Ac 78 -2 -0 .0 PK 50 ON ti 11 1- 2- 00 IN 00 E ve 19 20 20 S DI [address] REGALADO 0 UG E D CO IN C 00 04 06 00 [address] Ac 17 -2 -1 .0 PK 63 ON ti 24 1- 8- 00 IN 06 E ve 28 20 20 S DI [address] REGALADO 0 UG E D CO IN C SI 65 04 06 01 [address] Ac MV 86 -2 -1 .0 PK 53 ON ti 20 1- 8- 00 IN 20 E ve TA 05 20 20 S DI TI [address] REGALADO N 9 UG E 20 D CO MG IN TA C BL ET 00 04 06 00 [address] Ac 78 -2 -1 .0 PK 63 ON ti 15 1- 8- 00 IN 05 E ve 18 20 20 S DI [address] REGALADO 1 UG E D CO IN C 00 04 06 01 [address] Ac 78 -2 -0 .0 PK 50 ON ti 11 1- 4- 00 IN 00 E ve 19 20 20 S DI 11 09 09 XI 0 UG E D CO IN C ME 68 04 06 01 [address] Ac TF 38 -2 -0 .0 PK 51 ON ti OR 20 1- 4- 00 IN 34 E ve MO 02 20 20 S DI N [address] REGALADO HC 0 UG E L D 50 CO 0 MG IN C TA BL ET HY 00 04 06 01 [address] Ac ZA 00 -2 -0 .0 PK 50 ON ti AR 60 4- 4- 00 IN 84 E ve 74 20 20 S DI [address] REGALADO 0- 1 UG E 25 D CO TA BL IN ET C 00 04 06 01 [address] Ac 78 -2 -0 .0 PK 50 ON ti 11 1- 4- 00 IN 01 E ve 22 20 20 S DI [address] REGALADO 0 UG E D CO IN C TR 00 04 06 00 [address] Ac IC 07 -2 -0 .0 PK 60 ON ti OR 46 1- 4- 00 IN 01 E ve 12 20 20 S DI [address] REGALADO 0 UG E MG D CO TA BL IN ET C AC 64 04 06 00 [address] Ac TO 76 -2 -0 .0 PK 59 ON ti S 40 1- 4- 00 IN 11 E ve 30 30 20 20 S DI [address] REGALADO MG 4 UG E D TA CO BL ET IN C SI 65 04 05 00 [address] Ac MV 86 -2 -2 .0 PK 53 ON ti 20 1- - IN 20 E ve TA 05 20 20 S DI TI [address] REGALADO N 9 UG E 20 D CO MG IN TA C BL ET 00 01 05 02 [address] Ac 78 -2 -2 .0 PK 33 ON ti 15 1- 1- 00 IN 49 E ve 18 20 20 S DI [address] REGALADO 1 UG E D CO IN C HY 00 04 05 00 [address] Ac ZA 00 -2 -0 .0 PK 50 ON ti AR 60 4- 7- 00 IN 84 E ve 74 20 20 S DI [address] REGALADO 0- 1 UG E 25 D CO TA BL IN ET C 00 04 05 00 [address] Ac 78 -2 -0 .0 PK 50 ON ti 11 1- 7- 00 IN 01 E ve 22 20 20 S DI 81 09 09 XI 0 UG E D CO IN C 00 04 05 00 [address] Ac 78 -2 -0 .0 PK 50 ON ti 11 1- 7- 00 IN 00 E ve 19 20 20 S DI 11 09 09 XI 0 UG E D CO IN C AC 64 01 05 02 [address] Ac TO 76 -2 -0 .0 PK 29 ON ti S 40 1- 7- 00 IN 62 E ve 30 30 20 20 S DI [address] REGALADO MG 4 UG E D TA CO BL ET IN C TR 00 01 05 02 [address] Ac IC 07 -2 -0 .0 PK 31 ON ti OR 46 1- 7- 00 IN 46 E ve 12 20 20 S DI [address] REGALADO 0 UG E MG D CO TA BL IN ET C ME 68 04 05 00 [address] Ac TF 38 -2 -0 .0 PK 51 ON ti OR 20 1- 7- 00 IN 34 E ve MO 02 20 20 S DI N [address] REGALADO HC 0 UG E L D 50 CO 0 MG IN C TA BL ET 00 11 04 02 30 30 HO 99 TA Ac 17 -2 -2 .0 PK 02 MA ti 24 4- 3- 00 IN 20 RE ve 28 20 20 S N [address] [place] 0 UG NE T CO IN C SI 65 01 04 02 [address] Ac MV 86 -2 -0 .0 PK 24 ON ti 20 1- 9- 00 IN 11 E ve TA 05 20 20 S DI TI [address] REGALADO N 9 UG E 20 D CO MG IN TA C BL ET 00 01 04 01 [address] Ac 78 -2 -0 .0 PK 33 ON ti 15 1- 9- 00 IN 49 E ve 18 20 20 S DI 30 09 09 XI 1 UG E D CO IN C ME 68 01 04 02 [address] Ac TF 38 -2 -0 .0 PK 20 ON ti OR 20 1- 9- 00 IN 93 E ve MO 02 20 20 S DI N [address] REGALADO HC 0 UG E L D 50 CO 0 MG IN C TA BL ET TR 00 01 04 01 [address] Ac IC 07 -2 -0 .0 PK 31 ON ti OR 46 1- 9- 00 IN 46 E ve 12 20 20 S DI [address] REGALADO 0 UG E MG D CO TA BL IN ET C 00 01 04 02 [address] Ac 78 -2 -0 .0 PK 20 ON ti 11 1- 9- 00 IN 95 E ve 19 20 20 S DI [address] REGALADO 0 UG E D CO IN C AC 64 01 04 01 [address] Ac TO 76 -2 -0 .0 PK 29 ON ti S 40 1- 9- 00 IN 62 E ve 30 30 20 20 S DI [address] REGALADO MG 4 UG E D TA CO BL ET IN C HY 00 01 04 02 [address] Ac ZA 00 -2 -0 .0 PK 20 ON ti AR 60 1- 9- 00 IN 94 E ve 74 20 20 S DI [address] REGALADO 0- 1 UG E 25 D CO TA BL IN ET C 00 01 04 02 [address] Ac 78 -2 -0 .0 PK 20 ON ti 11 1- 9- 00 IN 96 E ve 22 20 20 S DI [address] REGALADO 0 UG E D CO IN C SI 65 01 03 01 [address] Ac MV 86 -2 -1 .0 PK 24 ON ti 20 1- 2- 00 IN 11 E ve TA 05 20 20 S DI TI [address] REGALADO N 9 UG E 20 D CO MG IN TA C BL ET TR 00 01 03 00 [address] Ac IC 07 -2 -1 .0 PK 31 ON ti OR 46 1- 2- 00 IN 46 E ve 12 20 20 S DI [address] REGALADO 0 UG E MG D CO TA BL IN ET C 00 01 03 00 [address] Ac 78 -2 -1 .0 PK 33 ON ti 15 1- 2- 00 IN 49 E ve 18 20 20 S DI 30 09 09 XI 1 UG E D CO IN C 00 01 03 01 [address] Ac 78 -2 -1 .0 PK 20 ON ti 11 1- 2- 00 IN 96 E ve 22 20 20 S DI [address] REGALADO 0 UG E D CO IN C ME 68 01 02 01 [address] Ac TF 38 -2 -2 .0 PK 20 ON ti OR 20 1- 6- 00 IN 93 E ve MO 02 20 20 S DI N [address] REGALADO HC 0 UG E L D 50 CO 0 MG IN C TA BL ET HY 00 01 02 01 [address] Ac ZA 00 -2 -2 .0 PK 20 ON ti AR 60 1- 6- 00 IN 94 E ve 74 20 20 S DI [address] REGALADO 0- 1 UG E 25 D CO TA BL IN ET C AC 64 01 02 00 [address] Ac TO 76 -2 -2 .0 PK 29 ON ti S 40 1- 6- 00 IN 62 E ve 30 30 20 20 S DI [address] REGALADO MG 4 UG E D TA CO BL ET IN C 00 01 02 01 [address] Ac 78 -2 -2 .0 PK 20 ON ti 11 1- 6- 00 IN 95 E ve 19 20 20 S DI [address] REGALADO 0 UG E D CO IN C LE 00 11 02 02 30 30 HO 99 TA Ac VO 52 -2 -1 .0 PK 02 MA ti TH 71 4- 2- 00 IN 22 RE ve YR 34 20 20 S N OX [address] [place] IN 1 UG NE E T 88 CO MC IN G C TA BL ET 00 11 02 01 30 30 HO 99 TA Ac 17 -2 -1 .0 PK 02 MA ti 24 4- 2- 00 IN 20 RE ve 28 20 20 S N [address] [place] 0 UG NE T CO IN C SI 65 02 00 [address] Ac MV 86 -2 -1 .0 PK 24 ON ti 20 1- 2- 00 IN 11 E ve TA 05 20 20 S DI TI [address] REGALADO N 9 UG E 20 D CO MG IN TA C BL ET AC 64 11 01 02 30 30 HO 99 TA Ac TO 76 -2 -3 .0 PK 02 MA ti S 40 4- 0- 00 IN 21 RE ve 30 30 20 20 S N [address] [place] MG 4 UG NE T TA CO BL ET IN C 00 01 01 00 [address] Ac 78 -2 -3 .0 PK 20 ON ti 11 1- 0- 00 IN 96 E ve 22 20 20 S DI [address] REGALADO 0 UG E D CO IN C 00 01 01 00 [address] Ac 78 -2 -3 .0 PK 20 ON ti 11 1- 0- 00 IN 95 E ve 19 20 20 S DI [address] REGALADO 0 UG E D CO IN C ME 68 01 01 00 [address] Ac TF 38 -2 -3 .0 PK 20 ON ti OR 20 1- 0- 00 IN 93 E ve MO 02 20 20 S DI N [address] REAGLADO HC 0 UG E L D 50 CO 0 MG IN C TA BL ET HY 00 01 01 00 [address] Ac ZA 00 -2 -3 .0 PK 20 ON ti AR 60 1- 0- 00 IN 94 E ve 74 20 20 S DI [address] REGALADO 0- 1 UG E 25 D CO TA BL IN ET C TR 00 10 01 02 30 30 HO 99 TA Ac IC 07 -1 -3 .0 PK 00 MA ti OR 46 4- 0- 00 IN 54 RE ve 12 20 20 S N [address] [place] 0 UG NE MG T CO TA BL IN ET C LE 00 11 01 01 30 30 HO 99 TA Ac VO 52 -2 -1 .0 PK 02 MA ti TH 71 4- 5- 00 IN 22 RE ve YR 34 20 20 S N OX [address] [facility] IN 1 UG NE E T 88 CO MC IN G C TA BL ET SI 65 10 01 02 30 30 HO 98 TA Ac MV 86 -1 -1 .0 PK 95 MA ti 20 4- 5- 00 IN 85 RE ve TA 05 20 20 S N TI [address] [facility] N 9 UG NE 20 T CO MG IN TA C BL ET TR 00 10 01 01 30 30 HO 99 TA Ac IC 07 -1 -0 .0 PK 00 MA ti OR 46 4- 1- 00 IN 54 RE ve 12 20 20 S N [address] [place] 0 UG NE MG T CO TA BL IN ET C 00 10 01 02 60 30 HO 98 TA Ac 78 -2 -0 .0 PK 92 MA ti 11 4- 1- 00 IN 17 RE ve 22 20 20 S N [address] [place] 0 UG NE T CO IN C 00 10 01 02 60 30 HO 98 TA Ac 78 -2 -0 .0 PK 92 MA ti 11 4- 1- 00 IN 16 RE ve 19 20 20 S N [address] [place] 0 UG NE T CO IN C ME 68 10 01 02 60 30 HO 98 TA Ac TF 38 -1 -0 .0 PK 92 MA ti OR 20 4- 1- 00 IN 15 RE ve MO 02 20 20 S N N [address] [facility] HC 0 UG NE L T 50 CO 0 MG IN C TA BL ET AC 64 11 01 01 30 30 HO 99 TA Ac TO 76 -2 -0 .0 PK 02 MA ti S 40 4- 1- 00 IN 21 RE ve 30 30 20 20 S N [address] [facility] MG 4 UG NE T TA CO BL ET IN C HY 00 10 01 02 30 30 HO 98 TA Ac ZA 00 -2 -0 .0 PK 92 MA ti AR 60 4- 1- 00 IN 18 RE ve 74 20 20 S N [address] [facility] 0- 1 UG NE 25 T CO TA BL IN ET C SI 65 10 12 01 30 30 HO 98 TA Ac MV 86 -1 -1 .0 PK 95 MA ti 20 4- 8- 00 IN 85 RE ve TA 05 20 20 S N TI [address] [facility] N 9 UG NE 20 T CO MG IN TA C BL ET HY 00 10 12 01 30 30 HO 98 TA Ac ZA 00 -2 -0 .0 PK 92 MA ti AR 60 4- 4- 00 IN 18 RE ve 74 20 20 S N [address] JOHNSON 0- 1 UG NE 25 T CO TA BL IN ET C 00 11 12 00 30 30 HO 99 TA Ac 17 -2 -0 .0 PK 02 MA ti 24 4- 4- 00 IN 20 RE ve 28 20 20 S N [address] JOHNSON 0 UG NE T CO IN C 00 10 12 01 60 30 HO 98 TA Ac 78 -2 -0 .0 PK 92 MA ti 11 4- 4- 00 IN 17 RE ve 22 20 20 S N [address] JOHNSON 0 UG NE T CO IN C ME 68 10 12 01 60 30 HO 98 TA Ac TF 38 -1 -0 .0 PK 92 MA ti OR 20 4- 4- 00 IN 15 RE ve MO 02 20 20 S N N [address] JOHNSON HC 0 UG NE L T 50 CO 0 MG IN C TA BL ET 00 10 12 01 60 30 HO 98 TA Ac 78 -2 -0 .0 PK 92 MA ti 11 4- 4- 00 IN 16 RE ve 19 20 20 S N [address] JOHNSON 0 UG NE T CO IN C AC 64 11 12 00 30 30 HO 99 TA Ac TO 76 -2 -0 .0 PK 02 MA ti S 40 4- 4- 00 IN 21 RE ve 30 30 20 20 S N [address] JOHNSON MG 4 UG NE T TA CO BL ET IN C LE 00 11 12 00 30 30 HO 99 TA Ac VO 52 -2 -0 .0 PK 02 MA ti TH 71 4- 4- 00 IN 22 RE ve YR 34 20 20 S N OX [address] JOHNSON IN 1 UG NE E T 88 CO MC IN G C TA BL ET TR 00 10 12 00 30 30 HO 99 TA Ac IC 07 -1 -0 .0 PK 00 MA ti OR 46 4- 4- 00 IN 54 RE ve 12 20 20 S N [address] JOHNSON 0 UG NE MG T CO TA BL IN ET C SI 65 10 11 00 30 30 HO 98 TA Ac MV 86 -1 -2 .0 PK 95 MA ti 20 4- 0- 00 IN 85 RE ve TA 05 20 20 S N TI [address] JOHNSON N 9 UG NE 20 T CO MG IN TA C BL ET HY 00 10 11 00 30 30 HO 98 No Ac ZA 00 -2 -0 .0 PK 92 t ti AR 60 4- 7- 00 IN 18 Av ve 74 20 20 S ai [address] carlos 0- 1 UG bl 25 e CO TA BL IN ET C TR 00 07 11 02 30 30 HO 98 No Ac IC 07 -1 -0 .0 PK 71 t ti OR 46 5- 7- 00 IN 35 Av ve 12 20 20 S ai [address] la 0 UG bl MG e CO TA BL IN ET C ME 68 10 11 00 60 30 HO 98 No Ac TF 38 -1 -0 .0 PK 92 t ti OR 20 4- 7- 00 IN 15 Av ve MO 02 20 20 S ai N [address] carlos HC 0 UG bl L e 50 CO 0 MG IN C TA BL ET 00 10 11 00 60 30 HO 98 No Ac 78 -2 -0 .0 PK 92 t ti 11 4- 7- 00 IN 16 Av ve 19 20 20 S ai [address] la 0 UG bl e CO IN C AC 64 07 11 02 30 30 HO 98 No Ac TO 76 -1 -0 .0 PK 72 t ti S 40 5- 7- 00 IN 38 Av ve 30 30 20 20 S ai [address] la MG 4 UG bl e TA CO BL ET IN C 00 10 11 00 60 30 HO 98 No Ac 78 -2 -0 .0 PK 92 t ti 11 4- 7- 00 IN 17 Av ve 22 20 20 S ai [address] la 0 UG bl e CO IN C LE 00 07 11 02 30 30 HO 98 No Ac VO 52 -1 -0 .0 PK 71 t ti TH 71 5- 7- 00 IN 36 Av ve YR 34 20 20 S ai OX [address] la IN 1 UG bl E e 88 CO MC IN G C TA BL ET 55 10 10 00 30 30 HO 98 No Ac 11 -0 -2 .0 PK 86 t ti 10 6- 3- 00 IN 49 Av ve 74 20 20 S ai [address] la 0 UG bl e CO IN C 00 07 10 01 30 30 HO 98 No Ac 17 -1 -2 .0 PK 63 t ti 24 5- 3- 00 IN 55 Av ve 28 20 20 S ai [address] la 0 UG bl e CO IN C 00 07 10 02 60 30 HO 98 No Ac 78 -1 -0 .0 PK 63 t ti 11 5- 9- 00 IN 54 Av ve 19 20 20 S ai [address] la 0 UG bl e CO IN C HY 00 07 10 02 30 30 HO 98 No Ac ZA 00 -1 -0 .0 PK 63 t ti AR 60 5- 9- 00 IN 53 Av ve 74 20 20 S ai [address] la 0- 1 UG bl 25 e CO TA BL IN ET C 00 07 10 02 60 30 HO 98 No Ac 78 -1 -0 .0 PK 63 t ti 11 5- 9- 00 IN 52 Av ve 22 20 20 S ai [address] la 0 UG bl e CO IN C ME 68 07 10 02 60 30 HO 98 No Ac TF 38 -2 -0 .0 PK 62 t ti OR 20 1- 9- 00 IN 99 Av ve MO 02 20 20 S ai N [address] la HC 0 UG bl L e 50 CO 0 MG IN C TA BL ET AC 64 07 10 01 30 30 HO 98 No Ac TO 76 -1 -0 .0 PK 72 t ti S 40 5- 9- 00 IN 38 Av ve 30 30 20 20 S ai [address] la MG 4 UG bl e TA CO BL ET IN C TR 00 07 09 01 30 30 HO 98 No Ac IC 07 -1 -2 .0 PK 71 t ti OR 46 5- 6- 00 IN 35 Av ve 12 20 20 S ai [address] la 0 UG bl MG e CO TA BL IN ET C LE 00 07 09 01 30 30 HO 98 No Ac VO 52 -1 -2 .0 PK 71 t ti TH 71 5- 6- 00 IN 36 Av ve YR 34 20 20 S ai OX [address] gonzalez IN 1 UG bl E e 88 CO MC IN G C TA BL ET LI 00 09 09 00 30 30 HO 98 No Ac PI 07 -0 -1 .0 PK 76 t ti TO 10 5- 1- 00 IN 90 Av ve R 15 20 20 S ai [address] la 3 UG bl MG e CO TA BL IN ET C AC 64 07 08 00 30 30 HO 98 No Ac TO 76 -1 -2 .0 PK 72 t ti S 40 5- 8- 00 IN 38 Av ve 30 30 20 20 S ai [address] la MG 4 UG bl e TA CO BL ET IN C 00 07 08 01 60 30 HO 98 No Ac 78 -1 -2 .0 PK 63 t ti 11 5- 8- 00 IN 54 Av ve 19 20 20 S ai [address] la 0 UG bl e CO IN C 00 07 08 01 60 30 HO 98 No Ac 78 -1 -2 .0 PK 63 t ti 11 5- 8- 00 IN 52 Av ve 22 20 20 S ai [address] la 0 UG bl e CO IN C LE 00 07 08 00 30 30 HO 98 No Ac VO 52 -1 -2 .0 PK 71 t ti TH 71 5- 8- 00 IN 36 Av ve YR 34 20 20 S ai OX [address] gonzalez IN 1 UG bl E e 88 CO MC IN G C TA BL ET ME 68 07 08 01 60 30 HO 98 No Ac TF 38 -2 -2 .0 PK 62 t ti OR 20 1- 8- 00 IN 99 Av ve MO 02 20 20 S ai N [address] la HC 0 UG bl L e 50 CO 0 MG IN C TA BL ET HY 00 07 08 01 30 30 HO 98 No Ac ZA 00 -1 -2 .0 PK 63 t ti AR 60 5- 8- 00 IN 53 Av ve 74 20 20 S ai [address] la 0- 1 UG bl 25 e CO TA BL IN ET C TR 00 07 08 00 30 30 HO 98 No Ac IC 07 -1 -2 .0 PK 71 t ti OR 46 5- 8- 00 IN 35 Av ve 12 20 20 S ai [address] la 0 UG bl MG e CO TA BL IN ET C LI 00 06 08 02 30 30 HO 98 No Ac PI 07 -0 -1 .0 PK 49 t ti TO 10 4- 4- 00 IN 16 Av ve R 15 20 20 S ai [address] la 3 UG bl MG e CO TA BL IN ET C 00 07 08 00 30 30 HO 98 No Ac 17 -1 -0 .0 PK 63 t ti 24 5- 1- 00 IN 55 Av ve 28 20 20 S ai [address] la 0 UG bl e CO IN C 00 07 08 00 60 30 HO 98 No Ac 78 -1 -0 .0 PK 63 t ti 11 5- 1- 00 IN 52 Av ve 22 20 20 S ai [address] la 0 UG bl e CO IN C HY 00 07 08 00 30 30 HO 98 No Ac ZA 00 -1 -0 .0 PK 63 t ti AR 60 5- 1- 00 IN 53 Av ve 74 20 20 S ai [address] la 0- 1 UG bl 25 e CO TA BL IN ET C 00 07 08 00 60 30 HO 98 No Ac 78 -1 -0 .0 PK 63 t ti 11 5- 1- 00 IN 54 Av ve 19 20 20 S ai [address] la 0 UG bl e CO IN C LE 00 04 08 02 30 30 HO 98 No Ac VO 52 -1 -0 .0 PK 44 t ti TH 71 5- 1- 00 IN 77 Av ve YR 34 20 20 S ai OX [address] carlos IN 1 UG bl E e 88 CO MC IN G C TA BL ET ME 68 07 08 00 60 30 HO 98 No Ac TF 38 -2 -0 .0 PK 62 t ti OR 20 1- 1- 00 IN 99 Av ve MO 02 20 20 S ai N [address] la HC 0 UG bl L e 50 CO 0 MG IN C TA BL ET AC 64 04 08 02 30 30 HO 98 No Ac TO 76 -1 -0 .0 PK 45 t ti S 40 5- 1- 00 IN 54 Av ve 30 30 20 20 S ai [address] la MG 4 UG bl e TA CO BL ET IN C TR 00 04 08 02 30 30 HO 98 No Ac IC 07 -1 -0 .0 PK 44 t ti OR 46 5- 1- 00 IN 78 Av ve 12 20 20 S ai [address] la 0 UG bl MG e CO TA BL IN ET C 00 04 07 02 15 30 HO 98 No Ac 17 -1 -1 .0 PK 39 t ti 24 5- 7- 00 IN 12 Av ve 28 20 20 S ai [address] la 0 UG bl e CO IN C LI 00 06 07 01 30 30 HO 98 No Ac PI 07 -0 -1 .0 PK 49 t ti TO 10 4- 7- 00 IN 16 Av ve R 15 20 20 S ai [address] la 3 UG bl MG e CO TA BL IN ET C HY 00 04 07 02 30 30 HO 98 No Ac ZA 00 -1 -0 .0 PK 34 t ti AR 60 8- 3- 00 IN 46 Av ve 74 20 20 S ai [address] la 0- 1 UG bl 25 e CO TA BL IN ET C ME 68 04 07 02 60 30 HO 98 No Ac TF 38 -1 -0 .0 PK 35 t ti OR 20 5- 3- 00 IN 03 Av ve MO 02 20 20 S ai N [address] la HC 0 UG bl L e 50 CO 0 MG IN C TA BL ET AC 64 04 07 01 30 30 HO 98 No Ac TO 76 -1 -0 .0 PK 45 t ti S 40 5- 3- 00 IN 54 Av ve 30 30 20 20 S ai [address] la MG 4 UG bl e TA CO BL ET IN C LE 00 04 07 01 30 30 HO 98 No Ac VO 52 -1 -0 .0 PK 44 t ti TH 71 5- 3- 00 IN 77 Av ve YR 34 20 20 S ai OX [address] carlos IN 1 UG bl E e 88 CO MC IN G C TA BL ET 00 04 07 02 60 30 HO 98 No Ac 78 -1 -0 .0 PK 35 t ti 11 5- 3- 00 IN 02 Av ve 22 20 20 S ai [address] la 0 UG bl e CO IN C 00 04 07 02 60 30 HO 98 No Ac 78 -1 -0 .0 PK 39 t ti 11 5- 3- 00 IN 13 Av ve 19 20 20 S ai [address] la 0 UG bl e CO IN C TR 00 04 07 01 30 30 HO 98 No Ac IC 07 -1 -0 .0 PK 44 t ti OR 46 5- 3- 00 IN 78 Av ve 12 20 20 S ai [address] la 0 UG bl MG e CO TA BL IN ET C 00 04 06 01 15 30 HO 98 No Ac 17 -1 -1 .0 PK 39 t ti 24 5- 2- 00 IN 12 Av ve 28 20 20 S ai [address] la 0 UG bl e CO IN C LI 00 06 06 00 30 30 HO 98 No Ac PI 07 -0 -1 .0 PK 49 t ti TO 10 4- 2- 00 IN 16 Av ve R 15 20 20 S ai [address] la 3 UG bl MG e CO TA BL IN ET C TR 00 04 06 00 30 30 HO 98 No Ac IC 07 -1 -0 .0 PK 44 t ti OR 46 5- 5- 00 IN 78 Av ve 12 20 20 S ai [address] la 0 UG bl MG e CO TA BL IN ET C LE 00 04 06 00 30 30 HO 98 No Ac VO 52 -1 -0 .0 PK 44 t ti TH 71 5- 5- 00 IN 77 Av ve YR 34 20 20 S ai OX [address] gonzalez IN 1 UG bl E e 88 CO MC IN G C TA BL ET HY 00 04 06 01 30 30 HO 98 No Ac ZA 00 -1 -0 .0 PK 34 t ti AR 60 8- 5- 00 IN 46 Av ve 74 20 20 S ai [address] la 0- 1 UG bl 25 e CO TA BL IN ET C 00 04 06 01 60 30 HO 98 No Ac 78 -1 -0 .0 PK 39 t ti 11 5- 5- 00 IN 13 Av ve 19 20 20 S ai 11 08 08 la 0 UG bl e CO IN C AC 64 04 06 00 30 30 HO 98 No Ac TO 76 -1 -0 .0 PK 45 t ti S 40 5- 5- 00 IN 54 Av ve 30 30 20 20 S ai [address] gonzalez MG 4 UG bl e TA CO BL ET IN C 00 04 06 01 60 30 HO 98 No Ac 78 -1 -0 .0 PK 35 t ti 11 5- 5- 00 IN 02 Av ve 22 20 20 S ai 81 08 08 la 0 UG bl e CO IN C ME 68 04 06 01 60 30 HO 98 No Ac TF 38 -1 -0 .0 PK 35 t ti OR 20 5- 5- 00 IN 03 Av ve MO 02 20 20 S ai N [address] gonzalez HC 0 UG bl L e 50 CO 0 MG IN C TA BL ET LI 00 01 05 02 30 30 HO 98 No Ac PI 07 -1 -2 .0 PK 19 t ti TO 10 5- 2- 00 IN 71 Av ve R 15 20 20 S ai [address] la 3 UG bl MG e CO TA BL IN ET C 00 05 05 00 15 30 HO 98 No Ac 17 -0 -2 .0 PK 39 t ti 24 5- 2- 00 IN 12 Av ve 28 20 20 S ai [address] la 0 UG bl e CO IN C 00 05 05 00 60 30 HO 98 No Ac 78 -0 -2 .0 PK 39 t ti 11 5- 2- 00 IN 13 Av ve 19 20 20 S ai [address] la 0 UG bl e CO IN C 00 04 05 00 60 30 HO 98 No Ac 78 -1 -0 .0 PK 35 t ti 11 5- 8- 00 IN 02 Av ve 22 20 20 S ai [address] la 0 UG bl e CO IN C AC 64 01 05 02 30 30 HO 98 No Ac TO 76 -1 -0 .0 PK 16 t ti S 40 5- 8- 00 IN 25 Av ve 30 30 20 20 S ai [address] la MG 4 UG bl e TA CO BL ET IN C TR 00 01 05 02 30 30 HO 98 No Ac IC 07 -1 -0 .0 PK 15 t ti OR 46 5- 8- 00 IN 07 Av ve 12 20 20 S ai [address] la 0 UG bl MG e CO TA BL IN ET C ME 68 04 05 00 60 30 HO 98 No Ac TF 38 -1 -0 .0 PK 35 t ti OR 20 5- 8- 00 IN 03 Av ve MO 02 20 20 S ai N [address] la HC 0 UG bl L e 50 CO 0 MG IN C TA BL ET LE 00 01 04 02 30 30 HO 98 No Ac VO 52 -1 -2 .0 PK 12 t ti TH 71 5- 4- 00 IN 05 Av ve YR 34 20 20 S ai OX [address] carlos IN 1 UG bl E e 88 CO MC IN G C TA BL ET HY 00 04 04 00 30 30 HO 98 No Ac ZA 00 -1 -2 .0 PK 34 t ti AR 60 8- 4- 00 IN 46 Av ve 74 20 20 S ai [address] la 0- 1 UG bl 25 e CO TA BL IN ET C 00 01 04 02 60 30 HO 98 No Ac 78 -1 -2 .0 PK 12 t ti 11 5- 4- 00 IN 04 Av ve 19 20 20 S ai [address] la 0 UG bl e CO IN C TR 00 01 04 01 30 30 HO 98 No Ac IC 07 -1 -1 .0 PK 15 t ti OR 46 5- 7- 00 IN 07 Av ve 12 20 20 S ai [address] la 0 UG bl MG e CO TA BL IN ET C 00 01 04 01 60 30 HO 98 No Ac 78 -1 -1 .0 PK 12 t ti 11 5- 7- 00 IN 04 Av ve 19 20 20 S ai [address] la 0 UG bl e CO IN C ME 68 01 04 02 60 30 HO 98 No Ac TF 38 -1 -1 .0 PK 03 t ti OR 20 5- 7- 00 IN 89 Av ve MO 02 20 20 S ai N [address] la HC 0 UG bl L e 50 CO 0 MG IN C TA BL ET LE 00 01 04 01 30 30 HO 98 No Ac VO 52 -1 -1 .0 PK 12 t ti TH 71 5- 7- 00 IN 05 Av ve YR 34 20 20 S ai OX [address] gonzalez IN 1 UG bl E e 88 CO MC IN G C TA BL ET 00 01 04 02 60 30 HO 98 No Ac 78 -1 -1 .0 PK 04 t ti 11 5- 7- 00 IN 37 Av ve 22 20 20 S ai [address] la 0 UG bl e CO IN C HY 00 01 04 02 30 30 HO 98 No Ac ZA 00 -1 -1 .0 PK 04 t ti AR 60 5- 7- 00 IN 38 Av ve 74 20 20 S ai [address] carlos 0- 1 UG bl 25 e CO TA BL IN ET C LI 00 01 04 01 30 30 HO 98 No Ac PI 07 -1 -1 .0 PK 19 t ti TO 10 5- 0- 00 IN 71 Av ve R 15 20 20 S ai [address] la 3 UG bl MG e CO TA BL IN ET C 00 02 04 02 15 30 HO 98 No Ac 17 -0 -1 .0 PK 08 t ti 24 1- 0- 00 IN 72 Av ve 28 20 20 S ai [address] la 0 UG bl e CO IN C AC 64 01 04 01 30 30 HO 98 No Ac TO 76 -1 -1 .0 PK 16 t ti S 40 5- 0- 00 IN 25 Av ve 30 30 20 20 S ai [address] la MG 4 UG bl e TA CO BL ET IN C LI 00 01 04 00 30 30 HO 98 No Ac PI 07 -1 -0 .0 PK 19 t ti TO 10 5- 7- 00 IN 71 Av ve R 15 20 20 S ai [address] la 3 UG bl MG e CO TA BL IN ET C 00 02 04 01 15 30 HO 98 No Ac 17 -0 -0 .0 PK 08 t ti 24 1- 7- 00 IN 72 Av ve 28 20 20 S ai [address] la 0 UG bl e CO IN C AC 64 01 04 00 30 30 HO 98 No Ac TO 76 -1 -0 .0 PK 16 t ti S 40 5- 7- 00 IN 25 Av ve 30 30 20 20 S ai [address] la MG 4 UG bl e TA CO BL ET IN C 00 01 03 01 60 30 HO 98 No Ac 78 -1 -2 .0 PK 04 t ti 11 5- 6- 00 IN 37 Av ve 22 20 20 S ai [address] la 0 UG bl e CO IN C TR 00 01 03 00 30 30 HO 98 No Ac IC 07 -1 -2 .0 PK 15 t ti OR 46 5- 6- 00 IN 07 Av ve 12 20 20 S ai [address] la 0 UG bl MG e CO TA BL IN ET C ME 68 01 03 01 60 30 HO 98 No Ac TF 38 -1 -2 .0 PK 03 t ti OR 20 5- 6- 00 IN 89 Av ve MO 02 20 20 S ai N [address] la HC 0 UG bl L e 50 CO 0 MG IN C TA BL ET 00 01 03 00 60 30 HO 98 No Ac 78 -1 -2 .0 PK 12 t ti 11 5- 6- 00 IN 04 Av ve 19 20 20 S ai [address] la 0 UG bl e CO IN C LI 00 10 03 02 30 30 HO 97 No Ac PI 07 -1 -2 .0 PK 92 t ti TO 10 8- 6- 00 IN 22 Av ve R 15 20 20 S ai [address] la 3 UG bl MG e CO TA BL IN ET C LE 00 01 03 00 30 30 HO 98 No Ac VO 52 -1 -2 .0 PK 12 t ti TH 71 5- 6- 00 IN 05 Av ve YR 34 20 20 S ai OX [address] gonzalez IN 1 UG bl E e 88 CO MC IN G C TA BL ET 00 02 03 00 15 30 HO 98 No Ac 17 -0 -2 .0 PK 08 t ti 24 1- 6- 00 IN 72 Av ve 28 20 20 S ai [address] la 0 UG bl e CO IN C HY 00 01 03 01 30 30 HO 98 No Ac ZA 00 -1 -2 .0 PK 04 t ti AR 60 5- 6- 00 IN 38 Av ve 74 20 20 S ai [address] la 0- 1 UG bl 25 e CO TA BL IN ET C HY 00 01 03 00 30 30 HO 98 No Ac ZA 00 -1 -2 .0 PK 04 t ti AR 60 5- 5- 00 IN 38 Av ve 74 20 20 S ai [address] la 0- 1 UG bl 25 e CO TA BL IN ET C 00 01 03 00 60 30 HO 98 No Ac 78 -1 -2 .0 PK 04 t ti 11 5- 5- 00 IN 37 Av ve 22 20 20 S ai [address] la 0 UG bl e CO IN C ME 68 01 03 00 60 30 HO 98 No Ac TF 38 -1 -2 .0 PK 03 t ti OR 20 5- 5- 00 IN 89 Av ve MO 02 20 20 S ai N [address] la HC 0 UG bl L e 50 CO 0 MG IN C TA BL ET AC 64 10 03 02 30 30 HO 97 No Ac TO 76 -1 -2 .0 PK 87 t ti S 40 8- 5- 00 IN 43 Av ve 30 30 20 20 S ai [address] la MG 4 UG bl e TA CO BL ET IN C TR 00 01 03 00 30 30 HO 98 No Ac IC 07 -1 -2 .0 PK 02 t ti OR 46 1- 4- 00 IN 54 Av ve 12 20 20 S ai [address] la 0 UG bl MG e CO TA BL IN ET C 00 11 03 02 60 30 HO 97 No Ac 78 -0 -2 .0 PK 83 t ti 11 9- 4- 00 IN 97 Av ve 19 20 20 S ai [address] la 0 UG bl e CO IN C LE 00 01 03 00 30 30 HO 98 No Ac VO 52 -1 -2 .0 PK 02 t ti TH 71 1- 4- 00 IN 53 Av ve YR 34 20 20 S ai OX [address] gonzalez IN 1 UG bl E e 88 CO MC IN G C TA BL ET 00 11 03 02 15 30 HO 97 No Ac 17 -0 -2 .0 PK 81 t ti 24 1- 4- 00 IN 72 Av ve 28 20 20 S ai [address] gonzalez 0 UG bl e CO IN C LI 00 10 11 18 30 30 HO 97 No Ac PI 07 -1 -2 .0 PK 92 t ti TO 10 IN 22 Av ve R 15 20 20 S ai [address] gonzalez 3 UG bl MG e CO TA BL IN ET C Encounters Encounter Start End Date Code Location Performer Type Date [facility] - 7 7 [facility] - 7 7 [facility] - 7 7 [facility] 7 7 [facility] - 5 5 [facility] - 5 5 [facility] [place] [place] [facility] - 3 3 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 [facility] - 1 1 [facility] - 8 8 [facility]
--- OUTSIDE RECORDS SUMMARY | 2017-08-21 15:00 | External Medical Summary Rpt | CCD ---
Author Author , BHAVANI BECKHAM Address Unknown Phone Care Team Providers Care Welt Butter Hand Name Role Phone [facility], Unavailable Unavailable [facility], Unavailable Unavailable [facility] Unavailable Unavailable INC, [facility] Unavailable Unavailable HOSPITAL P, [facility], Unavailable Unavailable [facility], Unavailable Unavailable [facility] Unavailable Unavailable INC, [facility] Unavailable Unavailable [facility] Un[facility], [facility] Unavailable Unavailable HOLDINGS, [facility], Unavailable Unavailable 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 Unavailable Unavailable CO H[facility], 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 THY E119 TYPE 2 05-28-2017 [facility] MELLITUS WITHOUT COMPLICATIO NS E785 HYPERLIPIDE 05-28-2017 [facility] UNSPECIFIED I10 ESSENTIAL 05-28-2017 [facility] HYPERTENSIO N 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 [id number] OTH SPEC 03-18-2017 [facility] ENTHESOPATH PHYSICIANS IES UNS LOW GROUP LIMB EXCLUD FOOT M1711 UNILATERAL 02-25-2017 [facility] TIS RIGHT KNEE M1712 UNILATERAL 02-25-2017 [facility] TIS LEFT KNEE [id number] PAIN IN 02-25-2017 [facility] [id number] PAIN IN 02-25-2017 [facility] N390 URINARY 02-25-2017 [facility] INFECTION SITE NOT SPECIFIED [id number] PAIN IN 12-29-2016 [facility] E118 TYPE 2 12-28-2016 [facility] MELLITUS W/UNS COMPLICATIO NS [id number] UNSPECIFIED 12-28-2016 [facility] INITIAL ENCOUNTER E1165 TYPE 2 11-24-2016 [facility] MELLITUS HOLDINGS WITH HYPERGLYCEM IA R48096 PRIMARY 11-24-2016 [facility]ICAL TIS LEFT IMAGING ASS ANKLE AND FOOT K08234 PAIN IN 11-24-2016 [facility]KLE [facility] M722 PLANTAR 11-24-2016 [facility] FIBROMATOSI S M7731 CALCANEAL 11-24-2016 [facility] RIGHT [facility]ICAL FOOT IMAGING ASS M7732 CALCANEAL 11-24-2016 [facility] LEFT MEDICAL FOOT IMAGING ASS [id number] PAIN IN 11-24-2016 [facility] [id number] PAIN IN 11-24-2016 [facility] LEFT FOOT [facility] Z760 ENCOUNTER 11-24-2016 [facility] FOR ISSUE CLINIC OF REPEAT PRESCRIPTIO N B888 OTHER 09-01-2016 [facility] SPECIFIED [facility] INFESTATION S E538 DEFICIENCY 02-28-2016 [facility] OF OTHER [facility] SPECIFIED B HOLDINGS GROUP VITAMINS I739 PERIPHERAL 02-28-2016 [facility] DISEASE UNSPECIFIED A499 BACTERIAL 06-27-2015 [facility] UNSPECIFIED FOUNDATION I129 HYPERTENSIV 06-27-2015 [facility] E CKD SERV W/STAGE 1-4 FOUNDATION CKD OR UNS CKD N183 CHRONIC 06-27-2015 [facility] DISEASE [facility] STAGE 3 MODERATE N3021 OTHER 06-27-2015 [facility] WITH HEMATURIA R809 PROTEINURIA 06-27-2015 [facility] UNSPECIFIED FOUNDATION 2689 UNSPECIFIED 06-18-2015 [facility] 7910 PROTEINURIA 06-18-2015 [facility] 19574 OTHER 06-17-2015 [facility] SPECIFIED [facility]ICAL DISORDER OF IMAGING ASS KIDNEY AND URETER 73732 MICROSCOPIC 06-17-2015 [facility] 90189 URINARY 06-17-2015 [facility] 55966 HEMATURIA 06-06-2015 [facility] P 2449 UNSPECIFIED 05-22-2015 [facility] HYPOTHYROID HOLDINGS ISM 92695 DIAB W/O 05-22-2015 [facility] COMP TYPE [facility] II/UNS NOT HOLDINGS STATED UNCNTRL 94184 DIAB 05-22-2015 [facility] W/NEURO [facility] MANIFESTS HOLDINGS TYPE II/UNS NOT UNCNTRL 2724 OTHER AND 05-22-2015 [facility] UNSPECIFIED [facility] HOLDINGS HYPERLIPIDE [place] 4019 UNSPECIFIED 05-22-2015 [facility] ESSENTIAL [facility] HYPERTENSIO HOLDINGS N 09815 DIAB 02-19-2015 [facility] W/UNSPEC [facility] COMP TYPE HOLDINGS II/UNSPEC TYPE UNCNTRL 35628 OSTEOARTHRO 02-19-2015 [facility] S UNSPEC [facility] WHETHER HOLDINGS GEN/LOC UNSPEC SITE V1581 PERS HX 02-19-2015 [facility] NONCOMPLIAN [facility] CE W/MED TX HOLDINGS PRS [place]DS [place]TH 20244 OBESITY, 08-10-2014 [facility] UNSPECIFIED [facility] HOLDINGS 86339 OSTEOARTHRO 02-09-2013 [facility] SIS UNSPEC PHYSICIANS WHETHER GROUP GEN/LOC LOWER LEG 7177 CHONDROMALA 02-09-2013 [facility] ADALID OF PHYSICIANS [place] GROUP 48450 PAIN IN 01-20-2013 [facility], JOINT, 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 LOWER LEG [facility] 2722 MIXED 08-08-2012 [facility] HYPERLIPIDE [facility] SH[facility] 4011 ESSENTIAL 08-08-2012 [facility] HYPERTENSIO [facility]INIC [facility] N, BENIGN 52351 OTHER 06-21-2012 [place] DISTORTIONS AND ENTOPTIC PHENOMENA 4160 PRIMARY 07-11-2010 [facility]MON[facility] HYPERTENSIO N 87199 THYROTOX 10-14-2009 [facility] W/O CLINIC [facility] GOITER/OTH CAUSE W/O CRISIS V5869 LONG-TERM [...] 17 17 21 FA NE 0 41 [place] LY HC L DR 30 UG MG TA BL ET SI 16 10 11 30 30 00 SO Ac MV 72 -1 -1 .0 00 PE ti 90 2- 7- 00 00 RS ve TA 00 20 20 57 TI 51 17 17 21 FA N 7 36 OH [address] UG TA BL ET FE 69 10 11 30 30 00 SO Ac NO 09 -1 -1 .0 00 PE ti FI 70 2- 7- 00 00 RS ve BR 89 20 20 57 AT 40 17 17 21 FA E 7 43 OH [address] UG CA PS UL E VE 68 10 11 30 30 00 SO Ac RA 46 -0 -1 .0 00 PE ti PA 20 6- 0- 00 00 RS ve OH 29 20 20 57 L 30 17 17 21 FA ER 1 35 OH LY [address] MG UG TA BL ET LE 00 10 11 30 30 00 SO Ac VO 37 -0 -1 .0 00 PE ti TH 81 6- 0- 00 00 RS ve YR 80 20 20 57 OX 77 17 17 21 FA IN 7 40 OH E LY 88 DR MC UG G TA BL ET GA 67 10 11 90 30 00 SO Ac BA 87 -0 -1 .0 00 PE ti PE 70 6- 0- 00 00 RS ve NT 22 20 20 56 IN 30 17 17 56 FA 5 16 OH [address] UG CA PS UL E ON 53 10 11 50 30 00 SO Ac ET 88 -0 -1 .0 00 PE ti OU 50 5- 0- 00 00 RS ve CH 24 20 20 56 45 17 17 93 FA UL 0 51 OH TR LY A TE DR ST UG ST RI PS HY 16 10 11 30 [address] 72 -0 -0 .0 00 PE ti OC 90 3- 3- 00 00 RS ve HL 18 20 20 57 OR 31 17 17 21 FA OT 7 38 OH HI LY AZ ID DR E UG 25 MG TA B ME 00 09 10 60 30 00 SO Ac TO 37 -2 -2 .0 00 PE ti AL 80 5- 7- 00 00 RS ve OL 03 20 20 57 OL 21 17 17 21 FA 0 37 OH TA LY RT RA DR TE UG 50 MG TA B VE 68 09 10 30 30 00 SO Ac RA 46 -0 -1 .0 00 PE ti PA 20 8- 3- 00 00 RS ve OH 29 20 20 57 L 30 17 17 21 FA ER 1 35 OH LY [address] MG UG TA BL ET SI 16 09 10 30 30 00 SO Ac MV 72 -0 -1 .0 00 PE ti 90 8- 3- 00 00 RS ve TA 00 20 20 57 TI 51 17 17 21 FA N 7 36 OH [address] UG TA BL ET ME 23 09 10 12 30 00 SO Ac TF 15 -0 -1 0. 00 PE ti OR 50 8- 3- 00 00 RS ve OH 10 20 20 0 57 N 21 17 17 21 FA HC 0 39 OH L LY [address] MG UG TA BL ET LE 00 09 10 30 30 00 SO Ac VO 37 -0 -1 .0 00 PE ti TH 81 8- 3- 00 00 RS ve YR 80 20 20 57 OX 77 17 17 21 FA IN 7 40 OH E LY 88 DR MC UG G TA BL ET PI 16 09 10 30 30 00 SO Ac OG 72 -0 -1 .0 00 PE ti LI 90 8- 3- 00 00 RS ve TA 02 20 20 57 ZO 11 17 17 21 FA NE 0 41 OH LY HC L DR 30 UG MG TA BL ET FE 00 09 10 30 30 00 SO Ac NO 11 -0 -1 .0 00 PE ti FI 50 8- 3- 00 00 RS ve BR 51 20 20 57 AT 10 17 17 21 FA E 1 43 OH [address] UG CA PS UL E HY 16 09 10 30 [address] 72 -0 -0 .0 00 PE ti OC 90 1- 6- 00 00 RS ve HL 18 20 20 56 OR 31 17 17 56 FA OT 7 14 OH HI LY AZ ID DR E UG 25 MG TA B ME 00 08 09 60 30 00 SO Ac TO 37 -2 -2 .0 00 PE ti AL 80 4- 9- 00 00 RS ve OL 03 20 20 56 OL 21 17 17 56 FA 0 13 OH TA LY RT RA DR TE UG 50 MG TA B GA 67 08 09 90 30 00 SO Ac BA 87 -2 -2 .0 00 PE ti PE 70 1- 2- 00 00 RS ve NT 22 20 20 56 IN 30 17 17 56 FA 5 16 OH [address] UG CA PS UL E LE 00 08 09 30 30 00 SO Ac VO 37 -1 -1 .0 00 PE ti TH 81 0- 5- 00 00 RS ve YR 80 20 20 56 OX 77 17 17 56 FA IN 7 17 OH E LY 88 DR MC UG G TA BL ET FE 00 08 09 30 30 00 SO Ac NO 11 -1 -1 .0 00 PE ti FI 50 0- 5- 00 00 RS ve BR 51 20 20 56 AT 10 17 17 56 FA E 1 38 OH [address] UG CA PS UL E PI 16 08 30 30 00 SO Ac OG 72 -1 -1 .0 00 PE ti LI 90 0- 5- 00 00 RS ve TA 02 20 20 56 ZO 11 17 17 56 FA NE 0 18 OH LY HC L DR 30 UG MG TA BL ET ME 23 08 09 12 30 00 SO Ac TF 15 -0 -0 0. 00 PE ti OR 50 7- 8- 00 00 RS ve OH 10 20 20 0 55 N 21 17 17 80 FA HC 0 87 OH L LY [address] MG UG TA BL ET VE 68 08 09 30 30 00 SO Ac RA 46 -0 -0 .0 00 PE ti PA 20 7- 8- 00 00 RS ve OH 29 20 20 56 L 30 17 17 56 FA ER 1 11 OH LY [address] MG UG TA BL ET SI 16 08 30 30 00 SO Ac MV 72 -0 -0 .0 00 PE ti 90 7- 8- 00 00 RS ve TA 00 20 20 56 TI 51 17 17 56 FA N 7 12 OH [address] UG TA BL ET ON 53 08 09 50 30 00 SO Ac ET 88 -0 -0 .0 00 PE ti OU 50 1- 1- 00 00 RS ve CH 24 20 20 56 45 17 17 93 FA UL 0 51 OH TR LY A TE DR ST UG ST RI PS HY 16 08 [address] 72 -2 -2 .0 00 PE ti OC 90 4- 5- 00 00 RS ve HL 18 20 20 56 OR 31 17 17 56 FA OT 7 14 OH HI LY AZ ID DR E UG 25 MG TA B ME 08 60 30 00 SO Ac TO 37 -2 -2 .0 00 PE ti AL 80 4- 5- 00 00 RS ve OL 03 20 20 56 OL 21 17 17 56 FA 0 13 OH TA LY RT RA DR TE UG 50 MG TA B FE 08 30 30 00 SO Ac NO 11 -1 -1 .0 00 PE ti FI 50 4- 8- 00 00 RS ve BR 51 20 20 56 AT 10 17 17 56 FA E 1 38 OH [address] UG CA PS UL E GA 67 07 08 90 30 00 SO Ac BA 87 -0 -1 .0 00 PE ti PE 70 6- 1- 00 00 RS ve NT 22 20 20 55 IN 30 17 17 80 FA 5 89 OH [address] UG CA PS UL E VE 68 07 08 30 30 00 SO Ac RA 46 -0 -1 .0 00 PE ti PA 20 6- 1- 00 00 RS ve OH 29 20 20 56 L 30 17 17 56 FA ER 1 11 OH LY [address] MG UG TA BL ET SI 16 03 27 30 30 00 SO Ac MV 72 -0 -1 .0 00 PE ti 90 6- 1- 00 00 RS ve TA 00 20 20 56 TI 51 17 17 56 FA N 7 12 OH [address] UG TA BL ET LE 00 08 30 30 00 SO Ac VO 78 -0 -1 .0 00 PE ti TH 15 6- 1- 00 00 RS ve YR 18 20 20 56 OX 39 17 17 56 FA IN 2 17 OH E LY 88 DR MC UG G TA BL ET PI 16 08 30 30 00 SO Ac OG 72 -1 -1 .0 00 PE ti LI 90 0- 1- 00 00 RS ve TA 02 20 20 56 ZO 11 17 17 56 FA NE 0 18 OH LY HC L DR 30 UG MG TA BL ET HY 16 02 24 30 [address] 72 -2 -2 .0 00 PE ti OC 90 7- 8- 00 00 RS ve HL 18 20 20 56 OR 31 17 17 56 FA OT 7 14 OH HI LY AZ ID DR E UG 25 MG TA B ME 00 06 07 60 30 00 SO Ac TO 37 -1 -2 .0 00 PE ti AL 80 9- 1- 00 00 RS ve OL 03 20 20 56 OL 21 17 17 56 FA 0 13 OH TA LY RT RA DR TE UG 50 MG TA B VE 68 07 30 30 00 SO Ac RA 46 -0 -1 .0 00 PE ti PA 20 8- 4- 00 00 RS ve OH 29 20 20 56 L 30 17 17 56 FA ER 1 11 OH LY [address] MG UG TA BL ET SI 16 02 24 30 30 00 SO Ac MV 72 -0 -1 .0 00 PE ti 90 8- 4- 00 00 RS ve TA 00 20 20 56 TI 51 17 17 56 FA N 7 12 OH [address] UG TA BL ET LE 00 02 24 30 30 00 SO Ac VO 78 -0 -1 .0 00 PE ti TH 15 8- 4- 00 00 RS ve YR 18 20 20 56 OX 39 17 17 56 FA IN 2 17 OH E LY 88 DR MC UG G TA BL ET PI 16 02 24 30 30 00 SO Ac OG 72 -0 -1 .0 00 PE ti LI 90 8- 4- 00 00 RS ve TA 02 20 20 56 ZO 11 17 17 56 FA NE 0 18 OH LY HC L DR 30 UG MG TA BL ET CE 65 06 07 20 10 00 SO Ac FD 86 -0 -1 .0 00 PE ti IN 20 8- 4- 00 00 RS ve IR 17 20 20 56 76 17 17 56 FA 30 0 19 OH [address] CA UG PS UL E FE 00 02 24 30 30 00 SO Ac NO 11 -0 -1 .0 00 PE ti FI 50 8- 4- 00 00 RS ve BR 51 20 20 56 AT 10 17 17 56 FA E 1 38 OH [address] UG CA PS UL E ME 23 01 23 12 30 00 SO Ac TF 15 -3 -3 0. 00 PE ti OR 50 1- 0- 00 00 RS ve OH 10 20 20 0 55 N 21 17 17 80 FA HC 0 87 OH L LY [address] MG UG TA BL ET HY 16 01 23 30 [address] 72 -2 -2 .0 00 PE ti OC 90 4- 3- 00 00 RS ve HL 18 20 20 55 OR 31 17 17 80 FA OT 7 86 OH HI LY AZ ID DR E UG 25 MG TA B ME 00 01 23 60 30 00 SO Ac TO 37 -1 -1 .0 00 PE ti AL 80 6- 6- 00 00 RS ve OL 03 20 20 55 OL 21 17 17 80 FA 0 85 OH TA LY RT RA DR TE UG 50 MG TA B GA 67 05 30 00 SO Ac BA 87 -1 -1 .0 00 PE ti PE 70 6- 6- 00 00 RS ve NT 22 20 20 55 IN 30 17 17 80 FA 5 89 OH [address] UG CA PS UL E PI 16 01 23 30 30 00 SO Ac OG 72 -0 -0 .0 00 PE ti LI 90 8- 9- 00 00 RS ve TA 02 20 20 55 ZO 11 17 17 82 FA NE 0 13 OH LY HC L DR 30 UG MG TA BL ET SI 16 01 23 30 30 00 SO Ac MV 72 -0 -0 .0 00 PE ti 90 8 00 RS ve TA 00 20 20 55 TI 51 17 17 80 FA N 7 84 OH [address] UG TA BL ET VE 68 05 03 19 30 00 SO Ac RA 46 -0 -0 .0 00 PE ti PA 20 8- 9- 00 RS ve OH 29 20 20 55 L 30 17 17 80 FA ER 1 83 OH LY [address] MG UG TA BL ET FE 00 00 SO Ac NO 11 -0 -0 .0 00 PE ti FI 50 8- 00 RS ve BR 51 20 20 55 AT 10 17 17 80 FA E 1 92 OH [address] UG CA PS UL E LE 00 00 SO Ac VO 78 -0 -0 .0 00 PE ti TH 15 00 RS ve YR 18 20 20 55 OX 39 17 17 80 FA IN 2 90 OH E LY 88 DR MC UG G TA BL ET HY 16 04 02 [address] 72 -2 -2 .0 00 PE ti OC 90 00 RS ve HL 18 20 20 55 OR 31 17 17 80 FA OT 7 86 OH HI LY AZ ID DR E UG 25 MG TA B GA 67 02 05 30 00 SO Ac BA 87 -1 -1 .0 00 PE ti PE 70 9 00 RS ve NT 22 20 20 53 IN 30 17 17 69 FA 5 49 OH [address] UG CA PS UL E VE 68 04 02 16 30 00 SO Ac RA 46 -0 -1 .0 00 PE ti PA 20 00 RS ve OH 29 20 20 55 L 30 17 17 80 FA ER 1 83 OH LY [address] MG UG TA BL ET FE 00 00 SO Ac NO 11 -0 -1 .0 00 PE ti FI 50 6- 2- 00 RS ve BR 51 20 20 55 AT 10 17 17 80 FA E 1 92 OH [address] UG CA PS UL E SI 16 04 02 16 30 00 SO Ac MV 72 -0 -1 .0 00 PE ti 90 6- 2- 00 RS ve TA 00 20 20 55 TI 51 17 17 80 FA N 7 84 OH [address] UG TA BL ET PI 16 04 02 16 30 00 SO Ac OG 72 -0 -1 .0 00 PE ti LI 90 6- 2- 00 00 RS ve TA 02 20 20 55 ZO 11 17 17 82 FA NE 0 13 OH LY HC L DR 30 UG MG TA BL ET LE 00 04 05 30 30 00 SO Ac VO 78 -0 -1 .0 00 PE ti TH 15 6- 2- 00 00 RS ve YR 18 20 20 55 OX 39 17 17 80 FA IN 2 90 OH E LY 88 DR MC UG G TA BL ET ME 00 04 05 60 30 00 SO Ac TO 37 -1 -1 .0 00 PE ti AL 80 2- 2- 00 00 RS ve OL 03 20 20 55 OL 21 17 17 80 FA 0 85 OH TA LY RT RA TE UG 50 MG TA B ON 53 04 05 1. 30 00 SO Ac ET 88 -1 -1 00 00 PE ti OU 50 0- 2- 0 00 RS ve CH 91 20 20 56 10 17 17 10 FA UL 1 70 OH TR LY AM IN DR I UG ME TE R ON 53 04 05 10 30 00 SO Ac ET 88 -1 -1 0. 00 PE ti OU 50 0- 2- 00 00 RS ve CH 24 20 20 0 56 51 17 17 10 FA UL 0 71 OH TR LY A TE ST UG ST RI PS ON 53 04 05 10 30 00 SO Ac ET 88 -1 -1 0. 00 PE ti OU 50 0- 2- 00 00 RS ve CH 14 20 20 0 56 30 17 17 10 FA DE 1 72 OH LI LY CA DR 33 UG G LA NC ET S GA 67 03 05 90 30 00 SO Ac BA 87 -3 -0 .0 00 PE ti PE 70 0- 5- 00 00 RS ve NT 22 20 20 55 IN 30 17 17 80 FA 5 89 OH [address] UG CA PS UL E HY 16 03 04 30 [address] 72 -2 -2 .0 00 PE ti OC 90 2- 1- 00 00 RS ve HL 18 20 20 55 OR 31 17 17 80 FA OT 7 86 OH HI LY AZ ID DR E UG 25 MG TA B VE 68 03 04 30 30 00 SO Ac RA 46 -0 -0 .0 00 PE ti PA 20 7- 7- 00 00 RS ve OH 29 20 20 55 L 30 17 17 80 FA ER 1 83 OH LY [address] MG UG TA BL ET SI 16 03 04 30 30 00 SO Ac MV 72 -0 -0 .0 00 PE ti 90 7- 7- 00 00 RS ve TA 00 20 20 55 TI 51 17 17 80 FA N 7 84 OH [address] UG TA BL ET ME 00 11 21 60 30 00 SO Ac TO 37 -0 -0 .0 00 PE ti AL 80 7- 7- 00 00 RS ve OL 03 20 20 55 OL 21 17 17 80 FA 0 85 OH TA LY RT RA DR TE UG 50 MG TA B ME 23 04 12 30 00 SO Ac TF 15 -0 -0 0. 00 PE ti OR 50 7- 7- 00 00 RS ve OH 10 20 20 0 55 N 21 17 17 80 FA HC 0 87 OH L LY [address] MG UG TA BL ET LE 00 04 30 30 00 SO Ac VO 78 -0 -0 .0 00 PE ti TH 15 7- 7- 00 00 RS ve YR 18 20 20 55 OX 39 17 17 80 FA IN 2 90 [place] E LY 88 [place] G TA BL ET FE 04 30 30 00 SO Ac NO 11 -0 -0 .0 00 PE ti FI 50 7- 7- 00 00 RS ve BR 51 20 20 55 AT 10 17 17 80 FA E 1 92 OH [address] SHARRI CA PS UL E PI 16 03 04 30 30 00 SO Ac OG 72 -0 -0 .0 00 PE ti LI 90 8- 7- 00 00 RS ve TA 02 20 20 55 ZO 11 17 17 82 FA NE 0 13 OH LY HC L DR 30 UG MG TA BL ET GL 12 11 03 12 30 00 SO Ac YB 15 -2 -3 0. 00 PE ti UR 50 4- 1- 00 00 RS ve ID 05 20 20 0 53 E 81 17 17 69 FA 5 0 44 OH MG LY TA DR BL UG ET HY 16 10 23 30 [address] 72 -2 -2 .0 00 PE ti OC 90 2- 4- 00 00 RS ve HL 18 20 20 55 OR 31 17 17 36 FA OT 7 26 OH HI LY AZ ID DR E UG 25 MG TA B LE 03 30 30 00 SO Ac VO 78 -0 -1 .0 00 PE ti TH 15 2- 0- 00 00 RS ve YR 18 20 20 53 OX 39 17 17 69 FA IN 2 41 OH E LY 88 [place] G TA BL ET ME 12 11 03 12 30 00 SO Ac TF 15 -0 -1 0. 00 PE ti OR 50 2- 0- 00 00 RS ve OH 10 20 20 0 53 N 21 17 17 69 FA HC 0 43 OH L LY [address] MG UG TA BL ET SI 16 10 23 30 30 00 SO Ac MV 72 -0 -1 .0 00 PE ti 90 2- 0- 00 00 RS ve TA 00 20 20 55 TI 51 17 17 23 FA N 7 86 OH [address] UG TA BL ET VE 00 10 23 30 30 00 SO Ac RA 09 -0 -1 .0 00 PE ti PA 33 2- 0- 00 00 RS ve OH 04 20 20 55 L 40 17 17 23 FA ER 1 85 OH LY [address] MG UG TA BL ET FE 00 10 23 30 30 00 SO Ac NO 11 -0 -1 .0 00 PE ti FI 50 2- 0- 00 00 RS ve BR 51 20 20 55 AT 10 17 17 23 FA E 1 87 OH [address] UG CA PS UL E ME 00 10 23 60 30 00 SO Ac TO 37 -0 -1 .0 00 PE ti AL 80 6- 0- 00 00 RS ve OL 03 20 20 55 OL 21 17 17 27 FA 0 84 OH TA LY RT RA DR TE UG 50 MG TA B HY 16 09 21 30 [address] 72 -1 -1 .0 00 PE ti OC 90 6- 7- 00 00 RS ve HL 18 20 20 55 OR 31 17 17 36 FA OT 7 26 OH HI LY AZ ID DR E UG 25 MG TA B LE 00 08 21 30 30 00 SO Ac VO 78 -3 -0 .0 00 PE ti TH 15 0- 3- 00 00 RS ve YR 18 20 20 53 OX 39 16 17 69 FA IN 2 41 OH E LY 88 DR MC UG G TA BL ET VE 00 12 30 30 00 SO Ac RA 09 -3 -0 .0 00 PE ti PA 33 0- 3- 00 00 RS ve OH 04 20 20 55 L 40 16 17 23 FA ER 1 85 OH LY [address] MG UG TA BL ET SI 16 08 21 30 30 00 SO Ac MV 72 -3 -0 .0 00 PE ti 90 0- 3- 00 00 RS ve TA 00 20 20 55 TI 51 16 17 23 FA N 7 86 OH [address] UG TA BL ET FE 00 08 21 30 30 00 SO Ac NO 11 -3 -0 .0 00 PE ti FI 50 0- 3- 00 00 RS ve BR 51 20 20 55 AT 10 16 17 23 FA E 1 87 OH [address] UG CA PS UL E ME 00 09 21 60 30 00 SO Ac TO 37 -0 -0 .0 00 PE ti AL 80 4- 3- 00 00 RS ve OL 03 20 20 55 OL 21 17 17 27 FA 0 84 OH TA LY RT RA DR TE UG 50 MG TA B GL 23 12 12 30 00 SO Ac YB 15 -2 -2 0. 00 PE ti UR 50 7- 7- 00 RS ve ID 05 20 20 0 53 E 81 16 17 69 FA 5 0 44 OH MG LY TA DR BL UG ET GA 67 12 90 30 00 SO Ac BA 87 -2 -2 .0 00 PE ti PE 70 7- 7- 00 RS ve NT 22 20 20 53 IN 30 16 17 69 FA 5 49 OH [address] UG CA PS UL E LI 68 08 20 30 30 00 SO Ac SI 18 -2 -2 .0 00 PE ti NO 00 - 7 00 RS ve AL 51 20 20 53 IL 50 16 17 69 FA 3 42 OH [address] UG TA BL ET LE 00 08 20 30 30 00 SO Ac VO 78 -0 -0 .0 00 PE ti TH 15 9 00 RS ve YR 18 20 20 53 OX 39 16 17 69 FA IN 2 41 OH E LY 88 DR MC UG G TA BL ET SI 16 12 30 30 00 SO Ac MV 72 -0 -0 .0 00 PE ti 90 9 00 RS ve TA 00 20 20 53 TI 51 16 17 69 FA N 7 47 OH [address] UG TA BL ET FE 00 12 30 30 00 SO Ac NO 11 -0 -0 .0 00 PE ti FI 50 - 9 00 RS ve BR 51 20 20 53 AT 10 16 17 69 FA E 1 55 OH [address] UG CA PS UL E ME 23 12 12 30 00 SO Ac TF 15 -0 -0 0. 00 PE ti OR 50 1- 9- 00 00 RS ve OH 10 20 20 0 53 N 21 16 17 69 FA HC 0 43 OH L LY [address] MG UG TA BL ET ME 00 12 60 30 00 SO Ac TO 37 -0 -0 .0 00 PE ti AL 80 5- 9- 00 00 RS ve OL 03 20 20 53 OL 21 16 17 69 FA 0 46 OH TA LY RT RA DR TE UG 50 MG TA B SI 68 08 10 2 [address] Ac MV 38 -1 -2 .0 PE 17 ON ti 20 9 RS 52 E ve TA 06 20 20 DI TI 71 11 11 FA XI N 0 OH E [address] UG TA BL ET ME 50 08 10 2 60 30 SO 38 TA Ac TO 74 -1 -2 .0 PE 17 MA ti AL 20 RS 80 RE ve OL 10 20 20 N OL 91 11 11 FA JA 0 OH NE TA LY T RT RA DR TE UG 10 0 MG TA B LE 00 08 10 2 30 30 SO 38 TA Ac VO 37 -1 -2 .0 PE 17 MA ti TH 81 RS 82 RE ve YR 80 20 20 N OX 70 11 11 FA JA IN 1 OH NE E LY T 88 DR MC UG G TA BL ET LO 60 08 10 2 [address] Ac SA 50 -1 -0 .0 PE 17 ON ti RT 52 RS 51 E ve AN 91 20 20 DI -H 70 [address] 9 OH E Z LY D 10 0- DR 25 UG MG TA B TR 00 08 10 2 30 30 SO 38 TA Ac IC 07 -1 -0 .0 PE 17 MA ti OR 46 RS 81 RE ve 12 20 20 N 48 29 11 11 FA JA 0 OH NE MG LY T TA DR BL UG ET 64 08 10 2 60 30 SO 38 TA Ac 72 -1 -0 .0 PE 17 MA ti 00 RS 83 RE ve 12 20 20 N 51 11 11 FA JA 0 OH NE LY T DR UG AC 64 08 10 2 30 30 SO 38 TA Ac TO 76 -1 -0 .0 PE 17 MA ti S 40 RS 84 RE ve 30 30 20 20 N 11 11 11 FA JA MG 4 OH NE LY T TA BL DR ET UG 00 08 10 2 30 30 SO 38 TA Ac 17 -1 -0 .0 PE 17 MA ti 24 RS 85 RE ve 28 20 20 N 66 11 11 FA JA 0 OH NE LY T DR UG ME 68 08 10 2 30 30 SO 38 TA Ac TF 38 -1 -0 .0 PE 17 MA ti OR 20 RS 86 RE ve OH 02 20 20 N N 81 11 11 FA JA HC 0 OH NE L LY T [address] MG UG TA BL ET LE 00 08 09 2 30 30 SO 38 TA Ac VO 37 -1 -2 .0 PE 17 MA ti TH 81 9- 7- 00 RS 82 RE ve YR 80 20 20 N OX 70 11 11 FA JA IN 1 OH NE E LY T 88 DR MC UG G TA BL ET SI 68 08 09 2 [address] Ac MV 38 -1 -2 .0 PE 17 ON ti 20 9- 3- 00 RS 52 E ve TA 06 20 20 DI TI 71 11 11 FA XI N 0 OH E [address] UG TA BL ET ME 50 08 09 2 60 30 SO 38 TA Ac TO 74 -1 -2 .0 PE 17 MA ti AL 20 9- 3- 00 RS 80 RE ve OL 10 20 20 N OL 91 11 11 FA JA 0 OH NE TA LY T RT RA DR TE UG 10 0 MG TA B PE 00 09 09 0 30 7 SO 38 AL Ac NI 78 -1 -1 .0 PE 40 LE ti CI 11 4- 4- 00 RS 89 N ve LL 65 20 20 BR IN 51 11 11 FA AN 0 OH DO VK LY N I 50 DR 0 UG MG TA BL ET 00 08 09 2 30 30 SO 38 TA Ac 17 -1 -0 .0 PE 17 MA ti 24 9- 9- 00 RS 85 RE ve 28 20 20 N 66 11 11 FA JA 0 OH NE LY T DR UG 64 07 09 2 [address] Ac 72 -0 -0 .0 PE 81 ON ti 00 8- 6- 00 RS 77 E ve 12 20 20 DI 51 11 11 FA XI 1 OH E LY D DR UG AC 64 08 09 1 [address] Ac TO 76 -0 -0 .0 PE 04 ON ti S 40 5- 6- 00 RS 72 E ve 30 30 20 20 DI 11 11 11 FA XI MG 4 OH E LY D TA BL DR ET UG TR 00 08 09 1 [address] Ac IC 07 -0 -0 .0 PE 04 ON ti OR 46 5- 6- 00 RS 73 E ve 12 20 20 DI 48 29 11 11 FA XI 0 OH E MG LY D TA DR BL UG ET LO 13 08 09 2 [address] Ac SA 66 -1 -0 .0 PE 17 ON ti RT 80 9- 6- 00 RS 51 E ve AN 11 20 20 DI -H 89 [address] 0 OH E Z LY D 10 0- DR 25 UG MG TA B ME 68 08 09 2 30 30 SO 38 TA Ac TF 38 -1 -0 .0 PE 17 MA ti OR 20 9- 6- 00 RS 86 RE ve OH 02 20 20 N N 81 11 11 FA JA HC 0 OH NE L LY T [address] MG UG TA BL ET LE 00 07 08 1 [address] Ac VO 37 -2 -2 .0 PE 96 ON ti TH 81 6- 4- 00 RS 11 E ve YR 80 20 20 DI OX 70 11 11 FA XI IN 1 OH E E LY D 88 DR MC UG G TA BL ET ME 50 07 08 1 [address] Ac TO 74 -2 -2 .0 PE 96 ON ti AL 20 6- 4- 00 RS 12 E ve OL 10 20 20 DI OL 91 11 11 FA XI 0 OH E TA LY D RT RA TE UG 10 0 MG TA B SI 68 08 08 2 [address] Ac MV 38 -1 -1 .0 PE 17 ON ti 20 9- 9 00 RS 52 E ve TA 06 20 20 DI TI 71 11 11 FA XI N 0 OH E [address] UG TA BL ET 00 07 08 1 [address] Ac 17 -0 -1 .0 PE 81 ON ti 24 8- 1- 00 RS 76 E ve 28 20 20 DI 66 11 11 FA XI 0 OH E LY D DR SHARRI LO 13 07 08 1 [address] Ac SA 66 -0 -0 .0 PE 81 ON ti RT 80 8- 5- 00 RS 74 E ve AN 11 20 20 DI -H 89 [address] 0 OH E Z LY D 10 0- DR 25 UG MG TA B 64 07 08 2 [address] Ac 72 -0 -0 .0 PE 81 ON ti 00 8- 5- 00 RS 77 E ve 12 20 20 DI 51 11 11 FA XI 1 OH E LY D DR UG AC 64 08 08 1 [address] Ac TO 76 -0 -0 .0 PE 04 ON ti S 40 5- 5- 00 RS 72 E ve 30 30 20 20 DI 11 11 11 FA XI MG 4 OH E LY D TA BL DR ET UG TR 00 08 08 1 [address] Ac IC 07 -0 -0 .0 PE 04 ON ti OR 46 5- 5- 00 RS 73 E ve 12 20 20 DI 48 29 11 11 FA XI 0 OH E MG LY D TA DR BL UG ET LE 00 07 07 1 [address] Ac VO 37 -2 -2 .0 PE 96 ON ti TH 81 6- 6 00 RS 11 E ve YR 80 20 20 DI OX 70 11 11 FA XI IN 1 OH E E LY D 88 DR MC UG G TA BL ET ME 63 07 07 1 [address] Ac TO 30 -2 -2 .0 PE 96 ON ti AL 40 6- 6 00 RS 12 E ve OL 58 20 20 DI OL 11 11 11 FA XI 0 OH E TA LY D RT RA DR TE UG 10 0 MG TA B SI 68 07 07 0 [address] Ac MV 38 -1 -2 .0 PE 85 ON ti 20 3- 0- 00 RS 08 E ve TA 06 20 20 DI TI 71 11 11 FA XI N 0 OH E [address] UG TA BL ET TR 00 07 07 0 [address] Ac IC 07 -0 -0 .0 PE 81 ON ti OR 46 8 RS 72 E ve 12 20 20 DI 48 29 11 11 FA XI 0 OH E MG LY D TA DR BL UG ET ME 68 07 07 0 [address] Ac TF 38 -0 -0 .0 PE 81 ON ti OR 20 8- 8- RS 73 E ve OH 02 20 20 DI N 81 11 11 FA XI HC 0 OH E L LY D [address] MG UG TA BL ET LO 60 07 07 1 [address] Ac SA 50 -0 -0 .0 PE 81 ON ti RT 52 8- 8 RS 74 E ve AN 91 20 20 DI -H 70 [address] 3 OH E Z LY D 10 0- DR 25 UG MG TA B 64 07 07 2 [address] Ac 72 -0 -0 .0 PE 81 ON ti 00 8 8 RS 77 E ve 12 20 20 DI 51 11 11 FA XI 1 OH E LY D DR UG AC 64 07 07 [address] Ac TO 76 -0 -0 .0 PE 81 ON ti S 40 8- 8 RS 78 E ve 30 30 20 20 DI 11 11 11 FA XI MG 4 OH E LY D TA BL DR ET UG 00 07 07 1 [address] Ac 17 -0 -0 .0 PE 81 ON ti 24 8 RS 76 E ve 28 20 20 DI 66 11 11 FA XI 0 [place] E LY D DR UG 00 02 [...] 8- 7- 00 IN 97 E ve OH 02 20 20 S 8 DI N [...] 3- 9- 00 IN 18 RE ve OH 02 20 20 S 4 N N [...] 3- 1- 00 IN 18 RE ve OH 02 20 20 S 4 N N [...] 3- 8- 00 IN 18 RE ve OH 02 20 20 S 4 N N [...] 9- 9- 00 IN 46 RE ve OH 02 20 20 S 3 N N [...] 2- 0- 00 IN 82 RE ve OH 02 20 20 S 8 N N [...] 2- 9- 00 IN 82 RE ve OH 02 20 20 S 8 N N [...] 2- 2- 00 IN 82 RE ve OH 02 20 20 S 8 N N [...] 3- 2- 00 IN 18 E ve OH 02 20 20 S 2 DI N [...] 3- 3- 00 IN 18 E ve OH 02 20 20 S 2 DI N [...] 3- 3- 00 IN 18 E ve OH 02 20 20 S 2 DI N [...] 4- 8- 00 IN 39 RE ve OH 02 20 20 S 0 N N [...] 4- 4- 00 IN 39 RE ve OH 02 20 20 S 0 N N [...] 2- 4- 00 IN 49 RE ve OH 02 20 20 S 6 N N [...] 2- 5- 00 IN 49 RE ve OH 02 20 20 S 6 N N [...] 2- 6- 00 IN 49 RE ve OH 02 20 20 S 6 N N [...] 0- 8- 00 IN 54 RE ve OH 02 20 20 S 4 N N [...] 0- 7- 00 IN 54 RE ve OH 02 20 20 S 4 N N [...] 0- 5- 00 IN 54 RE ve OH 02 20 20 S 4 N N [...] 4- 8- 00 IN 00 RE ve OH 02 20 20 S N N 81 [...] 4- 0- 00 IN 00 RE ve OH 02 20 20 S N N 81 [...] 4- 0- 00 IN 23 E ve OH 02 20 20 S DI N 81 [...] 1- 2- 00 IN 34 E ve OH 02 20 20 S DI N 81 [...] 1- 4- 00 IN 34 E ve OH 02 20 20 S DI N 81 [...] 1- 7- 00 IN 34 E ve OH 02 20 20 S DI N 81 [...] 1- 9- 00 IN 93 E ve OH 02 20 20 S DI N 81 [...] 1- 6- 00 IN 93 E ve OH 02 20 20 S DI N 81 [...] 1- 0- 00 IN 93 E ve OH 02 20 20 S DI N 81 [...] 4- 1- 00 IN 15 RE ve OH 02 20 20 S N N 81 [...] 4- 4- 00 IN 15 RE ve OH 02 20 20 S N N 81 [...] 4- 7- 00 IN 15 Av ve [place] 02 20 20 S ai N 81 [...] 1- 9- 00 IN 99 Av ve [place] 02 20 20 S ai N 81 [...] 1- 8- 00 IN 99 Av ve [place] 02 20 20 S ai N 81 [...] 1- 1- 00 IN 99 Av ve [place] 02 20 20 S ai N 81 [...] 5- 3- 00 IN 03 Av ve [place] 02 20 20 S ai N 81 [...] 5- 5- 00 IN 03 Av ve [place] 02 20 20 S ai N 81 [...] 5- 8- 00 IN 03 Av ve [place] 02 20 20 S ai N 81 [...] 5- 7- 00 IN 89 Av ve [place] 02 20 20 S ai N 81 [...] 5- 6- 00 IN 89 Av ve [place] 02 20 20 S ai N 81 [...] 5- 5- 00 IN 89 Av ve [place] 02 20 20 S ai N 81 [...] End Date Code Location Performer Type Date [facility] - 7 7 [facility] - 7 7 [facility] - 7 7 [facility] - 7 7 [facility] - 5 5 [facility] - 5 5 [facility] - [facility] 3 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 - [facility] 1 [facility] - 8 8 [facility]
--- OUTSIDE RECORDS SUMMARY | 2017-08-21 15:05 | External Medical Summary Rpt ---
Author Author [employer], [employer] Organization [employer] Address Unknown Phone Unavailable Results Hemoglobin & Hematocrit panel in Blood Observa Value Referen Units Interpr Notes Date tion ce etation Range COMMENTS TO THREAD LASTER: EQUIPMENT VALIDATION SPECIALIST TO DRAW AT 1540 SPECIMEN COMMENT: 1 HR POST BLOOD TRANSFUSION Hematocri 37.0 - % Low No Jul 29 t [Volume 47.0 informati 2017 3:40 on in PM Fraction] source of Blood data Hemoglobi 12.2 - g/dL Low No Jul 9 n 16.2 informati 2017 3:40 [Mass/vol on in PM ume] in source Blood data Blood product special preparation [Type] Observa Value Referen Units Interpr Notes Date ti ce etation Range Blood BLOOD No No No BLOOD Jul 9 product UNIT informa informa informa UNIT # 2017 RELEASE tion in tion in in : [id number] 12:45 special source source source 17 PM data data data [id number] prepara RELEASE tion D [Type] 7O'Harry Santana Blood product special preparation [Type] Observa Value Referen Units Interpr Notes Date tion ce etation Range Blood BLOOD No No No BLOOD Jul 9 product UNIT informa informa informa UNIT # 2017 RELEASE tion in ti in in : [id number] 10:50 special source source source 17 AM data data data [id number] prepara RELEASE tion D [Type] 7O'Harry Santana Blood type & Crossmatch panel in Blood Observa Value Referen Units Interpr Notes Date tion ce etation Range Hold? N Transfuse now? 2 UNITS NOW Major COMPAT No No No No Jul 29 crossma informa informa informa informa 2017 tch tion in tion in tion in tion in 9:15 AM [interp source source source source retatio data data data data n] Major COMPAT No No No No Jul 29 crossma informa informa informa informa 2017 tch tion in tion in tion in tion in 9:15 AM [interp source source source source retatio data data data data n] by Immedia te spin Blood type & Crossmatch panel in Blood Observa Value Referen Units Interpr Notes Date ti ce etation Range Hold? N Transfuse now? 2 UNITS NOW Major COMPAT No No No No Jul 29 crossma informa informa informa informa 2017 tch tion in tion in tion in tion in 9:15 AM [interp source source source source retatio data data data data n] Major COMPAT No No No No Jul 9 crossma informa informa informa informa 2017 tch tion in tion in tion in tion in 9:15 AM [interp source source source source retatio data data data data n] by Immedia te spin Blood type & Indirect antibody screen panel in Blood Observa Value Referen Units Interpr Notes ce etation Range Blood NEGATIV NEGATIV No No No Jul 9 group E E informa informa informa 2016 antibod tion in tion in in 9:15 AM y source source source screen data data data [Presen ce] in Serum or Plasma Rh NEGATIV No No No No Jul 9 [Type] E informa informa informa informa 2016 in tion in tion in tion in tion in 9:15 AM Blood source source source source data data data data ABO A No No No Jul 9 group informa informa informa 2016 [Type] tion in ti in ti in 9:15 AM in source source source Blood data data data Hemoglobin & Hematocrit panel in Blood Observa Value Referen Units Interpr Notes Date ti ce etation Range SPECIMEN COMMENT: BLOOD TRANSFUSION ORDERED FOR TODAY Hematocri 37.0 - % Low alert Jul 29 t [Volume 47.0 2016 9:15 CRITICAL AM Fraction] RESULTS of Blood RESU LTS CALLED TO: LINK.GABE 07/29/17 0929 Melita Lucas Hemoglobi 12.2 - g/dL Low alert Jul 29 n 16.2 2016 9:15 [Mass/vol CRITICAL AM ume] in RESULTS Blood RESU LTS CALLED TO: OSMAR 07/29/17 0928 Melita Lucas
--- OUTSIDE RECORDS SUMMARY | 2017-08-21 15:05 | External Medical Summary Rpt | CCD ---
Demographics Preferred Language Hebrew Marital Status Unknown Voodoo Affiliation Unknown Race Unknown Ethnic Group Unknown Author Author , BHAVANI BECKHAM Address Unknown Phone Immunization No patient found.
--- OUTSIDE RECORDS SUMMARY | 2017-08-21 15:05 | External Medical Summary Rpt ---
Author Author [employer], [employer] Organization [employer] Address Unknown Phone Unavailable Results Hemoglobin & Hematocrit panel in Blood Observa Value Referen Units Interpr Notes Date tion ce etation Range COMMENTS TO SAP ARIBA CONSULTANT: PHYSICAL THERAPY MANAGER TO DRAW AT 1540 SPECIMEN COMMENT: 1 [...] source source 17 PM data data data [id number] prepara RELEASE tion D [Type] 7O'Harry Santana Blood product special preparation [Type] Observa Value Referen Units Interpr Notes Date tion ce etation Range Blood BLOOD No No No BLOOD Jul 9 product UNIT informa informa informa UNIT # 2017 RELEASE tion in ti in in : [id number] 10:50 special source source source 17 AM data data data [id number] prepara RELEASE tion D [Type] 7O'Harry Santana [...]
--- OUTSIDE RECORDS SUMMARY | 2017-08-21 15:05 | External Medical Summary Rpt | CCD ---
Demographics Preferred Language Turkmen Marital Status Unknown Oriental Orthodox Affiliation Unknown Race Unknown Ethnic Group Unknown Author Author , BHAVANI BECKHAM Address Unknown Phone Immunization No patient found.
[2017-08-21 16:18] VITALS: BP 132/55
--- NOTE | 2017-08-21 16:51 | RADIOLOGY REPORT PS360 ---
FOOT-LT-3 VIEWS Ordering Physician: Duke Liu MD Patient Age: 62 years: Female HISTORY: FALLfall with left foot pain TECHNIQUE: 3 views left foot COMPARISON :11/24/2016 left foot study available for comparison FINDINGS No significant new findings. No fracture nor subluxation evident. Toes appear intact metatarsals intact. Joint spaces are fairly well maintained with only perhaps slight narrowing the IP joint of toes a which may reflect early degenerative changes here. We again see the prominent plantar calcaneal spur. This measuring up to 12 mm length. Scant if any spurring at insertion of Achilles tendon. There is some mild hypertrophy at the posterior aspect of the talonavicular joint. Also hypertrophic changes of the posterior aspect of the distal tibia which may reflect old healed fracture IMPRESSION: No acute findings at the left foot. Generous posterior calcaneal spur noted Other Minor observations, unchanged since November 2016 study
--- NOTE | 2017-08-21 16:58 | RADIOLOGY REPORT PS360 ---
HIP LT 2-3V W/PELVIS IF PERFOR Ordering Physician: Duke Liu MD Patient Age: 62 years: Female HISTORY: FALL fell at alf with left hip pain TECHNIQUE: AP frog-leg view left hip with AP pelvis COMPARISON :None FINDINGS The left hip shows no acute fracture nor dislocation in the left hip joint spaces well-maintained. May be some minor degenerative changes but these are questionable. Mild dystrophic calcification/ossification of the along the superior aspect of the greater trochanter most likely reflects ligamentous insertion calcification. The right hip with no acute findings. Scant degenerative change. The osseous pelvis is intact with some minor sclerotic changes at the iliac margin of SI joints bilaterally. Likely reflecting early degenerative features in this age & size patient.. Faint Atherosclerotic calcification of the superficial femoral arteries bilaterally. Moderate stool right colon. Generous soft tissue density of pelvis most likely reflect bladder along with the uterus. Pelvic pain persists she may want to consider pelvic ultrasound or CT pelvis to further evaluate this or left hip pain IMPRESSION: ... Left hip. No acute findings. No fracture evident. . Osseous pelvis intact with no acute findings . Small ossification superior to the left greater trochanter is an minor old dystrophic calcification at ligamentous insertion. Concur with the ER physician Note Mild sclerotic changes along iliac margin SI joints bilaterally, most evident on the left.... Most Likely reflecting some early degenerative change. No acute feature No comparison studies.. .
--- NOTE | 2017-08-21 18:08 | RADIOLOGY REPORT PS360 ---
CHEST-PORTABLE Ordering Physician: Duke Liu MD Patient Age: 62 years: Female HISTORY: [facility]. Chest pain TECHNIQUE: AP portable upright chest none available COMPARISON : Available FINDINGS Generous cardiomegaly. With Left ventricular configuration. Suboptimal inspiration crowds markings but no focal infiltrate or pneumothorax. Nothing definitely acute. Mild vascular engorgement but no overt CHF.- Likely mild chronic changes accentuate markings right infrahilar area. . No pneumothorax. No pleural effusion Elevation right hemidiaphragm noted. Laure and mediastinal structures unremarkable. No rib fractures chest wall unremarkable. IMPRESSION: Nothing definitely acute. Cardiomegaly. Upper normal pulmonary vascularity.
--- NOTE | 2017-08-21 18:08 | RADIOLOGY REPORT PS360 ---
CHEST-PORTABLE Ordering Physician: Duke Liu MD Patient Age: 62 years: Female HISTORY: FALL fell at long term. Chest pain TECHNIQUE: AP portable upright chest none available COMPARISON : Available FINDINGS Generous cardiomegaly. With Left ventricular configuration. Suboptimal inspiration crowds markings but no focal infiltrate or pneumothorax. Nothing definitely acute. Mild vascular engorgement but no overt CHF.- Likely mild chronic changes accentuate markings right infrahilar area. . No pneumothorax. No pleural effusion Elevation right hemidiaphragm noted. Laure and mediastinal structures unremarkable. No rib fractures chest wall unremarkable. IMPRESSION: Nothing definitely acute. Cardiomegaly. Upper normal pulmonary vascularity.
== END 2017-08-21 16:47 | disposition home or self-care (01) ==
LOC: ER 14:36
DX: M79.672 Pain in left foot (principal); Z86.718 Personal history of other venous thrombosis and embolism; Z79.01 Long term (current) use of anticoagulants; W06.XXXA Fall from bed, initial encounter

== ENCOUNTER → 2017-09-01 | Outpatient (CLI) | payer MEDICAID ==
--- NOTE | 2017-09-01 12:57 | ST MODIFIED BARIUM SWALLOW ---
SUBJECTIVE-DYSPHAGIA Date: 09/01/17 Time: 1130 Eval Type: Initial Certification - Admitted Date: Primary Diagnosis: Reason for Consult: Dysphagia possible upgrade in diet Pt/Caregiver Concerns: Pt reports all foods make her cough. Onset of symptoms- Symptoms have worsened? no improved? no resolved? no since onset. Current Diet: puree and honey thick liquids Allergies Coded Allergies: No Known Allergies (08/21/17) Home Medications Reported Medications METFORMIN HCL (Metformin 500MG) 1,000 MG PO QAM PIOGLITAZONE HCL (Actos 30MG) 30 MG PO DAILY ASPIRIN (Aspirin) 81 MG PO DAILY Atorvastatin Calcium (Atorvastatin) 40 MG PO QHS HYDROCHLOROTHIAZIDE (Hydrochlorothiazide) 25 MG PO DAILY Metformin HCL (Metformin) 500 MG PO QPM MULTIVITAMIN (Daily Multiple Vitamin) 1 TAB PO DAILY AMLODIPINE BESYLATE (Norvasc) 10 MG PO DAILY Warfarin Sodium (Warfarin 4MG) 4 MG PO DAILY Docusate Sodium 100 MG PO BID L. ACIDOPHILUS/L.BULGARICUS (Floranex Tablet) 1 TAB PO BID Enoxaparin Sodium (Lovenox) 0.87 ML SC BID Gabapentin (Gabapentin 300MG) 300 MG PO TID Acetaminophen (Tylenol XS 500MG) 1,000 MG PO Q6HP PRN PAIN/FEVER Levothyroxine Sodium (Levothyroxine 0.088MG) 0.088 MG PO DAILY Is this assessment r/t stroke? No OBJECTIVE COMMUNICATION/COGNITION Barriers to communication/cog? Yes Orientation POS: Name, Place. Follows Commands POS: Follows 1-step commands, Follows 2-step commands. Able to remember swallow strategies? No Intelligibility Fair ORAL-MOTOR STRUCTURE/FUNCTION Structure/Function WFL: Labial, Buccal, Lingual, Velar, Mandibular. Facial Asymmetry None Laryngeal Function Strong: Voluntary Cough, Throat Clearing. Vocal Quality Normal Dentition Poor dentition RESPIRATORY STATUS/HISTORY Is resp status/hx a concern? No DYSPHAGIA SIGNS W/CONSISTENCY Any S/S of Dysphagia? Yes Coughing- Thin, Niobrara, Honey, Pudding, Pureed, Mechanical Soft, Pill, mixed Lingual Residue- Mechanical Soft VIDEO SWALLOW REPORT Radiologist: Timothy MAI,Khanh Nicholson Level of consciousness: Alert Position (degrees): 90 ORAL STAGE Consistencies used for study: Thin, Niobrara, Honey, Pudding, Pureed, Mechanical Soft, Pill, mixed - WFL: Bolus Formation:, Initiation of Swallow:. - No: Lazaro.spilled into pharynx, Oral Residue. PHARYNGEAL STAGE Consistencies used for study: Thin, Niobrara, Honey, Pudding, Pureed, Mechanical Soft, Pill, mixed Delayed Swallow Reflex? No Epiglottic Closure WFL Penetration-Laryngeal Vestibul Yes - Aspiration? No Pharyngeal Residue? No ASSESSMENT/PLAN ASSESSMENT Impression Ms. Moser, a 62 year old female patient was seen for a MBS. He has a past medical history of a left sided CVA. She has been seeing an MASTER CONTROL SUPERVISOR for dysphagia therapy and referred by her physician and her current speech language pathologist at the nursing facility that she resides to determine if her diet could be upgraded. Her current diet is puree with honey thickened liquid. Ms. Moser was oriented to person and place. She was able to follow directions and respond to questions. Dentition is poor but she was able to chew fruit and mechanical soft consistencies. Ms. Moser is very impusive and takes very large drinks from a cup and with a straw when permitted to drink on her own. Once impulsive tendency was noticed straw and cup drinking was monitored to decrease amount taken in by patient. The following consistencies were presented during the study: honey thickened water, nectar thickened water, puree, pudding, mixed consistencies, and mechanical soft solid. No aspiration was noted with any consistencies, but minor coughing was observed after each drink/bite. Minor pharyngeal residue was noted with mechanical soft. Thin rinse was provided. Laryngeal penetration was observed with the thin rinse. No cough was noted with penetration. Niobrara thick rinse was given without penetration/aspiration. Recommendations: Monitor patient to ensure small bites and sips are taken to avoid impulsive drinking/eating of large amounts. Upgrade diet to nectar thick liquids with mechancal soft solids with ground meats. Try straw drinking nectar liquids to decrease speed of fluid intake. PLAN RECOMMENDATIONS Further skill serv. indicated No SWALLOW GUIDELINES High Aspiration Risk, Eat at Slow Rate PATIENT/CAREGIVER EDUCATION Able-recall/restate what told? No Pt unable to ind. understands due to mental status Reinforcement needed? Yes Rehab Medicare G Code Plan Medicare/G Code eligible? No If pt's [facility] benefits exhausted If patient's Medicare benefits are exhausted, please review: #Min Spent: 20 at 1257
--- NOTE | 2017-09-01 15:52 | RADIOLOGY REPORT PS360 ---
ESOPHAGUS W/CINERADIOGRAPHY: 09/01/2017 10:18 AM CLINICAL HISTORY: Dysphasia ORDERING PHYSICIAN: Akira Murphy MD PATIENT AGE: 62 years COMPARISON: TECHNIQUE: Patient administered varying consistencies of barium contrast, while viewed in lateral position under real-time fluoroscopy with cine recording. FLUOROSCOPY TIME: 2 minutes and 3 seconds The study was performed in conjunction with speech pathologist. Please see that report & recommendations. FINDINGS: Patient was given varying consistencies of barium. This consisted of then, nectar, honey, pudding, puree, mechanical soft, pill, mixed . No aspiration . No significant delay. Minor pharyngeal residue there was laryngeal penetration with thin . No cough reflex IMPRESSION: Mild vestibular penetration with thin liquid Please see speech pathologist report and recommendations.
== END ==
LOC: RAD 10:15
DX: I69.391 Dysphagia following cerebral infarction (principal)